=== PATIENT | female | born 1930 | race Caucasian/White ===

== ENCOUNTER 2017-04-14 10:42 | Emergency (ER) | payer MEDICARE, OTHER ==
[~2017-04-14] VITALS: Ht 170.2 cm; Wt 78.9 kg
[~2017-04-14 10:42] MED LIST: AMLODIPINE BESYL5 MG PO; ATENOLOL25 MG PO; ATENOLOL50 MG PO; GLUCOPHAGE XR500 MG PO; HYDROCHLOROTHIA25 MG PO; KLOR-CON M2020 MEQ PO; LISINOPRIL40 MG PO; LOVASTATIN10 MG PO; METFORMIN HCL500 MG PO; NORCO 5-325 TA1 EACH PO; SYNTHROID88 MCG PO; ULTRAM50 MG PO; VALTREX1000 MG PO; WARFARIN SODIU2.5 MG PO; ZOFRAN ODT4 MG SL
[2017-04-14] MEDS ORDERED: MAGNESIUM400 MG PO (11:01)
[2017-04-14] MEDS ORDERED: SOTALOL80 M1 PO (11:02)
[2017-04-14] MEDS ORDERED: CARDIZEM CD120 MG PO (12:23)
[2017-04-14] MEDS ORDERED: LISINOPRIL10 MG PO (12:23)
--- NOTE | 2017-04-14 14:54 | EKG ---
[facility] [address] [facility] [place] [address] Signed Atrial fibrillation with premature ventricular or aberrantly conducted complexes Minimal voltage criteria for LVH, may be normal variant ST \T\ T wave abnormality, consider lateral ischemia Prolonged QT Abnormal ECG When compared with ECG of 14-APR-2017 10:40, (Unconfirmed) Significant changes have occurred Confirmed by WALKER LOAIZA MD ([id number]) on 04/14/2017 2:54:44 PM Electronically Signed By: WALKER LOAIZA MD 04/14/17 1454 PATIENT NAME: JUANY OJEDA MEG Electrocardiogram DATE OF : 34 PHYSICIAN: WALKER LOAIZA MD REPORT #: [id number] REPORT IS CONFIDENTIAL AND NOT TO BE RELEASED WITHOUT AUTHORIZATION
--- NOTE | 2017-04-14 14:54 | EKG ---
[facility] [address] [facility] [place] [address] Signed Sinus tachycardia Marked ST abnormality, possible inferolateral subendocardial injury Abnormal ECG No previous ECGs available Confirmed by WALKER LOAIZA MD ([id number]) on 04/14/2017 2:54:14 PM Electronically Signed By: WALKER LOAIZA MD 04/14/17 1454 PATIENT NAME: JUANY OJEDA Electrocardiogram DATE OF : 34 PHYSICIAN: WALKER LOAIZA MD REPORT #: [id number] REPORT IS CONFIDENTIAL AND NOT TO BE RELEASED WITHOUT AUTHORIZATION
[2017-06-16] MEDS ORDERED: HYDROCHLOROTHIA25 MG PO (13:29)
[2017-08-13] MEDS ORDERED: LEVOTHYROXINE112 MCG (13:52)
[2017-08-13] MEDS ORDERED: CARDIZEM60 MG PO (15:53)
== END 2017-04-14 12:49 | disposition home or self-care (01) ==
LOC: ED 10:42
DX: I48.91 Unspecified atrial fibrillation (principal); I10 Essential (primary) hypertension; E03.9 Hypothyroidism, unspecified; Z90.710 Acquired absence of both cervix and uterus; Z90.49 Acquired absence of other specified parts of digestive tract; Z90.10 Acquired absence of unspecified breast and nipple; Z88.5 Allergy status to narcotic agent; Z79.899 Other long term (current) drug therapy; Z79.01 Long term (current) use of anticoagulants
CPT/HCPCS: 80053; 84484; 85025; 85610; 93005; 93010; 96374; 99284; J7030

== ENCOUNTER 2017-12-07 13:23 | Inpatient (IN) | payer MEDICARE, OTHER ==
[~2017-12-07] VITALS: Ht 170.2 cm; Wt 71.2 kg
[~2017-12-07 13:23] MED LIST changes: +CARDIZEM CD120 MG PO; +CARDIZEM60 MG PO; +LISINOPRIL10 MG PO; +MAGNESIUM400 MG PO; +SOTALOL80 M1 PO
--- NOTE | 2017-12-07 18:04 | NUR ---
PATIENT ARRIVED TO [facility] FROM ER. PATIENT IS ON 2L OF O2, HAS A VERY PRODUCTIVE SOUNDING COUGH, DENIES PAIN. PATIENT WAS ABLE TO MOVE SELF FROM GURNEY TO BED WITH MINIMAL ASSIST. MILD REDNESS NOTED TO COCCYX AREA, IS BLANCHABLE, NO BREAKDOWN NOTED.
[2017-12-07] MEDS ORDERED: ZESTRIL10 MG PO (18:25)
[2017-12-07] MEDS ORDERED: COUMADIN2.5 MG PO (18:28)
--- NOTE | 2017-12-07 18:40 | NUR ---
Medications reconciled with patient
--- NOTE | 2017-12-07 19:14 | NUR ---
RECEIVED REPORT, PT IS AWAKE AT THIS TIME WITH VISITOR IN THE ROOM.
--- NOTE | 2017-12-07 20:34 | NUR ---
ADMINISTERED MEDS AND TOOK VS, PT IS ON COMMODE AT THIS TIME.
--- NOTE | 2017-12-08 00:15 | NUR ---
HELPED PT TO COMMODE, URINE SAMPLE OBTAINED AND PT IS BACK IN BED WITH ALARM ON AND CALL LIGHT WITHIN REACH.
--- NOTE | 2017-12-08 03:00 | NUR ---
PT IS AWAKE IN BED, VS TAKEN, PT DENIES NEEDS AT THIS TIME. BED ALARM IS ON AND CALL LIGHT IS WITHIN REACH.
--- NOTE | 2017-12-08 04:12 | NUR ---
PT IS A 1PA WITH WALKER, SHE SITS UP AT THE EDGE OF THE BED AT TIMES AND IS UNSTEADY ON HER FEET. PT TRIED GETTING OUT OF BED WITHOUT HELP, USE BED ALARM. PT IS ON DROPLET PRECAUTION FOR PNA. SHE REQUIRES 2 LNC AND LUNGS SOUND DIMINISHED IN THE BASES, SHE ALSO HAS A PRODUCTIVE COUGH. VOIDING QS.
--- NOTE | 2017-12-08 06:43 | NUR ---
OBTAINED VS, PT DENIES FURTHER NEEDS AT THIS TIME.
--- NOTE | 2017-12-08 07:38 | NUR ---
THIS DUST COLLECTOR ATTENDANT GOT PATIENTS BREAKFAST ORDER. ASSISTED PATIENT WITH WASHING FACE AND HANDS. CALL LIGHT IN REACH. NO OTHER NEEDS AT THIS TIME.
--- NOTE | 2017-12-08 08:28 | NUR ---
PT EDUCATED REGARDING NUTRITION. ASSISTED PT IN ORDERING BREAKFAST. PT NOW ON 1L O2 VIA NC, SAT 93%. TITRATED DOWN BY RT JAME. PT UP TO BATHROOM WITH FWW WITH 1 PERSON SBA. PT VOIDED URINE IN TOILET, MISSED HAT. LARGE VOID. PT EDUCATED REGARDING FALL PRECAUTIONS. PT WILL SIT UP IN RECLINER WITH CHAIR ALARM ON FOR BREAKFAST.
--- NOTE | 2017-12-08 08:48 | NUR ---
PT SITTING UP IN RECLINER EATING BREAKFAST. HAS CHAIR ALARM ON.
--- NOTE | 2017-12-08 11:00 | NUR ---
PATIENT SITTING UP IN CHAIR. RN ORDERED PATIENT LUNCH. LINENS CHANGED. CALL BUTTON IN REACH. NO OTHER NEEDS AT THIS TIME.
--- NOTE | 2017-12-08 11:14 | NUR ---
PT SITTING UP AT EDGE OF BED. GAVE TYLENOL 500 MG PO PRN FOR C/O 04/30 HEADACHE. CHECKED BG, 203. BED ALARM ON.
--- NOTE | 2017-12-08 13:06 | NUR ---
PT C/O FEELING SHAKY, COOL AND CLAMY, AND STATED THAT SHE FEELS "A LITTLE BIT DIZZY". CHECKED B. PT DENIED NAUSEA. PT IS EATING LUNCH.
--- NOTE | 2017-12-08 13:21 | EKG ---
[facility] [address] [facility] [place] [address] Signed Normal sinus rhythm Possible Left atrial enlargement Septal infarct , age undetermined Abnormal ECG When compared with ECG of 13-AUG-2017 13:50, Septal infarct is now present Inverted T waves have replaced nonspecific T wave abnormality in Anterior leads Confirmed by WALKER LOAIZA MD ([id number]) on 12/08/2017 1:21:38 PM Electronically Signed By: WALKER LOAIZA MD 12/08/17 1321 PATIENT NAME: JUANY OJEDA Electrocardiogram DATE OF : 34 PHYSICIAN: WALKER LOAIZA MD REPORT #: [id number] REPORT IS CONFIDENTIAL AND NOT TO BE RELEASED WITHOUT AUTHORIZATION
--- NOTE | 2017-12-08 13:30 | NUR ---
PT REPORTED HEADACHE IS BETTER, 3/10.
--- NOTE | 2017-12-08 13:57 | NUR ---
DR. LOAIZA NOTIFIED OF PT'S INITIAL C/O FEELING DIZZY, CLAMY, ETC. ALSO NOTIFIED THAT BG WAS 188. ASKED FLIGHT RESERVATIONS MANAGER MARAL TO OBTAIN VS. MARAL NOTIFIED THIS RN THAT SHE HAD RELAYED VS TO DR LOAIZA, AND THAT THE MEDICAL STUDENT WAS OBTAINING ANOTHER BP READING, BP READING WAS LOW. THIS RN OBTAINED BP, IN 90s/50, NOTIFIED DR. LOAIZA. THIS RN NOTED THAT PT'S HEART RATE AND RHYTHM WERE IRREGULAR. PT HAS HX OF AFIB. NOTIFIED DR. LOAIZA THAT PT'S HR WAS MORE IRREGULAR THAN IT HAD BEEN THIS AM. DR. LOAIZA PLACED ORDERS FOR IVF AND BOLUS OF 1L LR. LR BOLUS NOW INFUSING. PT STATED THAT HER DIZZINESS HAS IMPROVED, STATED THAT SHE NO LONGER FEELS SHAKY, STATED THAT SHE DID NOT FEEL " MUCH" CLAMY SENSATION, BUT STATED THAT SHE FEELS WEAK.
--- NOTE | 2017-12-08 15:05 | NUR ---
PT UP TO BEDSIDE COMMODE, THEN TO BED AFTER SHE VOIDED AND CHANGED HER UNDERGARMENTS AND GOWN. PT DENIED DIZZINESS. STATED THAT SHE FEELS "FULL" FROM THE BOLUS OF LR. NOW HAS LR INFUSING AT 75 CC/HR. DENIES FEELING SHAKY OR CLAMY.
--- NOTE | 2017-12-08 16:54 | NUR ---
PT SITTING UP AT EDGE OF BED, BED ALARM ON. PROVIDED PT WITH EDUCATON REGARDING FALL RISK AND SAFETY PRECAUTIONS, INCLUDING THE NEED TO CALL FOR STAFF ASSISTANCE PRIOR TO ANY SELF TRANSFER ATTEMPTS. PT VERBALIZED UNDERSTANDING. ISAIAH, CELL STRIPPER FINAL IN TO SEE PT.
--- NOTE | 2017-12-08 17:33 | NUR ---
PT HAD A GOOD MORNING, BUT FELT POORLY AFTER LUNCH. BP HAD DROPPED WHEN ASSESSED. LR 1L BOLUS GIVEN, AND LR AT 75 CC/HR STARTED. BP SLIGHTLY INCREASED WITH THIS. DR. LOAIZA AWARE. PT UP WITH 1-2 PERSON ASSIST WITH FWW. BED ALARM AND CHAIR ALARM IN USE, PT IS IMPULSIVE AND ATTEMPTS TO GET UP WITHOUT CALLING FOR ASSISTANCE AT TIMES. PT PROVIDED WITH EDUATION AND ORIENTATION REPEATEDLY THIS SHIFT FOR FALL PREVENTION. TOLERATING ADA DIET. VOIDING QUANTITY SUFFICIENT URINE. HAD HEADACHE, WHICH PT REPORTED RESOLVED WITH PRN ACETAMINOPHEN.
--- NOTE | 2017-12-08 18:02 | NUR ---
THIS BITUMEN PLANT OPERATOR ASSISTED PATIENT FROM SITTING UP ON SIDE OF THE BED TO HER CHAIR. 1PERSON WITH FWW. RN GOT FRESH ICE WATER FOR PATIENT. PATIENT STATES SHE HAS NO PAIN, BUT FEELS NAUSEOUS. RN NOTIFIED. CALL LIGHT WITHIN REACH. NO OTHER NEEDS AT THIS TIME.
--- NOTE | 2017-12-08 18:41 | NUR ---
PT SITTING UP IN RECLINER. FAMILY AT SIDE. PERSONAL SUPPLIES AND CALL LIGHT IN REACH. PT HAD DECLINED DINNER, BUT AGREED TO A CHEESE AND CRACKER TRAY. PLACED ORDER FOR THIS WITH DIETARY.
--- NOTE | 2017-12-08 19:10 | NUR ---
IN ROOM FOR REPORT, PT IS AWAKE IN CHAIR WITH VISITORS IN THE ROOM. CALL LIGHT IS WITHIN REACH.
--- NOTE | 2017-12-08 19:18 | NUR ---
PATIENT SITTING UP IN CHAIR VISITING WITH FAMILY MEMBERS. THIS MANAGER RESEARCH BROUGHT PATIENT CHEESE, CRACKERS, AND FRUIT TRAY BY RN'S REQUEST. CALL LIGHT IN REACH. NO OTHER NEEDS AT THIS TIME.
--- NOTE | 2017-12-08 21:00 | NUR ---
PT IV ALARM SOUNDING. ASSISTED. PT REQUESTED TO USE THE BATHROOM. DIFFICULT TO GET OUT OF THE CHAIR, ONCE UPRIGHT, SHE SAID OH I AM ALREADY GOING. HAD NO INCONT PRODUCT ON, URINATED ALL THE WAY TO THE BATHROOM, SOAKED SOCKS, GOWN WET. WENT 100 IN THE TOILET MISSED HAT, HAD SMALL BM. CLEANNED UP, REDRESSED, BACK INTO BED, WITH 4 RAILS UP, CALL LIGHT WITHIN REACH.
--- NOTE | 2017-12-08 21:20 | NUR ---
PT HAD PHONE CALL, WENT TO ASSIST PT, FOUND HER TRYING TO GET OUT OF BED, SAYING SHE NEEDED TO USE THE BATHROOM AGAIN. GOT UP TO THE BATHROOM, WAS INCONT LARGE AMOUNT URINE, VOIDED SMALL AMOUNT IN TOILET. ASSISTED BACK TO BED, BED ALARM IN PLACE. CALLER CALLED PT AGAIN, PT TALKING ON PHONE WHEN RN LEFT ROOM. PT WANTED TO SIT ON THE EDGE OF THE BED BY HERSELF. SHE WAS ENCOURAGED NO, DUE TO SAFETY RISKS, AND HER INABILITY TO REMEMBER NOT TO GET UP ON HER OWN.
--- NOTE | 2017-12-08 22:21 | NUR ---
IN ROOM PT IS RESTING AWAKE IN BED WATCHING TV. GIVING EVENING MEDS AT THIS TIME.
--- NOTE | 2017-12-09 00:14 | NUR ---
PT IS AWAKE IN BED SITTING AT EDGE, SHE REMOVED HER O2 AND STATES "SHE CAN'T BREATHE ANYWAY" ADVISED HER WILL TRY TO GET NASAL SPRAY.
--- NOTE | 2017-12-09 06:00 | NUR ---
MEDITECH WAS DOWN FROM 0100 TO 0530, SEE PAPER CHART FOR RECORD.
--- NOTE | 2017-12-09 06:00 | NUR ---
THE THREAD GRINDER NOTIFIED THIS RN THAT THE PATIENT WAS ASKING WHERE HER SUIT CASE WAS AND HER 3500 DOLLARS IS MISSING. I WENT INTO ROOM AND REMINDED PT THAT SHE IS IN [facility] AND SHE DOES NOT HAVE A SUITCASE AND PROBABLY WOULDNT BRING $3500 TO THE HOSPITAL. GAVE PT HER BAG OF BELONGINGS SO SHE COULD LOOK THROUGHT THEM.
--- NOTE | 2017-12-09 07:51 | NUR ---
PATIENT REMAINS UP IN THE CHAIR WITH HER ALARM ON, PATIENT IS ORIENTED TO SELF AND PLACE AT THIS TIME. SHE REMAINS ON 2L OF OXYGEN WITH A SATURATION OF 98%. AM MEDICATION GIVEN AT THIS TIME AND GLUCOSE CHECK WAS 124 NO INSULIN NEEDED AT THIS TIME.
--- NOTE | 2017-12-09 08:00 | NUR ---
NEW BAG OF IV FLUIDS HUNG AT THIS TIME.
--- NOTE | 2017-12-09 08:30 | NUR ---
PATIENT SITTING UP IN CHAIR FOR BREAKFAST. CALL BUTTON IN REACH. OFFERED PATIENT A WARM BLANKET PAIENT REFUSED. NO OTHER NEEDS AT THIS TIME.
--- NOTE | 2017-12-09 10:00 | NUR ---
AMBULATED PATIENT TO THE END OF THE NURSES STATION AND BACK WITH AMBULATION O2 SAT DOWN TO 74% ON RA. AT REST ON RA PATIENT WAS 93%. PATIENT STATES THAT SHE FELT WEAK DURING AMBULATION BUT IS STEADY ON HER FEET. PATIENT BACK TO HER CHAIR AND IS PLACED BACK ON OXYGEN AT 2L PER NC.
--- NOTE | 2017-12-09 10:46 | NUR ---
PATIENT IN CHAIR WITH EYES CLOSED. NO NEEDS AT THIS TIME.
--- NOTE | 2017-12-09 11:02 | NUR ---
patient is very sleepy sitting up in the chair, patient glucose check at this time 158 no insulin needed at this time.
--- NOTE | 2017-12-09 11:09 | NUR ---
patient given 1 unit of insulin sq, she remains resting up in the chair.
--- NOTE | 2017-12-09 12:15 | NUR ---
PATIENT SITTING UP IN THE CHAIR FINISHING UP HER LUNCH, HER FRIEND IS VISITING WITH HER. HAD TO EXPLAIN TO THE PATIENT WHAT WAS ON HER TRAY SHE SEEMED CONFUSED THAT SHE HAD A GRILLED CHEESE SANDWICH SHE DIDN'T KNOW WHAT IT WAS.
--- NOTE | 2017-12-09 14:46 | NUR ---
PATIENT SITTING IN THE CHAIR ON 2L OF OXYGEN, SHE TOLERATED AMBULATING WITH PHYSICAL THERAPY MUCH BETTER WITH HER OXYGEN ON. PATIENT AMBULATED WITH HER FWW AND THE PHYSICAL THERAPIST. SHE REMAINS STEADY WITH HER FWW.
--- NOTE | 2017-12-09 15:49 | NUR ---
PATIENT HAS HER CHAIR ALARM ON AND IS REMINDED TO KEEP HER OXYGEN TUBING IN HER NOSE AT THIS TIME
--- NOTE | 2017-12-09 17:35 | NUR ---
PATIENT HAS BEEN DISORIENTED TO PLACE, TIME, AND DATE THROUGHOUT THE DAY TODAY. SHE WAS NOT ABLE TO ORDER LUNCH OR DINNER FOR HERSLEF THIS WAS A DIFFICULT TASK FOR HER TO PICK WHAT TO EAT. PATIENT AMBULATED IN THE HALLWAY ONCE WITH OXYGEN AND ONCE WITHOUT. SATURATIONS QUICKLY DROP WHEN THE PATIENT IS WALKING WITHOUT OXYGEN. AT THIS TIME SHE REMAINS ON 2L PER NC. SHE HAS AN ALARM ON WHEN SHE IS UP IN THE CHAIR AND USES A FWW WHEN AMBULATING. SHE NEEDS STANDBY ASSISTANCE.
--- NOTE | 2017-12-09 18:49 | NUR ---
THIS INNER DIAMETER GRINDER TOOL ASSISTED PATIENT FROM BED TO BATHROOM 1 PERSON WITH FWW. THEN ASSISTED FROM BATHROOM TO CHAIR 1 PERSON WITH FWW. PATIENT STATES SHE FEELS NAUSEOUS. RN NOTIFIED. FRESH ICE WATER. CALL LIGHT WITHIN REACH. NO OTHER NEEDS AT THIS TIME.
--- NOTE | 2017-12-09 20:48 | NUR ---
awake,O2 2L NC, exp and ins wheezing bilat present, moist, non productive frequent cough presetn. 2 sl patent. cont pulse ox in place 97%, continues on droplet isolation. no requests
--- NOTE | 2017-12-09 21:33 | NUR ---
ROUNDED CHARGE. PATIENTS VITALS TAKEN AND RECORDED. PATIENT ASSISTED TO THE RESTROOM A SBA W/FWW. PATIENT IS NOW IN BED RESTING. PATIENT GIVEN FRESH ICE WATER PER REQUEST AND A WARM BLANKET. CALL LIGHT IN REACH.
--- NOTE | 2017-12-09 21:59 | NUR ---
Up to bro w/o using call light, took oximetry and O2 off. voided, back to bed, easily rediredctable. Cont pulse ox sats on return 76 ra, up to 95% inmediately after placing O2 back on. Alert to name, cooperative. Pt instructed to get back to bed, declines, up in chair at this time. Fall risk precautions in place. WIll place bed alarm in chair and bed. Gets up w/o assist and one person assist.
--- NOTE | 2017-12-09 22:35 | NUR ---
pt walked out of room, holding purse and walked out of room. Not very receptive. O2 placed back on at 2L NC. and walked with pt. Weak legs. Pt moved to room 120 for closer observation, reasong explained to pt, not very receptive and unabe to assess understandig
--- NOTE | 2017-12-09 23:07 | NUR ---
PT SITTING EDGE OF BED, CALLED 911, ALERT TO SELF ONLY, REDIRECTABLE, O2 2L NC TAKES OFF, REPOSITIONED MULTIPLE TIMES,
--- NOTE | 2017-12-10 00:47 | NUR ---
Still awake, O2 takes off and on,, currenlty in place. Calm, sitting on edge of bed, on Droplet Isolation, continues to have moist, nonproductive cough still present
--- NOTE | 2017-12-10 02:21 | NUR ---
Pt up to brp, voided, back to bed, continues to be confused but easily redirected, put her clothes on and off, took O2 off and replaced back on. Incontinent of urine, attends changed. Currently in bed, calm
--- NOTE | 2017-12-10 03:11 | NUR ---
pt sitting edge of bed. Removed 2 iv sited, site intact, iv tip intact. Taking O2 off, sats 88% room air, wrapped O2 cord like a braid around bed rails. More upset "I want to go home", explained reasong why pt should stay in hosp, needing O2, lungs with exp wheezing, weak. Not very receptive. Continue to reinforce teaching and reorient pt, explain all procedures and how they benefit pt.
--- NOTE | 2017-12-10 05:08 | NUR ---
PT CONTINUES ON DROPLET ISOLATION. LUNGS WITH EXP WHEEZING, HAS MOIST, NON PRODUCTIVE COUGH. HAS TAKEN O2 OFF AND ON. REPLACED NUMEROUS TIMES. CURRENTLY DECLINES TO HAVE O2 BACK INTO NARES. WRAPPED TUBING INTO ABRAID AROUND RAILS SPOT CHECK PULSE OX 83-89%, USING IS AND ACAPELLA 2X THIS SHIFT. PT SEMIRECEPTIVE TO INSTRUCTIONS, AND GETTING MORE ANXIOUS AN ANGRY OVER WANTING TO GO HOME AND GETTING OUT OF HOSP. ALERT TO SELF ONLY. EASILY REDIRECTED AT TIMES, HAS NOT ALEPT THIS SHIFT. HAS BEEN UP TO BRP 3X, VOIDED, HAD SMALL BM. CURRENTLY SITTING ON EDGE OF BED, WATCHING TV. DECLINED O2 BACK ON. CALM, CHARGE NURSE, RT AND RETAIL PARTS PROFESSIONAL AWARE. WILL NOTIFY
--- NOTE | 2017-12-10 05:38 | NUR ---
Pt walked out of room, declines to use O2, or mask, walked the hallway to room 121. Coop when asked to sit in w/c. O2 2L n/c placed on, walked around nursign tation in w/c and with O2, took off and declined to placed back on. Getting more angry and not as esily redirectable. nurse with pt for most of this shift
--- NOTE | 2017-12-10 07:29 | NUR ---
Dr Carrillo notified of pts increased agitaion, confusion and wanting to go home, refusing to keep O2 on. n.o given for seroquel for agitatin and ABG's . Pt tessa in w/c with eyewear manufacturing supervisor by chair
--- NOTE | 2017-12-10 07:42 | NUR ---
BEDSIDE REPORT RECEIVED FROM CODIE. PATIENT SITTING ON THE WHEELE CHAIR. DENIES PAIN AT THIS TIME. PATIENT ORIENT TO SELF, BUT SEEMED TO BE SOMEWHAT CONFUSED. RAMAN SHIPLEY SITTING WITH PATIENT.
--- NOTE | 2017-12-10 08:10 | NUR ---
PATIENT SITTING IN CHAIR EATING BREAKFAST. DENIES PAIN AT THIS TIME. PATIENT IS ALERT AND ORIENTTO SELF, DISORIENTED TO PLACE. NO IV SITE. EXPIRATORY WEEZE AUSCULTATED ON THE UPPER LOBES AND DIMINISHED BREATH SOUND ON THE BASES. TRACE EDEMA NOTED IN THE LOWER EXTREMITIES. PATIENT IS SOMEWHAT CONFUSED,DOES NOT FOLLOW DIRECTION WELL. FRIEND AT BEDSIDE. WILL CONTINUE TO MONITOR. PATIENT.
--- NOTE | 2017-12-10 09:20 | NUR ---
PATIENT ATE 100% OF HER BREAKFAST. SHE WAS ASSISTED AT THIS TIME UP TO THE BATHROOM AND GARMENTS WERE REMOVED SO THAT SHE COULD VOID. PATIENT VOIDED CLEAR YELLOW URINE AND NEW ATTENDS WERE PLACED ON THE PATIENT AT THIS TIME. PATIENT REDRESSED AND ASSISTED TO BED. ALARM PLACED ON THE PATIENT AT THIS TIME.
--- NOTE | 2017-12-10 09:53 | NUR ---
CHARGE NURSE JAKE ASSISTED PATIENT TO BATHROOM AND THEN BACK TO BED. PATIENT IS RESTING IN BED AT THIS TIME. OXYGEN 2L ON VIA NC. FRIEND AT BEDSIDE. WILL CONTINUE TO MONITOR.
--- NOTE | 2017-12-10 11:40 | NUR ---
PATIENT WAS UP WALKING IN THE [address] WITH PHYSICAL THERAPIST, PATIENT STILL ON OXYGEN WHILE WALKING. TOLERATED WELL. RESTING IN THE CHAIR AT THIS TIME. FRIEND AT BEDSIDE. CHAIR ALARM ON. NO APPARENT DISTRESS NOTED. WILL CONTINUE TO MONITOR
--- NOTE | 2017-12-10 13:19 | NUR ---
PATIENT RESTING IN THE CHAIR APPEARS TO BE SLEEPING. RR EVEN/UNLABORED. O2 READJUSTED. FRIEND IN ROOM. NO APPARENT DISTRESS. WILL CONTINUE TO MONITOR.
--- NOTE | 2017-12-10 14:27 | NUR ---
PATIENT STILL SLEEPING ON THE CHAIR. NO APPARENT DISTRESS. RR EVEN/UNLABORED. FRIEND AT BEDSIDE.
--- NOTE | 2017-12-10 18:11 | NUR ---
DR WINTER WAS NOTIFIED BY MARAL ABOUT PATIENT REFUSED TO TAKE HER MEDICATIONS.
--- NOTE | 2017-12-10 18:43 | NUR ---
PATIENT HAD A FAIR DAY UNTIL THIS PM . PATIENT IS BECOMING MORE CONFUSED AND REFUSED TO TAKE HER PM MEDS. NEW IV SITE ESTABLISHED, IV FLUID LR @ 50ML/HR. DR WINTER AWARE. PATIENT ALSO REFUSED VITALS. SLEPT MOST OF THE SHIFT. DAUGHTER WAS UPDATED.
--- NOTE | 2017-12-10 19:09 | NUR ---
BEDSIDE REPORT RECEIVED FROM NAOMI SIMEON. PT AWAKE, SITTING UP AT SIDE OF THE BED, FRIEND ISAIAH AT BEDSIDE. IVF INFUSING WNL. WILL CONTINUE TO MONITOR CLOSELY. PT'S FRIEND GAVE PT WATER. NO ADDL REQUESTS.
--- NOTE | 2017-12-10 20:00 | NUR ---
RN IN ROOM FOR 1:1 CLOSE MONITORING FOR SAFETY. PT ASSISTED TO RESTROOM FOR VOID, BACK TO CHAIR AT THIS TIME. GIVEN WINSTON PABLO. PT COMPLIANT WITH MED ADMINISTRATION OF LISINOPRIL, SOTALOL, TAMIFLU AND COUMADIN. PT REFUSES SEROQUEL AND METFORMIN. FRIEND ISAIAH IN ROOM ASSISTING PT WITH COMPLIANCE. PT INSISTS ON OPENING MEDICATIONS BELIEVES THEY ARE CONTAMINATED. RN REMAINS IN ROOM. SPO2 83% ON ROOM AIR, PT REFUSES OXYGEN ADMINISTRATION, HR 97, MANUAL BP 120/70.
--- NOTE | 2017-12-10 20:09 | NUR ---
ROUNDED CHARGE. PATIENT IS SITTING ON THE EDGE OF THE BED WITH FRIEND IN THE ROOM. STEPHANY RN AT THE BEDSIDE. PATIENT IS ALLOWING VITALS TO BE TAKEN. PATIENT IS A ONE ON ONE.
--- NOTE | 2017-12-10 20:40 | NUR ---
PT SOB AFTER AMBULATING TO RESTROOM WITH SPO2 83%. PT NOW AGREES TO USE OXYGEN, 2L OXYGEN BY NC APPLIED. SPO2 NOW 99% ON 2L. PT UP IN CHAIR EATING ORANGE SHERBERT. PERSONAL SUPPLIES, WATER IN REACH. RN REMAINS IN ROOM FOR CLOSE MONITORING.
--- NOTE | 2017-12-10 21:00 | NUR ---
PT ASSESSMENT COMPLETE. PTS LUNGS COARSE THROUGHOUT, CRACKLES IN BASES. PT HAS LOOSE COUGH, ON 2L OXYGEN BY NC AT THIS TIME, PT CONSISTENTLY ATTEMPTING TO REMOVE NC, EDUCATION PROVIDED. PT ORIENTED TO PERSON, PLACE, NOT LOCATION, NOT DATE, ORIENTED TO YEAR. HR REGULAR RHYTHM, 82 AT THIS TIME. PT UP OUT OF CHAIR, ASSISTED PT TO WALK ACROSS ROOM, AND BACK TO FOLDABLE CHAIR. PT STATES SHE IS SEEING SPIDER WEBS AND SMALL BUGS, ORIENTED TO NICOLE. RN REMAINS IN ROOM FOR CLOSE MONITORING. IVF INFUSING WNL.
--- NOTE | 2017-12-10 22:10 | NUR ---
PT SITTING IN CHAIR, ASSISTED TO RESTROOM WITH FWW AND 2PA FOR PT TO STAND. PT ON 2L OXYGEN BY NC. BACK TO BED, SITTING AT SIDE OF BED. PHONE CALL FROM PT'S DAUGHTER, PT VISITING WITH HER AT THIS TIME. NAOMI REHMAN IN ROOM FOR CLOSE MONITORING.
--- NOTE | 2017-12-10 22:32 | NUR ---
PHONE CALL FROM PTS SON, UPDATED RE PT STATUS. NAOMI REHMAN IN PT ROOM FOR 1:1 MONITORING FOR PT SAFETY.
--- NOTE | 2017-12-10 23:00 | NUR ---
PT GIVEN TOASTED YAKUT MUFFIN WITH PEANUT BUTTER, ATE 75%. PT CONTINUES TO REFUSE SEROQUEL AND METFORMIN MEDICATIONS DESPITE CONTINUED EDUCATION. PT CONTINUES ON 2L OXYGEN BY NC TOLERABLE, TAKING ON AND OFF, EDUCATION PROVIDED. RN IN ROOM FOR CLOSE MONITORING. PT OFFERED WATER, WARM BLANKETS AT THIS TIME, PT REFUSES.
--- NOTE | 2017-12-11 00:36 | NUR ---
PT ASSISTED TO CHAIR FROM BED WITH FWW AND 1PA, COMPLIANT WITH WEARING OXYGEN 2L NC AT THIS TIME. PT NOW IN CHAIR, IVF INFUSING. DENIES TOILETING NEEDS. PERSONAL SUPPLIES IN REACH. PT GIVEN WARM BLANKET, APPEARS DROWSY, CLOSING AND OPENING EYES. RN REMAINS IN ROOM FOR CLOSE MONITORING.
--- NOTE | 2017-12-11 01:31 | NUR ---
PT AWAKE, SITTING UP IN CHAIR. RN IN ROOM, ATTEMPTED TO ASSIST PT TO REPOSITION/RECLINE CHAIR. PT REFUSES, CONTINUES TO COIL UP OXYGEN TUBING, REARRANGING TRAY TABLE. PT OFFERED TOILETING NEEDS, ASSISTANCE TO TRANSFER TO BED. PT REFUSES AT THIS TIME. CLOSE 1:1 MONITORING FOR SAFETY.
--- NOTE | 2017-12-11 02:23 | NUR ---
PT ASSISTED TO RESTROOM FOR VOID, ORAL CARE, TO WASH FACE. BACK TO BED AT THIS TIME, IVF INFUSING WNL. LIGHTS OFF IN ROOM. RN IN ROOM FOR CLOSE MONITORING FOR SAFETY. PT FOLLOWING INSTRUCTIONS APPROPRIATELY, CONTINUES TO PULL AT IV AND OXYGEN TUBING.
--- NOTE | 2017-12-11 03:47 | NUR ---
PT APPEARS TO BE SLEEPING AT THIS TIME, EYES CLOSED, RR 22. RN IN ROOM FOR CLOSE PT MONITORING FOR SAFETY. PT ON 2L OXYGEN BY NC, IVF INFUSING.
--- NOTE | 2017-12-11 05:47 | NUR ---
PT DROWSY, AWAKENS, STATES THAT SHE IS COLD. PT GIVEN WARM BLANKET. ASSESSMENT COMPLETE AT THIS TIME, LUNGS COARSE, DIMINISHED THROUGHOUT ALL LOBES, PT CONTINUES TO COUGH, NON-PRODUCTIVE. PT ON 2L OXYGEN AT THIS TIME. BACK TO SLEEP. EYES CLOSED, BREATHING NON-LABORED. RN IN ROOM FOR 1:1 MONITORING.
--- NOTE | 2017-12-11 05:57 | NUR ---
PT CONTINUES TO REQUIRE CLOSE MONITORING/REORIENTATION FOR SAFETY. PT ORIENTED TO PERSON, EVENT, AND MONTH/YEAR. PT UP TO RESTROOM FOR VOIDS WITH FWW, ABLE TO FOLLOW COMMANDS W SBA. LUNGS COARSE, PT CONTINUES TO HAVE COARSE, NON- PRODUCTIVE COUGH. PT SLEEPING IN BED IN NETWORK SECURITY CONSULTANT HOURS, AWAKE FOR MOST OF SHIFT. PT REFUSING SCHEDULED SEROQUEL AND METFORMIN NOT ADMINISTERED DURING DAY SHIFT.
--- NOTE | 2017-12-11 07:22 | NUR ---
RECIEVED REPORT FROM NAOMI JONAS. PT HAS BEEN 1:1, SLEEPING SINCE APROX 0300. PT STILL SLEEPING, O2 IN PLACE AT 2L. BREATHING EVEN AND UNLABORED. IV FLUIDS RUNNING AT 50ML/HR.
--- NOTE | 2017-12-11 10:50 | NUR ---
PT TOOK SHOWER WITH RN, TOLERATED WLL. SAT IN CHAIR FOR MOST OF MORNING. BACK IN BED AT THIS TIME. WAS ABLE TO CARRY CONVERSATION WITH RN. PT REFUSED PHYSICAL THERAPY, DID NOT WANT TO WALK OR DO BED EXERCISES. PT WAS VERY ADAMENT ABOUT NOT DOING THEARPY. IV FLUIDS DC PER ORDER. ENCOURAGED PT TO USE IS AND CPT WITH LITTLE SUCEESS.
--- NOTE | 2017-12-11 11:28 | NUR ---
PATIENT RESTING IN BED WATCHING TV. DR WINTER CAME IN AND TALKED WITH PATIENT.
--- NOTE | 2017-12-11 12:08 | NUR ---
PATIENT RESTING IN BED WITH EYES CLOSED. APPEARS TO BE SLEEPING.
--- NOTE | 2017-12-11 13:08 | NUR ---
PT RESTED FOR SEVERAL HOURS. UPON WAKING, ASSISTED PT IN ORDERING LUNCH. PT MORE DISAGREABLE SINCE WAKING. WOULD LIKE TO USE THE PHONE, BUT WILL NOT ALLOW DIRECTION OR ASSISTANCE. UNABLE TO OPERATE BY HERSELF. VITAL SIGNS TAKEN.
--- NOTE | 2017-12-11 14:53 | NUR ---
TOOK PATIENT TO THE BATHROOM. NOW IS SITTING UP IN BED EATING HER LUNCH AND VISITING FAMILY.
--- NOTE | 2017-12-11 18:35 | NUR ---
PT NO LONGER ON 1:1. PT ABLE TO CARRY ON A CONVERSATION. PT REPORTS WHEN SHE NEEDS TO VOID. NO BM THIS SHIFT. PT TOOK ALL MEDS WITH WATER WITH NO ISSUES. PT AWAKE MOST OF THE SHIFT. CONTINUES TO NEED 2L O2. IV FLUIDS DISCONTINUED. LUNGS COARSE AND JUNKY, CLEAR SLIGHTLY WITH COUGH. PT REPORTS NON-PRODUCTIVE COUGH.
--- NOTE | 2017-12-11 19:05 | NUR ---
RECEIVED REPORT FROM DAY SHIFT RN. PATIENT IS RESTING IN RECLINER. PATIENT IS RECEPTIVE TO BEDSIDE REPORT. PATIENT HAS X2 CHAIR ALARMS ON. NO NEEDS NOTED. CALL LIGHT IN REACH.
--- NOTE | 2017-12-11 20:08 | NUR ---
PATIENT ASSESMENT COMPLETED. PATIENT COMPLETED IS AND CORONET. PATIENT TOELRATED ACTIVITY WELL. PATIENT IS REQUESTING TO GO TO BED. PATIENT EDUCATED THAT SHE HAD MEDICATIONS THAT SHE WHERE ORDERED BY THE DOCTOR, AND I NEEDED TO DO HER VITALS. PATIENT AGREED TO THESE ACTIVITIES. PATIENTS VITALS TAKEN AND RECORDED. PATIENT ALSO TOOK HER MEDICATIONS, BUT ONLY IF SHE OPENED THEM. PATIENT WAS ABLE TO OPEN MEDICATIONS. PATIENT DID ALLOW STAFF TO ASSIST WITH CUTTING MEDICATION IN HALF. PATIENT ASSISTED TO THE BED A SBA W/FWW. PATIENT PROVIDED A WARM BLANKET. PATIENT IS RESTING IN BED NOW. BED ALRM IN PLACE FOR SAFETY. PATIENTS CALL ALARM IS WITHIN REACH. AND PATIENT EDUCATED ON USE OF CALL LIGHT. PATIENT VERBALIZED UNDERSTANDING.
--- NOTE | 2017-12-11 21:20 | NUR ---
PATIENT WAS RESTLESS IN BED. PATIENT STATED "I AM HUNGRY" MADE PATIENT TOLATO SOUP WITH CRACKERS PER PATIENT REQUEST. PATIENT IS SITTING BED EATING SOUP AND CRACKERS. BED ALRM REMAINS ON FOR SAFETY. CALL LIGHT IN REACH. NO FURTHER NEEDS NOTED.
--- NOTE | 2017-12-11 21:45 | NUR ---
PATIENT IS RESTING IN BED WITH EYES CLOSED. PATIENT REMAINS ON 2L VIA NC. PATIENTS BREATHING IS EVEN AND UNLABORED, RR 17. BED ALARM IS ON FOR SAFETY AND CALL LIGHT IS WITH IN REACH.
--- NOTE | 2017-12-11 23:05 | NUR ---
PATIENT CONTINUES TO REST IN BED WITH EYES CLOSED. RR 17. BED ALRM REMAINS ON FOR SAFETY. CALL LIGHT IN REACH.
--- NOTE | 2017-12-12 00:31 | NUR ---
PATIENT WAS RESTLESS IN BED. [place] [facility] [place] WAS A PIVOT TRANSFER. PATIENT WAS INCONTINENT. PATIENT WAS ALSO ABLE TO VOID. PATIENT IS NOW BACK IN BED RESTING. PATIENT COMPLAINS OF BEING COLD. PATIENT GIVEN WARM BLANKETS PER REQUEST. PATIENT DENIES ANY NEEDS. PATIENTS BED ALARM IS ON FOR SAFETY. CALL LIGHT IN REACH.
--- NOTE | 2017-12-12 01:01 | NUR ---
PATIENT AWOKEN AND REQUESTED A WARM BLANKET. PATIENT DENIES ANY FURTHER NEEDS. CALL LIGHT IN REACH. BED ALARM REMAINS ON FOR SAFETY
--- NOTE | 2017-12-12 03:19 | NUR ---
PATIENT CONTINUES TO REST IN BED WITH EYES CLOSED. PATIENTS BREATHING IS EVEN AND UNLABORED, RR 18. CALL LIGHT IN REACH. BED ALARM IS ON FOR SAFETY.
--- NOTE | 2017-12-12 03:51 | NUR ---
PATIENT WAVED AT STAFF. PATIENT REQUESTED A WARM BLANKET STATING "I AM SO COLD". PATIENT DENIES THE NEED TO GET UP AND USE RESTROOM. PATIENT DENIES FURTHER NEEDS. CALL LIGHT IN REACH. BED ALARM ON FOR SAFETY.
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
--- NOTE | 2017-12-12 05:41 | NUR ---
PATIENT RESTED FOR THE GREATER PART OF THE SHIFT. PATIENT IS ON AN ADA DIET AND TOLERATING WELL. PATIENT DID EAT TOMATOE SOUP AND CRACKERS. PATIENT REMAINS ON 2L VIA NC. PATIENT IS A SBA W/FWW. PATIENT SL AND IV FLUSHES WELL. PATIENT ENCOURAGED TO DO IS AND ACAPELLA. PATIENT IS FORGETFUL AND CONFUSED AT TIMES. PATIENT IS NOT ORIENTED TO SELF, DATE, TIME, SURROUNDINGS OR EVENT. PATIENT REQUIRES FREQUENT OREINTATION. PATIENT DOES FOLLOW DIRECTIONS. PATIENT DOES NOT USE CALL LIGHT. PATIENT DOES REQUIRE CHAIR OR BED ALARM FOR SAFETY.
--- NOTE | 2017-12-12 06:24 | NUR ---
LAB IN THE ROOM. PATIENT ALLOWED DESOLDERER TO DRAW BLOOD. STATING "NOT TO MUCH I HAVE TO GO HOME TODAY". PATIENTS VITALS TAKEN AND RECORDED. PATIENTS MORNING MEDICATIONS TAKEN PER ORDER. PATIENT OPENED HER THYROID MEDICATION HERSELF AND CHEWED PILL. WHEN ASKED WHY SHE CHEWED UP HER MEDICATION, PATIENT STATED "IT TASTES GOOD" PATIENT ALSO BRUSHED HER TEETH AND USED MOUTH WASH APPROPRIATELY. PATIENT HAS IV ABX INFUSING. PATIENT WAS NOT ABLE TO STATE DATE, TIME, OR SURROUNDINGS. PATIENT WAS ABLE TO STATE NAME AND FOR DESOLDERER. PATIENT ALSO TOLD DESOLDERER "I HAVE TO GET HOME MY SON IS HEAR WITH MY GRANDCHILDREN" PATIENT REORIENTED TO TIME COOKIE AND SURROUNDINGS. PATIENT REMAINS RESTING IN RECLINER. PATIENT HAS CHAIR ALARM ON FOR SAFETY. CALL LIGHT IN REACH.
--- NOTE | 2017-12-12 07:30 | NUR ---
report given from loy bowen. patient sitting up in chair. patient is currently on 2 l per nc. when asked patient what the date was. patient stated that it was november. patient was able to state that she was in [place], but unable to identify the building that she was in. when asked, patient stated, " you tell me what this building in since you keep changing the [place].". attempted to reorient patient. patient did not seem impressed with answers. chair alarm is in place.
--- NOTE | 2017-12-12 07:45 | NUR ---
patients iv was peeping. went into room to assess. patient has small pocket knife and was cutting iv tubing. knife was taken away. when asked patient what she was doing patient was unable to say. informed patient that she cannot cut her iv tubing or have a pocket knife in the hospital. patient just stated, " why not". call nursing sup to inform her of what happened in patients room
--- NOTE | 2017-12-12 08:07 | NUR ---
patient was sitting in chair. assessment compelte. breakfast brought into room. patient agreeable to assessment. continue to be on 2 l per nc. vitals taken.
--- NOTE | 2017-12-12 09:29 | NUR ---
UPDATED DR. WINTER ON PATIENT. PATIENT IS CURRENTLY SITTING UP IN CHAIR. FRIEND IN ROOM. CHAIR ALARMS REMAIN IN PLACE.
--- NOTE | 2017-12-12 10:46 | NUR ---
WORKED WITH PHYSICAL THERAPY. AGREED TO WALK 1/2 A LAP. CHECKED PATIENTS OXYGEN. PATIENT SATING 97 PERCENT ON 1 L PER NC AFTER THE ACTIVITY.
--- NOTE | 2017-12-12 10:52 | NUR ---
PT WALKED 1/2 LAP WITH PHYSICAL THERAPY, TO BACK RN STATION. PT THEN REFUSED TO CONTINUE WALKING. RN BROUGHT WHEELCHAIR TO PT AND WHEELED HER BACK TO ROOM WITH FAMILY AND PHYSICAL THERAPY. PHYSICAL THERAPY SETTLED PT BACK IN CHAIR WITH CALL LIGHT AND CHAIR ALARM. FAMILY AT BEDSIDE. PT MAINTAINED O2 AT 96% ON 1L O2 DURING WALK.
--- NOTE | 2017-12-12 11:45 | NUR ---
PT FAMILY LEFT. PT SITTING IN CHAIR WITH 2 CHAIR ALARMS ON. PT IS ALLOWING O2 AT THIS TIME.
--- NOTE | 2017-12-12 12:35 | NUR ---
PT O2 AT 82%. SHE HAD REMOVED O2. SHE DID ALLOW RN TO REPLACE O2, BUT REMOVED SHORTLY AFTER.
--- NOTE | 2017-12-12 14:34 | NUR ---
PT IS REFUSING TO HAVE VITALS TAKEN. PT STATES "I THINK YOU ARE TRYING TO TRICK ME. I DON'T NEED ANY OF THIS, THAT'S ENOUGH." PT IS ALSO REFUSING TO PUT O2 BACK ON. WILL INFORM RN AND MD. CALL LIGHT IS IN REACH.
--- NOTE | 2017-12-12 14:54 | NUR ---
PT REFUSED TO ALLOW ACCOUNT SUPPORT REP TO TAKE VITAL SIGNS. RN ATTEMPTED TO GET VS, PT ALSO REFUSED RN. PT DID ALLOW RN TO REPLACE O2, BUT PT REMOVED SHORTLY AFTER. RN WILL ATTEMT AGAIN IN 10 MINUTES.
--- NOTE | 2017-12-12 15:05 | NUR ---
PT DID ALLOW RN TO START IV ABX. DR WINTER CAME IN TO EXPLAIN TO PT HER LAB RESULTS AND WHY SHE IS HERE. PT WAS DISAGREEABLE TO DR WINTER, BUT DID ACCEPT PRINTOUT OF LABS.
--- NOTE | 2017-12-12 15:21 | NUR ---
PT ALLOWED RN TO ATTEMPT VITAL SIGNS. PT ALLOWED TEMP ONLY WITH HER PLACING THE PROBE. PT ALLOWED O2 AFTER PUTTING THE SENSOR ON RN. PT ALLOWED BP, BUT WAS RESTLESS AND MOVING DURING READING. RN WAS UNABLE TO RECHECK BP. VITALS RECORDED FOLLOWED: O2 91% (AFTER REPLACING O2 AT 3L), HR 85, RR 18, BP 146/105 MAP 115. MD AWARE OF VS AND PT REFUSAL/DIFFICULTLY GETTING VS.
--- NOTE | 2017-12-12 15:47 | NUR ---
RN RECHECKED O2. PT WAS DISAGREEABLE TO THE PORTABLE OXIMETER, BUT DID FINALLY LEAVE IT IN PLACE LONG ENOUGH TO GET A READING.
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
--- NOTE | 2017-12-12 17:03 | NUR ---
PT ALLOWED RN TO GIVE HER MEDS. SHE TOOK MEDS WITH WATER. CLEAR MOUTH POST MEDS. FAMILY ARRIVED.
--- NOTE | 2017-12-12 17:34 | NUR ---
PT REQUIRED 1:1 STAFFING AT TIMES DURING THE DAY. WAS MORE COOPERATIVE WITH FAMILY IN ROOM. PT REFUSED VITALS WITH DEBURRING TECHNICIAN, RN WAS ABLE TO GET SET. PT ALLOWED IV MEDICATIONS. PT TOOK PILLS WELL, NO RESIDUE SEEN IN MOUTH. PT VERY UNCOOPERATIVE WITH CARE. YELLING AT STAFF, REFUSING CARE. WILL VERBALIZE NEED TO GO TO BATHROOM.
--- NOTE | 2017-12-12 19:00 | NUR ---
FAMILY ALERTED STAFF THAT THE PATIENT SHOWED SIGNS OF CHOKING. PATIENT HAS A DRY COUGH. PATIENT DENIES CHOKING. PATIENT EVALUATED BY STAFF. PATIENT ALSO EVALAUTED BY RT. COMPLETED CHARGE ROUND AT THIS TIME. ANSWERED ALL OF FAMILIES QUESTIONS. NO FURTHER COMMENTS, QUESTIONS, OR CONCERNS. PATIENT SHOWS NO SIGNS OF CHOKING AND IS TALKING WITH FAMILY. NO FURTHER NEEDS NOTED. KANDI SALGADO IN THE ROOM. CALL LIGHT IN REACH.
--- NOTE | 2017-12-12 19:15 | NUR ---
SHIFT REPORT RECEIVED. PATIENT HAD AN EPISODE OF REPORTED CHOKING ON HER DINNER. BOTH DAY AND MAJOR GENERAL CHARGE NURSES IN ROOM. RT CONTACTED TO ASSESS. FAMILY AT BEDSIDE. PATIENT'S O2 SAT 98%, SHE IS ABLE TO TALK. FREQUENT COUGHING. SHE IS UPRIGHT IN THE RECLINER. APPEARS TO BE MOVING AIR, BUT STRUGGLING.
--- NOTE | 2017-12-12 19:30 | NUR ---
RT IN ROOM TO ASSESS. BELIEVES PATIENT HAS CLEARED HER AIRWAY. NO SUCTIONING REQUIRED. O2 SAT WNL. PATIENT SITTING UPRIGHT IN RECLINER. FAMILY IN ROOM.
--- NOTE | 2017-12-12 19:54 | NUR ---
PATIENT'S SON'S GIRLFRIEND HAD QUESTIONS ABOUT IF FAMILY SHOULD BE PRESENT THROUGHOUT THE NIGHT TO HELP THE PATIENT. EXPLAINED THAT THE STAFF CAN PROVIDE FOR PATIENT'S SAFETY AND HER NEEDS. IF FAMILY WOULD LIKE TO STAY THEY ARE ENCOURAGED TO COME AND GO THEY FEEL APPROPRIATE. ALL QUESTIONS ANSWERED. FAMILY AGREES THEY WANT TO BE PRESENT MORE OFTEN. THEY ARE IN THE ROOM AT THIS TIME. PATIENT BACK INTO BED. HOB ELEVATED.
--- NOTE | 2017-12-12 21:10 | NUR ---
PATIENTS EVENING MEDICATIONS GIVEN PER ORDER. PATIENT ALLOWED STAFF TO OPEN MEDICATIONS FOR HER. PATIENT DENIES ANY PAIN. PATIENT IS ABLE TO STATE HER , AND THE YEAR. PATIENT REMAINS UNAWARE OF HER SURROUNDINGS, AND NOT ABLE TO STATE WHEY SHE IS IN THE HOSPITAL. PATIENT IS ABLE TO STATE ALL OF HRE FAMILY MEMBERS NAMES IN THE ROOM. PATIENT DENIES ANY NEEDS CALL LIGHT IN REACH. AND BED ALARM IS ON FOR SAFETY. AT THE BEDSIDE.
--- NOTE | 2017-12-12 21:45 | NUR ---
PATIENT ASSESSMENT COMPLETED. PATIENT IS DROSWEY BUT ANSWERS QUESTIONS. SHE IS CONFUSED TO ALL EXCPET HERSELF AND . LUNGS ARE COARSE. PATIENT ON 3L NC. HOB ELEVATED. CONGESTED COUGH. PATIENT DENIES PAIN. IV SITE WNL. BED ALARM ON. CALL LIGHT IN REACH.
--- NOTE | 2017-12-12 23:07 | NUR ---
PATIENT DENIES TOILETING NEEDS. STATES SHE IS WARM ENOUGH AND COMFORTABLE. FAMILY HAS LEFT FOR THE NIGHT. BED ALARM ON.
--- NOTE | 2017-12-12 23:58 | NUR ---
PATIENT STARTED TO GET RESTLESS IN BED. PATIENT ASSISTED TO THE BSC. PATIENT WAS ABLE TO TO TRANSFER WITHOUT ASSISTANCE. PATIENT WAS ABLE TO VOID. PATIENT WAS NOT ABLE TO STATE THAT SHE WAS IN THE HOSPITAL. PATIENT WAS ABLE TO STATE SHE HAD PNA AFTER SHE WAS TOLD SHE WAS IN THE HOSPITAL. PATIENT WAS ABLE TO STATE YEAR. PATIENT IS NOW BACK IN BED RESTING. PATIENT RMEAINS ON 1L VIA NC. PATIENTS BED ALARM IS ON FOR SAFETY. CALL LIGHT IN REACH.
--- NOTE | 2017-12-13 01:50 | NUR ---
PATIENT IS SITTING UPRIGHT IN THE BED AND HAS REMOVED HER COVERS. SHE DENIES TOILETING NEEDS AND STATES SHE DOESN'T NEED ANYTHING. STAFF HAS BEEN KEEPING CLOSE EYE ON PATIENT AND HER BED ALARM IS ON.
--- NOTE | 2017-12-13 03:04 | NUR ---
PATIENT SLOWLY ATTEMPTING TO GET OUT OF BED. ATTEMPTED TO REDIRECT HER INTO HER BED, WHICH SHE REFUSED. OFFERED TO ASSIST HER TO THE RECLINER, SHE REFUSED. ASSESSED TOILETING NEEDS, SHE DECLINED. MENTAL HEALTH THERAPIST IN ROOM TO ASSIST. PATIENT SITTING AT EDGE OF BED.
--- NOTE | 2017-12-13 05:00 | NUR ---
PATIENT STOOL UP FROM THE BED WITHOUT ASSISTANCE, BED ALARM ALERTED STAFF. SBA WITH PATIENT TO THE RECLINER. WARM BLANKET AND APPLE CIDER PROVIDED. CHAIR ALARM ON. ENCOURAGED PATIENT TO PLACE NC BACK IN PLACE. PATIENT ASKED FOR PAPER AND A PEN WHICH WERE GIVEN TO HER.
--- NOTE | 2017-12-13 05:50 | NUR ---
PATIENT DID NOT SLEEP MUCH LAST NIGHT. MOST OF THE NIGHT SHE WAS SITTING UP IN THE BED AND WOULD OCCATIONALLY APPEAR TO BE SLEEPING. SHE HAS BEEN ORIENTED AT TIMES, BUT THEN WILL HAVE IRRATIONAL THINKING AT OTHERS. PATIENT WAS COMPLIANT WITH CHILD ADOLESCENT CARE. SHE HAS A PERSISTENT COUGH AND SOUNDS CONGESTED. LUNGS ARE COARSE THROUGHOUT. O2 SAT >90% ON 3L NC. BED/CHAIR ALARM.
--- NOTE | 2017-12-13 06:33 | NUR ---
IV ABX AND MORNING MEDS PROVIDED WITH ASSIST OF INDIVIDUAL PENSION CONSULTANT. PATIENT UP TO THE BATHROOM AND THEN INTO BED. SHE APPEARS TIRED AND IS COMPLIANT WITH CARE. O2 TITRATED TO 1L NC. CHRYSTAL IS AGREEABLE TO WEARING NC AT THIS TIME. LAB IN ROOM TO DRAW, PATIENT AGREES.
--- NOTE | 2017-12-13 07:49 | NUR ---
RECEIVED REPORT FROM PATIENT INSURANCE CLERK RN. PT IS IN BED TRYING TO GET UP. ELEVATED HOB, BED ALARM IN PLACE. PT APPEARS TO HAVE FALLEN BACK ASLEEP. SL IN LEFT FOREARM. PT IS CONFUSED. REORIENTED WELL THIS TIME. 1L O2 NC. PT IS VISIBLE FROM NURSING STATION.
--- NOTE | 2017-12-13 08:03 | NUR ---
BEDSIDE SHIFT REPORT RECEIVED FROM KANDI SALGADO. PATIENT ADJUSTED IN BED FOR COMFORT. PATIENT RESTING QUIETLY NOW. VISITOR ARRIVED AT 0800. CEFEPIME INFUSING CONCURRENTLY WITH LR INTO LEFT FOREARM IV. TELEVISION ON. NO NEEDS AT THIS TIME. 1L [address]. BED ALARM ON.
--- NOTE | 2017-12-13 08:34 | NUR ---
PT 80% ON ROOM AIR. 1L 02 NC PLACED. UNABLE TO SATURATE ABOVE 88%. 2L [address] NC [address] PLACE NOW. 93% AFTER 1 MINUTE.
--- NOTE | 2017-12-13 09:55 | NUR ---
pt working with physical therapy at this time.
--- NOTE | 2017-12-13 11:21 | NUR ---
PT ROOM TIDIED. PATIENT SITTING UP IN RECLINER SLEEPING. PATIENT RECLINED SLIGHTLY AND FEET RAISED. 1L [address]ACE. BELONGINGS WITHIN REACH. LINENS STRAIGHTENED. CALL LIGHT WITHIN REACH. TWO TAG CHAIR ALARMS IN PLACE.
--- NOTE | 2017-12-13 11:30 | NUR ---
SALINE LOCKED PATIENT AFTER ANTIBIOTIC FINISHED INFUSING. PATIENT STILL SLEEPING SITTING UP IN RECLINER WITH FEET ELEVATED.
--- NOTE | 2017-12-13 12:24 | NUR ---
0834 note documented under Yvette Romero RN in error. This RN performed O2 titration trial this morning.
--- NOTE | 2017-12-13 14:34 | NUR ---
PT BEHAVIORS APPROPRIATE TODAY. PLEASANT AND COOPERATIVE. VSS. A-FIB NOTED DURING VITAL SIGNS. PT RESTING WITH EYES CLOSED IN RECLINER. CHAIR ALARM ON. TWO FAMILY MEMBERS SITTING ON COUCH IN ROOM.
--- NOTE | 2017-12-13 14:39 | NUR ---
PT'S VS AND I&O'S TAKEN AND DOCUMENTED. PT IS SLEEPING IN THE CHAIR, FAMILY STATES NO NEEDS AT THIS TIME. FRESH ICE WATER GIVEN AND CALL LIGHT IS IN REACH.
--- NOTE | 2017-12-13 16:03 | NUR ---
PT SET OFF CHAIR ALARM. STOOD UP FROM RECLINER. STAFF IMMEDIATELY CAME TO ASSIST HER. SBA TO BATHROOM. HAD BOWEL MOVEMENT. PT BACK TO RECLINER NOW. LEAD SCIENTIST ORDERED DINNER FOR PATIENT.
--- NOTE | 2017-12-13 17:38 | NUR ---
Supratherapeutic INR probably due to poor oral intake. Have been giving reduced doses. Will hold tonight with INR = 3.2
--- NOTE | 2017-12-13 18:17 | NUR ---
PT EATTING DINNER. DOING WELL
--- NOTE | 2017-12-13 18:18 | NUR ---
PLEASANT DEMEANOR THROUGHOUT DAY. NO PARANOIA. DISORIENTED AT TIMES. LASIX AND MUCINEX GIVEN X1. URINATING WELL. DRIBBLES SOMETIMES. BOWEL MOVEMENT TODAY. HX A-FIB. 1L 02 NC. TITRATE IF ABLE. CEFEPIME IV. S/L.
--- NOTE | 2017-12-13 19:57 | NUR ---
ROUNDED CHARGE. PATIENT IS RESTING IN RECLINER. FAMILY IN ROOM NO NEEDS NOTED. NO NEEDS NOTED. CALL LIGHT IN REACH.
--- NOTE | 2017-12-13 21:00 | NUR ---
PATIENT IS RESTING IN RECLINER VISITING WITH OLGA. PATIENT APPEARS IN GOOD SPIRITS. PATIENT ABLE TO STATE MONTH, YEAR, PLACE, TOWN, AND WHY SHE IS HERE. PATIENT DENIES ANY NEEDS. CALL LIGHT IN [facility].
--- NOTE | 2017-12-13 22:30 | NUR ---
PATIENT ASSESMENT COMPLETED. PATIENTS EVENING MEDICATIONS GIVEN PER ORDER. PATIENT ALLOWED STAFF TO OPEN HER MEDICATIONS. PATIENT REMAINS OREINETED. PATIENT IS IN BED RESTING. PATIENTS FAMILY REMAINS AT THE BEDSIDE. CALL LIGHT IN REACH. NO FURTHER NEEDS NOTED.
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
--- NOTE | 2017-12-14 00:41 | NUR ---
PATIENT IS RESTING IN RECLINER. PATIENT NODS ON AND OFF. PATIENT CONTINUES TO DENY ANY NEEDS. PATIENT IS ON RA. PATIENT SPOT CHECKED ON OXYGEN. PATIENT IS 95% ON RA. PATIENT DENIES ANY NEEDS. CALL LIGHT IN REACH. CHAIR ALARM X2.
--- NOTE | 2017-12-14 01:32 | NUR ---
PATIENT ASSISTED TO THE RESTROOM A SBA. PATIENT TOLERATING ACTIVITY WELL. PATIENT WAS ABLE TP VOID. PATIENT IS AAOX3. PATEINT IS NOW IN BED RESTING. PATIENTS OXYGEN CHECKED, AND WNL. PATIENTS BED ALARM IS ON FOR SAFETY. CALL LIGHT IN REACH.
--- NOTE | 2017-12-14 03:42 | NUR ---
PATIENT USED CALL LIGHT TO ALERT STAFF THAT SHE NEEDED TO USE THE RESTROOM. PATIENT ASSISTED TO THE RESTROOM A SBA. PATIENT WAS ABLE TO VOID AND WAS SLIGHTLY INCONTINENT. PATIENT IS NOW BACK IN BED RESTING. WARM BLANKET GIVEN PER REQUEST. NO NEEDS NOTED. CALL LIGHT IN REACH. BED ALARM ON FOR SAFETY.
--- NOTE | 2017-12-14 04:35 | NUR ---
PATIENT CALLED AND REQUESTED SOMETHING TO EAT. PATIENT GIVEN A SNACK OF CRACKERS AND PUDDING. PATIENT DENIES ANY FURTHER NEEDS. CALL LIGHT IN REACH AND BED ALARM ON FOR SAFETY. PATIENT REMAINS AAOX3.
--- NOTE | 2017-12-14 05:02 | NUR ---
PATIENT RESTED ON AND OFF THROUGHOUT THE SHIFT. PATIENT WAS AGITATED AT BEGINNNING OF SHIFT WHEN FAMILY LEFT AND COULD NOT GO WITH THEM. PATIENT HAS BEEN AAOX3 AND ABLE TO ANSWER ALL QUESTIONS. PATIENT USED CALL LIGHT APPROPRIATELY FOR THE LATER PART OF THE SHIFT. PATIENT IS A SBA AND IS STEADY ON HER FEET. PATIENT IS SL AN IV FLUSHES WELL. PATIENT IS ON AN ADA DIET AND TOLERATING WELL, NO NAUSEA NOTED. PATIENT HAS BEEN ON RA. PATIENT HAS CHAIR OR BED ALARM ON FOR SAFETY. PATIENT HAS SINUS DRAINAGE. PATIENT ALSO HAS A PRODUCTIVE COUGH THAT IS PRODUCING A MINIMAL AMOUNT OF PHLEGM. PATIENT HAS BEE COMPLIANT WITH TAKING ALL OF HER MEDICATIONS.
--- NOTE | 2017-12-14 06:14 | NUR ---
PATIENTS MORNING MEDICAITONS GIVEN PER ORDER. PATIENT IS RESTING IN BED. PATIENT ALLOWED LAB TO DRAW BLOOD WITH NO ISSUES. PATIENT IS AAOX3. PATIENT DENIES ANY NEEDS. PATIENTS VITALS TAKEN AND RECORDED. BED ALARM REMAINS ON FOR SAFETY AND CALL LIGHT IN REACH.
--- NOTE | 2017-12-14 07:39 | NUR ---
PATIENT IN BED WITH RN IN ROOM.
--- NOTE | 2017-12-14 07:51 | NUR ---
BEDSIDE SHIFT REPORT RECEIVED FROM ORI SALGADO. PATIENT AWAKE SITTING UP IN BED. REPORTS NEED TO VOID. REPORTED NAUSEA WHEN SITTING AT EDGE OF BED. ZOFRAN GIVEN. PATIENT UP TO VOID AND IN RECLINER NOW. ABX INFUSING INTO LW IV. CALL LIGHT WITHIN REACH. COOPERATIVE WITH CARE.
--- NOTE | 2017-12-14 08:43 | NUR ---
PATIENT SITTING UP IN CHAIR. HANDS AND FACE WASHED. PATIENT WOULD LIKE TO BRUSH TEETH AND SHOWER AFTER BREAKFAST. BRUSH GIVEN TO BRUSH HER HAIR. FRESH ICE WATER GIVEN. CALL BUTTON IN REACH. NO OTHER NEEDS AT THIS TIME.
--- NOTE | 2017-12-14 09:00 | NUR ---
TALKED WITH THE PT ABOUT WHAT O2 COMPANY THAT SHE WOULD PREFER FOR ME TO ORDER HER O2 FROM AND SHE STATED THAT SHE DIDN'T KNOW, BUT HER FAMILY WALKED IN ABOUT THAT TIME AND THEY SAID TO GO WITH [facility].
--- NOTE | 2017-12-14 09:05 | NUR ---
PT SITTING UP IN RECLINER EATING BREAKFAST NOW. PLEASANT DEMEANOR. CONVERSATIONAL AND COOPERATIVE. FEET ELEVATED.
[2017-12-14] MEDS ORDERED: BACTRIM DS TAB1 EACH PO (09:42)
--- NOTE | 2017-12-14 10:40 | NUR ---
WALKED PATIENT IN [place] WITH JAME, RESP THERAPIST, TO QUALIFY FOR HOME O2. 88% ON 1L O2 VIA NC WHEN AMBULATING AT LOWEST SATURATION. FAMILY IN ROOM NOW. PATIENT SITTING UP IN RECLINER. EXPECT DISCHARGE HOME TODAY.
--- NOTE | 2017-12-14 10:52 | NUR ---
PATIENT SITTING UP IN RECLINER. FAMILY IN ROOM VISITING. PATIENT RESTING WITH EYES CLOSED. DIFFICULTY GETTING BLOOD PRESSURE, NOTIFIED AND GOT ASSISTANCE FROM RN. CHAIR ALARM ON. FRESH WATER AT BEDSIDE. CALL LIGHT IN REACH. NO OTHER NEEDS AT THIS TIME.
--- NOTE | 2017-12-14 12:57 | NUR ---
PT SITTING IN CHAIR, FAMILY WITH HER, WAITING DC ORDERS. PT SOMEWHAT ALOOF, A TAD SARCASTIC. FAMILY VERY PLEASANT, EXTENDED A BLESSING AND WILL BE AVAILABLE IF NEEDED
--- NOTE | 2017-12-14 13:28 | NUR ---
FAXED ORDER, RT [facility], ER NOTES, H AND P, PROG NOTES TO [facility]. CALLED AND SPOKE WITH ELIZABET AND SHE SAID SHE WOULD WORK ON IT AND GET IT DELIVERED TO THE PT WITHIN THE HOUR.
--- NOTE | 2018-02-19 10:54 | NUR ---
RECIEVED FAX FROM [facility] REGARDING MEDICARE CMN FORM FOR DR LOAIZA TO SIGN. DR LOAIZA SIGNED THEM AND THEY WERE FAXED BACK TO [facility] IN [place] AT [phone].
== END 2017-12-14 12:40 | disposition home or self-care (01) | DRG 177 ==
LOC: ED 13:23 → MS 17:08
PROVIDERS: ADMIT Internal Medicine
DX: J15.1 Pneumonia due to Pseudomonas (principal); J96.01 Acute respiratory failure with hypoxia; Z99.81 Dependence on supplemental oxygen; I48.0 Paroxysmal atrial fibrillation; I10 Essential (primary) hypertension; Z79.01 Long term (current) use of anticoagulants; E03.9 Hypothyroidism, unspecified; E11.9 Type 2 diabetes mellitus without complications; Z79.84 Long term (current) use of oral hypoglycemic drugs; Z90.710 Acquired absence of both cervix and uterus
CPT/HCPCS: 36415; 36600; 71045; 80048; 80053; 81001; 82803; 83605; 83735; 83880; 84484; 85025; 85610; 87040; 87070; 87077; 87186; 87205; 87502; 93005; 93010; 94640; 94668; 94761; 97110; 97116; 97162; J0456; J0692; J0696; J2405; J7120

== ENCOUNTER 2019-09-16 10:04 | Inpatient (IN) | payer MEDICARE, OTHER ==
[~2019-09-16] VITALS: Ht 170.2 cm; Wt 68.0 kg
--- OUTSIDE RECORDS SUMMARY | ~2019-09-16 | XMS | Encounter Summary ---
Demographics + + + | Address | [address] | | | [place] [address] | + + + | Home Phone | | + + + | Preferred Language | Unknown | + + + | Marital Status | | + + + | Sikhism Affiliation | 1027 | + + + | Race | Unknown | + + + | Ethnic Group | Unknown | + + + Author + + + | Author | [facility] | | | and [place] | + + + | Organization | [facility] | | | and [place] | + + + | Address | Unknown | + + + | Phone | Unavailable | + + + Support + + +---------+ + | Name | Relationship | Address | Phone | + + +---------+ + | Riya Del Rio | ECON | Unknown | | + + +---------+ + | Leah Ralph | ECON | Unknown | | + + +---------+ + Care Team Providers + +------+ + | Care Product Manufacturing Professional Name | Role | Phone | + +------+ + | Silva Castillo | PCP | | | PA | | | + +------+ + Reason for Visit + + + | Reason | Comments | + + + | Labs Only | Collected 05/18/2019 | + + + Encounter Details +--------+ + + + + | Date | Type | Department | Care Team | Description | +--------+ + + + + | 05/25/ | Documentati | [facility] | Rosenda Carpenter, | Labs Only (Collected | | 2019 | on | [facility] | [facility] | 05/18/2019) | | | | [address] | | | | | | [place], [place] | | | | | | [address] | | | | | | [phone] | | | +--------+ + + + + Social History + +-------+ +--------+------+ | Tobacco Use | Types | Packs/Day | Years | Date | | | | | Used | | + +-------+ +--------+------+ | Never Smoker | | | | | + +-------+ +--------+------+ + +---+---+---+ | Smokeless Tobacco: | | | | | Never Used | | | | + +---+---+---+ + + + | Sex Assigned at | Date Recorded | | | | + + + | Not on file | | + + + + + + + | Job Start Date | Occupation | Industry | + + + + | Not on file | Not on file | Not on file | + + + + + + + + | Travel History | Travel Start | Travel End | + + + + + + | No recent travel history available. | + + documented as of this encounter Plan of Treatment +--------+---------+ + + + | Date | Type | Specialty | Care Team | Description | +--------+---------+ + + + | 11/21/ | Office | Cardiology | Bette Helms ANP | | | 2019 | Visit | | [address] | | | | | | [place] | | | | | | [address] | | | | | | | | +--------+---------+ + + + documented as of this encounter Visit Diagnoses Not on filedocumented in this encounter"
--- OUTSIDE RECORDS SUMMARY | ~2019-09-16 | XMS | Clinical Summary ---
Demographics + + + | Address | [address] | | | [place] [address] | + + + | Home Phone | | + + + | Preferred Language | Unknown | + + + | Marital Status | | + + + | Yazdanism Affiliation | 1027 | + + + | Race | Unknown | + + + | Ethnic Group | Unknown | + + + Author + + + | Author | [facility] | | | and [place] | + + + | Organization | [facility] | | | and [...] Team Providers + +------+ + | Care Aviation Survival Technician Name | Role | Phone | + +------+ + | No, Physician | PCP | Unavailable | + +------+ + Allergies + + + + + + | Active Allergy | Reactions | Severity | Noted | Comments | | | | | Date | | + + + + + + | Codeine | Nausea Only | Low | 07/29/20 | Nausea | | | | | 16 | | + + + + + + | Indapamide | Other (See Comments) | Medium | 07/02/20 | Clarence poorly, no | | | | | 18 | energy | + + + + + + Medications + + + +---------+------+------+-------+ | Medication | Sig | Dispensed | Refills | Star | End | Statu | | | | | | t | Date | s | | | | | | Date | | | + + + +---------+------+------+-------+ | metFORMIN | Take 500 mg by mouth | | 0 | 12/0 | | Activ | | (GLUCOPHAGE) 500 mg | Before eavning | | | /20 | | e | | tablet | meal. | | | 13 | | | + + + +---------+------+------+-------+ | warfarin | Take 2.5 mg by mouth | | 0 | 11/0 | | Activ | | (COUMADIN) 2.5 mg | daily. 2.5mg daily | | | / | | e | | tablet | except Fridays; 5mg | | | 16 | | | + + + +---------+------+------+-------+ | magnesium oxide | TAKE ONE TABLET BY | 90 | 3 | 05/2 | | Activ | | (MAG-OX) 400 mg | MOUTH EVERY DAY | tablet | | 06/10 | | e | | tablet | | | | 19 | | | + + + +---------+------+------+-------+ | lisinopril | Take 1 tablet by | 90 | 1 | 08/0 | 08/0 | Activ | | (PRINIVIL, ZESTRIL) | mouth nightly. | tablet | | / | 420 | e | | 10 mg tablet | | | | 19 | 20 | | + + + +---------+------+------+-------+ | | Take 1 tablet by | 90 | 3 | 08/2 | | Activ | | hydroCHLOROthiazide | mouth Daily. | tablet | | 2/20 | | e | | (HYDRODIURIL) 12.5 | | | | 19 | | | | MG tablet | | | | | | | + + + +---------+------+------+-------+ | dilTIAZem | Take 1 tablet by | 60 | 1 | 08/2 | | Activ | | (CARDIZEM) 30 mg | mouth 2 times daily. | tablet | | 2/20 | | e | | tablet | X 2 weeks then go | | | 19 | | | | | back to prn | | | | | | + + + +---------+------+------+-------+ | potassium chloride | Take 1 tablet by | 180 | 0 | 10/3 | | Activ | | (KLOR-CON) 10 MEQ | mouth 2 times daily. | tablet | | 1/20 | | e | | ER tablet | | | | 19 | | | + + + +---------+------+------+-------+ | amiodarone | Take 1 tablet by | 90 | 3 | 12/0 | 12/0 | Activ | | (PACERONE) 200 mg | mouth Daily (with | tablet | | /20 | 320 | e | | tablet | dinner). For 3 | | | 19 | 20 | | | | months, then | | | | | | | | decrease to 200 mg | | | | | | | | daily | | | | | | + + + +---------+------+------+-------+ | levothyroxine | Take 1 tablet by | 90 | 2 | 12/0 | | Activ | | (SYNTHROID) 100 mcg | mouth every morning | tablet | | 20 | | e | | tabletIndications: | (before breakfast). | | | 19 | | | | Atrial fibrillation, | | | | | | | | unspecified type | | | | | | | | ([facility]) | | | | | | | + + + +---------+------+------+-------+ | levothyroxine | TAKE 1 TABLET BY | 90 | 3 | 05/2 | 12/0 | Disco | | (SYNTHROID) 88 mcg | MOUTH EVERY MORNING | tablet | | 06/10 | 4/20 | ntinu | | tablet | BEFORE BREAKFAST | | | 19 | 19 | ed | + + + +---------+------+------+-------+ | amiodarone | Take 1 tablet by | 30 | 11 | 08/ | 12/0 | Disco | | (PACERONE) 400 MG | mouth Daily. For 3 | tablet | | /20 | 01/08 | ntinu | | tablet | months, then | | | 19 | 19 | ed | | | decrease to 200 mg | | | | | | | | daily | | | | | | + + + +---------+------+------+-------+ Active Problems + + + | Problem | Noted Date | + + + | Encounter for monitoring amiodarone therapy | 05/12/2019 | + + + | Encounter for monitoring diuretic therapy | 05/12/2019 | + + + | Acquired hypothyroidism | 04/01/2018 | + + + | Risk factors for obstructive sleep apnea | 04/01/2018 | + + + | Orthostatic dizziness | 06/10/2017 | + + + + + | Overview: Recent symptoms seem consistent with orthostasis. | | Reduction of lisinopril to 10 mg once nightly and | | hydrochlorothiazide from 25 mg to 12.5 mg daily. She will keep a | | blood pressure log and will review this next week with Nilam Latif. | | Again would avoid vasodilators and this patient. Would tolerate | | a higher sitting blood pressure. 12/14/2018 Improvement in | | symptoms since Lisinopril and HCTZ were lowered. | + + + + + | Pulmonary hypertension | 03/19/2017 | + + + + + | Overview: With echo on 06/09/16. PA systolic pressures were | | in the mid 60s. I strongly encouraged her to get a sleep study | | since she may have sleep apnea that is causing this. 06/10/2017 | | Again, encouraged sleep study. 11/09/2017 Again, encouraged | | sleep study. | |11/09/2017 | | Again, encouraged sleep study. | + + + + + | Paroxysmal atrial fibrillation | 07/29/2016 | + + + + + | Overview: She's had 3 episodes of atrial fibrillation within | | the past 10 years that have resulted in a hospital admission. | | The last one was in May 2016. Usually converts within | | 30-60 minutes. Heart rates are usually in the 120 bpm range when | | in A. fib. Associated symptoms include shortness of breath, | | dizziness, weakness, and diaphoresis. She's been on atenolol 50 | | mg per day with, diminished energy since May 2016. Her | | blood pressure runs on the low side. Her chads 2 vasc score is | | 4. She is anticoagulated with warfarin. An echocardiogram from | | May 2016 revealed mild MR, mild LAE, mild to moderate TR | | with normal RA, mild PI, and significant pulmonary hypertension | | with an estimated RV systolic pressure of 62-67 mmHg. The LV | | systolic function was normal and there was grade 2 diastolic | | dysfunction. The wall thickness of the left ventricle was within | | normal limits. Coronary angiography was normal in 2003. I | | recommended stopping amlodipine and atenolol and starting sotalol | | 40 mg twice a day for 1 week followed by 80 mg in the morning | | and 40 mg in the evening if her heart rate is above 60 bpm. Try | | to get the dose up to 80 mg twice a day, if her sinus node | | permits that. If she doesn't tolerate sotalol, I'd recommend | | amiodarone. Have recommended a sleep study. I have not | | recommended an ablation because of her age ( risks increase above | | age 82), and the fact that she has significant pulmonary | | hypertension makes it less likely that sinus rhythm will be | | maintained long-term. _06/10/2017_ She did not tolerate sotalol 80 | | mg twice daily but is amenable to a trial of sotalol 40 mg twice | | daily. I have again encouraged her to undergo sleep study given | | the implications for sleep apnea and the impact on worsening | | atrial fibrillation. Continue potassium and magnesium | | supplementation. We will reassess electrolytes next week. Thyroid | | function in February was within normal limits. She is avoiding | | caffeine. If she has recurrent episode of atrial fibrillation on | | sotalol 40 mg twice daily, would recommend transitioning to | | amiodarone, instead. _11/09/2017_ Continue sotalol 40 mg twice | | daily. She is also taking diltiazem 30 mg as needed for | | breakthrough palpitations occurring less than once per month. She | | is very happy on this regimen. _07/22/2018_ Continue sotalol 40 | | mg twice daily. Her QTC is too prolonged to increase the dose any | | further. She is also taking diltiazem 30 mg as needed for | | breakthrough palpitations occurring less than once per week. She | | is currently happy on this regimen. Other option would be | | Amiodarone, which would also be reasonable given her age. We | | discussed the possibility of amiodarone therapy if her | | breakthrough palpitations continue to worsen. She was amenable to | | changing if they did, but preferred to stay on low-dose Sotalol | | for now. _12/14/2018_ Continue sotalol 40 mg twice daily. Her QTC | | is too prolonged to increase the dose any further. She is also | | taking diltiazem 30 mg as needed for breakthrough palpitations | | occurring less than once per week. She is currently happy on this | | regimen. At my last visit, we discussed the possibility of | | amiodarone therapy if her breakthrough palpitations continue to | | worsen but she does not wish to pursue this medication. 7 day | | event monitor. Check labwork. QTC today was 453 _03/16/2019_ | | Breakthrough AFIB on Sotalol. Changed to Amiodarone. Loading with | | 400mg daily until May 22, then lowering to 200mg daily. QTC | | today was 415. 07/20/2019Mahnaz has again had confusion regarding | | her medication regimen and has only been taking Amiodarone 200mg | | daily. I have asked her to increase to 400mg daily and return to | | see me in 1 month, at which time.08/24/2019Lower her dose of | | Amiodarone to 200mg daily. Reviewed labs from July, continue | | Amiodarone lab monitoring every 6 months. | + + + + + | Hypertension goal BP (blood pressure) < 140/80 | 07/29/2016 | + + + + + | Overview: Her blood pressure has actually been running low. | | I recommended stopping amlodipine since that may be contributing | | to her edema and orthostatic hypotension. Switch from atenolol | | to sotalol which may give more antiarrhythmic benefit. Start | | with 40 mg twice a day and increase that if she tolerates. Try | | and avoid vasodilators and diuretics if at all possible given her | | orthostatic lightheadedness 08/24/2019BP mildly elevated today | | but has been running 140s at home. | + + + + + | Type 2 diabetes mellitus without complication, without long-term | 07/29/2016 | | current use of insulin | | + + + Encounters +--------+ + + + + | Date | Type | Specialty | Care Team | Description | +--------+ + + + + | 08/24/ | Office | Cardiology | Bette Helms ANP | Atrial fibrillation, | | 2018 | Visit | | | unspecified type | | | | | | (HCC) (Primary Dx); | | | | | | Paroxysmal atrial | | | | | | fibrillation (HCC); | | | | | | Hypertension goal BP | | | | | | (blood pressure) < | | | | | | 140/80 | +--------+ + + + + | 08/23/ | Telephone | Cardiology | Bette Helms ANP | Other | | 2018 | | | | | +--------+ + + + + | 08/23/ | Telephone | Cardiology | Karson Bo, | Lab Results | | 2018 | | | RN | | +--------+ + + + + | 08/12/ | Documentati | Cardiology | Natalie Mancera, | | | 2018 | on | | Manager Cardiac Cath | | +--------+ + + + + | 07/21/ | Refill | Cardiology | Nilam Perkins | Medication Refill | | 2019 | | | QUINTON Latif | | +--------+ + + + + | 07/20/ | Office | Cardiology | Bette Helms ANP | Paroxysmal atrial | | 2018 | Visit | | | fibrillation (HCC) | | | | | | (Primary Dx); | | | | | | Hypertension goal BP | | | | | | (blood pressure) < | | | | | | 140/80 | +--------+ + + + + from Last 3 Months Family History + + +------+ + | Medical History | Relation | Name | Comments | + + +------+ + | Heart disease | Father | | | + + +------+ + | Heart disease | Maternal | | | | | Grandfath | | | | | er | | | + + +------+ + | Stroke | Maternal | | | | | Grandfath | | | | | er | | | + + +------+ + | Hypertension | Mother | | | + + +------+ + | Stroke | Mother | | | + + +------+ + | Stroke | Paternal | | | | | Grandfath | | | | | er | | | + + +------+ + + +------+ + + | Relation | Name | Status | Comments | + +------+ + + | Father | | | CAD, Dementia | | | | (Age | | | | | 62) | | + +------+ + + | Father | | | | + +------+ + + | Maternal Grandfather | | | MT,CVA | | | | (Age | | | | | 52) | | + +------+ + + | Maternal Grandfather | | | | + +------+ + + | Maternal Grandmother | | | gallbladder problems | | | | (Age | | | | | 83) | | + +------+ + + | Mother | | | HTN,CVA, bladder complications | | | | (Age | | | | | 86) | | + +------+ + + | Mother | | | | + +------+ + + | Paternal Grandfather | | | | + +------+ + + | Paternal Grandfather | | | | + +------+ + + | Paternal Grandmother | | | | + +------+ + + Social History + +-------+ +--------+------+ [...] recent travel history available. | + + Last Filed Vital Signs + + + + + | Vital Sign | Reading | Time Taken | Comments | + + + + + | Blood Pressure | 160/64 | 08/24/2019 12:46 PM | | | | | PST | | + + + + + | Pulse | 82 | 08/24/2019 12:46 PM | | | | | PST | | + + + + + | Temperature | - | - | | + + + + + | Respiratory Rate | 20 | 10/04/2018 1:07 PM | | | | | PST | | + + + + + | Oxygen Saturation | 94% | 08/24/2019 12:46 PM | | | | | PST | | + + + + + | Inhaled Oxygen | - | - | | | Concentration | | | | + + + + + | Weight | 65.1 kg (143 lb 9.6 | 08/24/2019 12:46 PM | | | | oz) | PST | | + + + + + | Height | 170.2 cm (5' 7") | 08/24/2019 12:46 PM | | | | | PST | | + + + + + | Body Mass Index | 22.49 | 08/24/2019 12:46 PM | | | | | PST | | + + + + + Plan of Treatment +--------+---------+ + + + | Date | Type | Specialty | Care Team | Description | +--------+---------+ + + + | 11/21/ | Office | Cardiology | Bette Helms ANP | | | 2019 | Visit | | [address] | | | | | | [place] | | | | | | [address] | | | | | | | | +--------+---------+ + + + + + + + + | Health Maintenance | Due Date | Last Done | Comments | + + + + + | Vaccine: | | | | | Dtap/Tdap/Td (1 - | 4 | | | | Tdap) | | | | + + + + + | Diabetic Eye Exam | | | | | | 1 | | | + + + + + | Diabetic Foot Exam | | | | | | 1 | | | + + + + + | Hemoglobin A1c | | | | | Screening | 1 | | | + + + + + | Vaccine: Zoster (1 | | | | | of 2) | 3 | | | + + + + + | Vaccine: | | | | | Pneumococcal 65+ (1 | 8 | | | | of 2 - PCV13) | | | | + + + + + | Adult Annual | | | | | Wellness Visit | 9 | | | + + + + + | Vaccine: Influenza | | | | | (#1) | 9 | | | + + + + + Procedures + +--------+ + + + | Procedure Name | Priori | Date/Time | Associated Diagnosis | Comments | | | ty | | | | + +--------+ + + + | LABS - EXTERNAL SCAN | | 08/30/2019 | | Results for this | | | | 12:00 AM | | procedure are in the | | | | PST | | results section. | + +--------+ + + + | ECG 12 LEAD | Routin | 08/24/2019 | Atrial | Results for this | | | e | 12:54 PM | fibrillation, | procedure are in the | | | | PST | unspecified type | results section. | | | | | (HCC) | | + +--------+ + + + | EXTERNAL LAB: CBC | Routin | 07/26/2019 | | Results for this | | | e | 9:46 AM | | procedure are in the | | | | PST | | results section. | + +--------+ + + + | T4, FREE | Routin | 07/26/2019 | | Results for this | | | e | 9:46 AM | | procedure are in the | | | | PST | | results section. | + +--------+ + + + | TSH | Routin | 07/26/2019 | | Results for this | | | e | 9:46 AM | | procedure are in the | | | | PST | | results section. | + +--------+ + + + | COMPREHENSIVE | Routin | 07/26/2019 | | Results for this | | METABOLIC PANEL | e | 9:46 AM | | procedure are in the | | | | PST | | results section. | + +--------+ + + + | ECG 12 LEAD | Routin | 07/20/2019 | Paroxysmal atrial | Results for this | | | e | 2:00 PM | fibrillation (HCC) | procedure are in the | | | | PDT | | results section. | + +--------+ + + + from Last 3 Months Results LABS - EXTERNAL SCAN (08/30/2019 12:00 AM PST) + + + | Narrative | Performed At | + + + | Ordered by an | | | unspecified provider. | | + + + ECG 12 lead (08/24/2019 12:54 PM PST)Only the most recent of 2 results within the time long od is included. + + + + + + | Component | Value | Ref Range | Performed | Pathologist | | | | | At | Signature | + + + + + + | VENTRICULAR | 72 | BPM | [facility] | | | RATE EKG | | | | | + + + + + + | ATRIAL RATE | 72 | BPM | [facility] | | + + + + + + | P-R | 164 | ms | [facility] | | | INTERVAL | | | | | + + + + + + | QRS | 84 | ms | [facility] | | | DURATION | | | | | + + + + + + | Q-T | 420 | ms | [facility] | | | INTERVAL | | | | | + + + + + + | Q-T | 459 | ms | [facility] | | | INTERVAL | | | | | | (CORRECTED) | | | | | + + + + + + | P WAVE AXIS | 71 | degrees | [facility] | | + + + + + + | QRS AXIS | 54 | degrees | [facility] | | + + + + + + | T AXIS | 92 | degrees | [facility] | | + + + + + + | INTERPRETAT | Please refer to | | [facility] | | | ION TEXT | Providers office visit | | | | | | note for Providers | | | | | | Interpretation.Confirmed | | | | | | by [facility] Read Only, | | | | | | [facility] Stephanie ([id number]), | | | | | | image editor Yousif Carrillo | | | | | | ([id number]) on 08/24/2019 | | | | | | 2:34:05 PM | | | | + + + + + + + + | Specimen | + + | | + + + + + | Narrative | Performed At | + + + | | | + + + + +---------+ + + | Performing | Address | City/State/Zipcode | Phone Number | | Organization | | | | + +---------+ + + | [facility] | | | | + +---------+ + + External Lab: MICHELLE (07/26/2019 9:46 AM PST) + + + + + + | Component | Value | Ref Range | Performed | Pathologist | | | | | At | Signature | + + + + + + | WBC | 4.4 (A) | 4.5 - 11.0 K/ul | REFERENCE | | | | | | LAB | | | | | | [facility] | | + + + + + + | RBC COUNT. | 4.22 | 3.8 - 5.1 M/ul | REFERENCE | | | | | | LAB | | | | | | [facility] | | + + + + + + | Hemoglobin | 13.3 | 12.0 - 16.0 | REFERENCE | | | | | g/dl | LAB | | | | | | [facility] | | + + + + + + | Hematocrit, | 40.2 | 35 - 45 % | REFERENCE | | | BF | | | LAB | | | | | | [facility] | | + + + + + + | MCV | 95.1 | 81 - 99 fl | REFERENCE | | | | | | LAB | | | | | | [facility] | | + + + + + + | RDW | 13.8 | 12.0 - 16.0 % | REFERENCE | | | | | | LAB | | | | | | [facility] | | + + + + + + | MCH | 32 | 27 - 33 pg | REFERENCE | | | | | | LAB | | | | | | [facility] | | + + + + + + | MCHC | 33 | 30 - 36 g/dl | REFERENCE | | | | | | LAB | | | | | | [facility] | | + + + + + + | Platelet | 231 | 140 - 440 K/ul | REFERENCE | | | Count | | | LAB | | | Plasma | | | [facility] | | + + + + + + | NEUTROPHILS | 61.1 | 39 - 80 % | REFERENCE | | | BL | | | LAB | | | | | | [facility] | | + + + + + + | % | 23.2 (A) | 24 - 44 % | REFERENCE | | | Lymphocytes | | | LAB | | | | | | [facility] | | + + + + + + | Monocyte % | 14.1 (A) | 0 - 12 % | REFERENCE | | | | | | LAB | | | | | | [facility] | | + + + + + + | Eosinophils | 1.0 | 0 - 6 % | REFERENCE | | | % | | | LAB | | | | | | [facility] | | + + + + + + | Basophils % | 0.6 | 0 - 2 % | REFERENCE | | | | | | LAB | | | | | | [facility] | | + + + + + + + + | Specimen | + + | Blood | + + + + + + + | Performing | Address | City/State/Zipcode | Phone Number | | Organization | | | | + + + + + | REFERENCE LAB | [facility] [facility] | [place] [address] | [phone] | | [facility] | | | | + + + + + TSH (07/26/2019 9:46 AM PST) + + + + + + | Component | Value | Ref Range | Performed | Pathologist | | | | | At | Signature | + + + + + + | TSH, | 5.03 (A) | 0.270 - 4.20 | REFERENCE | | | External | | uIU/ml | LAB | | | | | | [facility] | | | | | | [facility] | | + + + + + + + + | Specimen | + + | Blood | + + + + + + + | Performing | Address | City/State/Zipcode | Phone Number | | Organization | | | | + + + + + | REFERENCE LAB | [address] | [place] [address] | [phone] | | [facility] | | | | + + + + + T4, Free (07/26/2019 9:46 AM PST) + + + + + + | Component | Value | Ref Range | Performed | Pathologist | | | | | At | Signature | + + + + + + | FREE T4 | 1.94 (A) | 0.71 - 1.7 | REFERENCE | | | (REF) | | | LAB | | | | | | [facility] | | + + + + + + + + | Specimen | + + | Blood | + + + + + + + | Performing | Address | City/State/Zipcode | Phone Number | | Organization | | | | + + + + + | REFERENCE LAB | [address] [facility] | [place] [address] | [phone] | | [facility] | | | | + + + + + Comprehensive Metabolic Panel (07/26/2019 9:46 AM PST) + + + + + + | Component | Value | Ref Range | Performed | Pathologist | | | | | At | Signature | + + + + + + | Sodium | 142 | 132 - 143 meq/L | REFERENCE | | | | | | LAB | | | | | | [facility] | | | | | | [facility] | | + + + + + + | K | 3.8 | 3.6 - 5.1 meq/L | REFERENCE | | | | | | LAB | | | | | | [facility] | | | | | | [facility] | | + + + + + + | Chloride | 101 | 95 - 112 meq/L | REFERENCE | | | | | | LAB | | | | | | [facility] | | | | | | [facility] | | + + + + + + | Carbon | 33 (A) | 19 - 31 meq/L | REFERENCE | | | dioxide | | | LAB | | | | | | [facility] | | | | | | [facility] | | + + + + + + | Anion Gap | 11.8 | 7 - 21 | REFERENCE | | | | | | LAB | | | | | | [facility] | | | | | | [facility] | | + + + + + + | Glucose | 85 | 70 - 100 mg/dL | REFERENCE | | | | | | LAB | | | | | | [facility] | | | | | | [facility] | | + + + + + + | BUN | 24 (A) | 6 - 23 mg/dL | REFERENCE | | | | | | LAB | | | | | | [facility] | | | | | | [facility] | | + + + + + + | Creatine, | 0.71 | 0.70 - 1.11 | REFERENCE | | | Serum | | mg/dL | LAB | | | | | | [facility] | | | | | | [facility] | | + + + + + + | GFR | 78 | ml/min | REFERENCE | | | ESTIMATE | | | LAB | | | (REF) | | | [facility] | | | | | | [facility] | | + + + + + + | BUN/Creatin | 33.8 (A) | 6.0 - 28.6 | REFERENCE | | | ine Ratio | | | LAB | | | | | | [facility] | | | | | | [facility] | | + + + + + + | Calcium | 9.6 | 8.5 - 10.3 | REFERENCE | | | | | mg/dL | LAB | | | | | | [facility] | | | | | | [facility] | | + + + + + + | AST | 14 | 13 - 39 U/L | REFERENCE | | | | | | LAB | | | | | | [facility] | | | | | | [facility] | | + + + + + + | ALT | 13 | 7 - 52 U/L | REFERENCE | | | | | | LAB | | | | | | [facility] | | | | | | [facility] | | + + + + + + | Alkaline | 55 | 31 - 130 U/L | REFERENCE | | | Phosphatase | | | LAB | | | | | | [facility] | | | | | | [facility] | | + + + + + + | Bilirubin | 0.7 | 0.0 - 1.2 mg/dL | REFERENCE | | | Total | | | LAB | | | | | | [facility] | | | | | | [facility] | | + + + + + + | Protein, | 6.3 | 6.0 - 8.3 g/dL | REFERENCE | | | Total | | | LAB | | | | | | [facility] | | | | | | [facility] | | + + + + + + | Albumin | 3.7 | 3.5 - 5.0 g/dL | REFERENCE | | | | | | LAB | | | | | | [facility] | | | | | | [facility] | | + + + + + + | Globulin | 2.6 | 1.8 - 3.5 g/dL | REFERENCE | | | | | | LAB | | | | | | [facility] | | | | | | [facility] | | + + + + + + | A/G Ratio | 1.4 | 1.1 - 2.4 | REFERENCE | | | | | | LAB | | | | | | [facility] | | | | | | [facility] | | + + + + + + + + | Specimen | + + | Blood | + + + + + + + | Performing | Address | City/State/Zipcode | Phone Number | | Organization | | | | + + + + + | REFERENCE LAB | [address] [place] [address] | [place] [address] | [phone] | | [facility] | | | | + + + + + from Last 3 Months Insurance + +--------+ +--------+ + +--------+ | Payer | Benefi | Subscriber | Effect | Phone | Address | Type | | | t Plan | ID | pat | | | | | | / | | Dates | | | | | | Group | | | | | | + +--------+ +--------+ + +--------+ | MEDICARE | MEDICA | [id number] | 03/21/19 | [phone] | | Medica | | | RE | | 98-Pre | 5 | | re | | | PART A | | sent | | | | | | AND B | | | | | | + +--------+ +--------+ + +--------+ | MODA | MODA | [id number] | 09/21/19 | [phone] | [address] | Indemn | | | HEALTH | | 19-Pre | [phone] | [phone] | ity | | | MDCR | | sent | | [place], | | | | [place] | | | | [place] [address] | | + +--------+ +--------+ + +--------+ + +--------+ +--------+ + + | Guarantor Name | Accoun | Relation to | Date | Phone | Billing Address | | | t Type | Patient | of | | | | | | | | | | + +--------+ +--------+ + + | Gaby Del Rio | Person | Self [birth year] | [address] | | | al/Fam | | 1931 | [phone] | [place] | | | [place] | | | [address] (Home) | [address] | + +--------+ +--------+ + + Advance Directives + + + + + | Type | Date Recorded | Patient | Explanation | | | | Hvac Lead | | + + + + + | Power of | | | | | Stencil Inspector | | | | + + + + + | Advance | | | | | Directive | | | | + + + + +
--- OUTSIDE RECORDS SUMMARY | ~2019-09-16 | XMS | Encounter Summary ---
Demographics + + + | Address | [address] | | | [place] [address] | + + + | Home Phone | | + + + | Preferred Language | Unknown | + + + | Marital Status | | + + + | Anglican Affiliation | 1027 | + + + | Race | Unknown | + + + | Ethnic Group | Unknown | + + + Author + + + | Author | [facility] | | | and [place] | + + + | Organization | [facility] | | | and [...] Team Providers + +------+ + | Care Alternative Education Teacher Name | Role | Phone | + +------+ + | Silva Castillo | PCP | | | PA | | | + +------+ + Encounter Details +--------+ + + + + | Date | Type | Department | Care Team | Description | +--------+ + + + + | 04/09/ | Orders Only | [facility] | Bette Helms ANP | | | 2016 | | CARDIOLOGY [place] | [address] | | | | | [address] | [place], [place] | | | | | [place], [place] | [address] | | | | | [address] | | | | | | [phone] | | | +--------+ + + + + Social History + +-------+ +--------+------+ | Tobacco Use | Types | Packs/Day | Years | Date | | | | | Used | | + +-------+ +--------+------+ | Never Assessed | | | | | + +-------+ +--------+------+ + + + | Sex Assigned at [...] 11/21/ | Office | Cardiology | Bette Helms, ANP | | | 2019 | Visit | | [address] | | | | | | [place], [place] | | | | | | [address] | | | | | | | | +--------+---------+ + + + documented as of this encounter Procedures + +--------+ + + + | Procedure Name | Priori | Date/Time | Associated Diagnosis | Comments | | | ty | | | | + +--------+ + + + | BASIC METABOLIC | Routin | 04/09/2017 | | Results for this | | PANEL | e | 1:13 PM | | procedure are in the | | | | PDT | | results section. | + +--------+ + + + documented in this encounter Results Basic Metabolic Panel (04/09/2017 1:13 PM PDT) + + + + + + | Component | Value | Ref Range | Performed | Pathologist | | | | | At | Signature | + + + + + + | Glucose, | 78 | 70 - 100 mg/dL | EXTERNAL | | | Fasting | | | LAB | | + + + + + + | BUN | 29 (A) | 6 - 23 mg/dL | EXTERNAL | | | | | | LAB | | + + + + + + | Creatinine | 0.58 (A) | 0.70 - 1.11 | EXTERNAL | | | | | mg/dL | LAB | | + + + + + + | BUN/Creatin | 50.0 (A) | 6.0 - 28.6 | EXTERNAL | | | ine Ratio | | | LAB | | + + + + + + | Calcium | 9.7 | 8.4 - 10.2 | EXTERNAL | | | | | mg/dL | LAB | | + + + + + + | Na | 141 | 132 - 143 | EXTERNAL | | | | | mmol/L | LAB | | + + + + + + | K | 4.3 | 3.6 - 5.1 | EXTERNAL | | | | | mmol/L | LAB | | + + + + + + | Cl | 104 | 95 - 112 mmol/L | EXTERNAL | | | | | | LAB | | + + + + + + | CO2 | 29 | 19 - 31 mmol/L | EXTERNAL | | | | | | LAB | | + + + + + + | Anion Gap | 12.3 | 7 - 21 mmol/L | EXTERNAL | | | | | | LAB | | + + + + + + | Estimated | 99 | 60 mg/dL | EXTERNAL | | | GFR | | | LAB | | + + + + + + + + | Specimen | + + | Blood specimen | | (specimen) | + + + +---------+ + + | Performing | Address | City/State/Zipcode | Phone Number | | Organization | | | | + +---------+ + + | EXTERNAL LAB | | | | + +---------+ + + documented in this encounter Visit Diagnoses Not on filedocumented in this encounter"
--- OUTSIDE RECORDS SUMMARY | ~2019-09-16 | XMS | Encounter Summary ---
Demographics + + + | Address | [address] | | | [place] [address] | + + + | Home Phone | | + + + | Preferred Language | Unknown | + + + | Marital Status | | + + + | Confucianist Affiliation | 1027 | + + + | Race | Unknown | + + + | Ethnic Group | Unknown | + + + Author + + + | Author | [facility] | | | and [place] | + + + | Organization | [facility] | | | and [...] Team Providers + +------+ + | Care Nut Roaster Name | Role | Phone | + +------+ + | Silva Castillo | PCP | | | PA | | | + +------+ + Encounter Details +--------+ + + + + | Date | Type | Department | Care Team | Description | +--------+ + + + + | 02/23/ | Orders Only | [facility] | Nilam Perkins | | | 2018 | | [address] | [address] | | | | | [address] | [place] | | | | | [place], [place] | [place] [address] | | | | | [address] | [phone] | | | | | [phone] | | | +--------+ + + + [...] | Office | Cardiology | Bette Helms, TIA | | | 2019 | Visit | | [address] | | | | | | [place] | | | | | | [address] | | | | | | | | +--------+---------+ + + + documented as of this encounter Procedures + +--------+ + + + | Procedure Name | Priori | Date/Time | Associated Diagnosis | Comments | | | ty | | | | + +--------+ + + + | ECHO INTERPRETATION | Routin | 02/23/2018 | | Results for this | | OF OUTSIDE FILMS | e | 3:26 PM | | procedure are in the | | | | PDT | | results section. | + +--------+ + + + documented in this encounter Results ECHO Interpretation of Outside Films (02/23/2018 3:26 PM PDT) + + | Specimen | + + | | + + + + + | Impressions | Performed At | + + + | 1. Overall left ventricular systolic function is normal with, an EF | | | between 65 - 70 %. 2. The right ventricle is normal in size and | | | function. 3. There is mild aortic regurgitation. 4. There are several | | | changes noted in comparison to the previous echocardiographic study, | | | done 06/09/16, as noted below. The severe pulmonary hypertension | | | noted at that time has resolved. | | + + + + + + | Narrative | Performed At | + + + | Patient Name: Gaby Del Rio Date of : 1930 | | | Performing Physician: SAM SWEENEY MD | | | | | | INDICATIONS HTN, Afib CONCLUSIONS 1. | | | Overall left ventricular systolic function is normal with, an EF | | | between 65 - 70 %. 2. The right ventricle is normal in size and | | | function. 3. There is mild aortic regurgitation. 4. There are several | | | changes noted in comparison to the previous echocardiographic study, | | | done 06/09/16, as noted below. The severe pulmonary hypertension | | | noted at that time has resolved. FINDINGS -------- ECG rhythm: | | | Sinus rhythm. Study: A 2-dimensional transthoracic echocardiogram | | | with m-mode, spectral and color flow Doppler was perfomed. Study: | | | This was a technically adequate study. Left Ventricle: Overall left | | | ventricular systolic function is normal with, an EF between 65 - 70 %. | | | Left Ventricle: The left ventricle cavity size is normal. Left | | | Ventricle: Left ventricular wall thickness is normal. Left Ventricle: | | | No regional wall motion abnormalities. Left Ventricle: Assessment of | | | diastolic function was indeterminate. Right Ventricle: The right | | | ventricle is normal in size and function. Left Atrium: The left | | | atrium is normal in size. It was reported to be mildly enlarged on | | | the previous study. Right Atrium: The right atrium is normal in size. | | | Aortic Valve: The aortic valve is trileaflet and appears | | | structurally normal. Aortic Valve: There is mild aortic regurgitation | | | which was not present on the previous study. Aortic Valve: There is | | | no evidence of aortic stenosis. Mitral Valve: Mild mitral | | | regurgitation is present, unchanged from the prior study. Mitral | | | Valve: No evidence of MVP. Mitral Valve: Mild mitral annular | | | calcification present. Tricuspid Valve: The tricuspid valve appears | | | structurally normal. Tricuspid Valve: Trace tricuspid regurgitation | | | is present, decreased from mild-moderate TR on the prior study. | | | Tricuspid Valve: There is no evidence of pulmonary hypertension. | | | Tricuspid Valve: The right ventricular systolic pressure (pulmonary | | | artery systolic pressure), as measured by Doppler, is 18.04mmHg, | | | greatly decreased from the RVSP of 62 - 67 mm Hg measured on the prior | | | exam. Pulmonic Valve: The pulmonic valve is normal. Pulmonic Valve: | | | Mild pulmonic regurgitation. Pericardium: There is no pericardial | | | effusion. IVC/Hepatic Veins: The IVC is normal size (1.5-2.5cm) and | | | collapses >50% with sniff, consistent with central venous pressures of | | | 5-10mmHg. Mass: Incidental finding of hypoechoic circular area noted | | | in liver measuring 4.4cmx5.8cm, consistent with the large hepatic | | | cyst noted on the prior exam. Thrombus: No clot visualized Septum: | | | No ASD observed. Septum: No VSD observed. MEASUREMENTS | | | Ao asc: 3.09 cm Ao sinus: 3.34 cm IVC: 1.23 | | | cm EDV(Teich): 84.34 ml IVSd: 1.14 cm LVIDd: 4.32 cm | | | LVPWd: 1.04 cm LVOT Area: 4.23 cm2 LVOT Diam: 2.32 cm %FS: | | | 33.19 % EF(Teich): 62.09 % ESV(Teich): 31.97 ml LVIDs: | | | 2.89 cm SV(Teich): 52.37 ml RVIDd: 3.01 cm LVEF MOD A2C: | | | 63.57 % SV MOD A2C: 37.95 ml LVEF MOD A4C: 76.54 % SV MOD | | | A4C: 26.70 ml EF Biplane: 68.19 % LVEDV MOD BP: 50.05 ml | | | LVESV MOD BP: 15.92 ml LVEDV MOD A2C: 59.70 ml LVLd A2C: | | | 6.37 cm LVEDV MOD A4C: 34.89 ml LVLd A4C: 5.27 cm LVESV MOD | | | A2C: 21.74 ml LVLs A2C: 5.37 cm LVESV MOD A4C: 8.18 ml | | | LVLs A4C: 3.70 cm LAESV(A-L): 42.20 ml LAESV Index (A-L): | | | 23.31 ml/m2 LAAs A2C: 16.28 cm2 LAESV A-L A2C: 39.29 ml LALs | | | A2C: 5.72 cm LAAs A4C: 15.54 cm2 LAESV A-L A4C: 40.28 ml | | | LALs A4C: 5.09 cm RAAs: 16.74 cm2 RAESV A-L: 50.04 ml | | | RAESV MOD: 47.77 ml RALs: 4.75 cm Ao Diam: 2.66 cm LA | | | Diam: 4.18 cm LA/Ao: 1.56 TAPSE: 1.70 cm AV maxP.14 | | | mmHg AV meanP.80 mmHg AV Vmax: 1.01 m/s AV Vmean: | | | 0.80 m/s AV VTI: 24.28 cm SHANNON Vmax: 2.71 cm2 SHANNON (VTI): | | | 2.33 cm2 AVAI Vmax: 0.00 cm2/m2 AVAI (VTI): 0.00 cm2/m2 LVOT | | | maxP.70 mmHg LVOT meanP.99 mmHg LVSI Dopp: 31.32 | | | ml/m2 LVSV Dopp: 56.70 ml LVOT Vmax: 0.65 m/s LVOT Vmean: | | | 0.48 m/s LVOT VTI: 13.39 cm MV A Ariel: 0.45 m/s MV DecT: | | | 208.40 ms MV E Ariel: 0.89 m/s MV E/A Ratio: 1.97 MV PHT: | | | 60.43 ms MVA By PHT: 3.64 cm2 Septal e': 0.04 m/s Septal | | | E/e': 20.81 Lateral e': 0.08 m/s Lateral E/e': 10.28 PV | | | maxP.44 mmHg PV Vmax: 0.78 m/s RAP: 5 mmHg RVSP: | | | 18.03 mmHg TR maxP.03 mmHg TR Vmax: 1.80 m/s | | | Floriculture Professor: Authenticated by: SAM SWEENEY MD Report Date/Time: | | | 02-24-2018 8:15:35 | | + + + + + | Procedure Note | + + | Adal Greenberg Conversion - 05/12/2019 3:57 PM PDT Patient Name: Bruna Del Rio | | of : 1930 Performing Physician: SAM SWEENEY, | | MD INDICATIONS H | | [place], Afib CONCLUSIONS 1. Overall left ventricular systolic function is normal | | with, an EF between 65 - 70 %.2. The right ventricle is normal in size and function.3. | | There is mild aortic regurgitation. 4. There are several changes noted in comparison to | | the previous echocardiographic study, done 06/09/16, as noted below. The severe | | pulmonary hypertension noted at that time has resolved. FINDINGS--------ECG rhythm: | | Sinus rhythm.Study: A 2-dimensional transthoracic echocardiogram with m-mode, spectral | | and color flow Doppler was perfomed.Study: This was a technically adequate study.Left | | Ventricle: Overall left ventricular systolic function is normal with, an EF between 65 - | | 70 %.Left Ventricle: The left ventricle cavity size is normal.Left Ventricle: Left | | ventricular wall thickness is normal.Left Ventricle: No regional wall motion | | abnormalities.Left Ventricle: Assessment of diastolic function was indeterminate.Right | | Ventricle: The right ventricle is normal in size and function.Left Atrium: The left | | atrium is normal in size. It was reported to be mildly enlarged on the previous | | study.Right Atrium: The right atrium is normal in size.Aortic Valve: The aortic valve is | | trileaflet and appears structurally normal.Aortic Valve: There is mild aortic | | regurgitation which was not present on the previous study.Aortic Valve: There is no | | evidence of aortic stenosis.Mitral Valve: Mild mitral regurgitation is present, | | unchanged from the prior study.Mitral Valve: No evidence of MVP.Mitral Valve: Mild | | mitral annular calcification present.Tricuspid Valve: The tricuspid valve appears | | structurally normal.Tricuspid Valve: Trace tricuspid regurgitation is present, decreased | | from mild-moderate TR on the prior study.Tricuspid Valve: There is no evidence of | | pulmonary hypertension.Tricuspid Valve: The right ventricular systolic pressure | | (pulmonary artery systolic pressure), as measured by Doppler, is 18.04mmHg, greatly | | decreased from the RVSP of 62 - 67 mm Hg measured on the prior exam.Pulmonic Valve: The | | pulmonic valve is normal.Pulmonic Valve: Mild pulmonic regurgitation.Pericardium: There | | is no pericardial effusion.IVC/Hepatic Veins: The IVC is normal size (1.5-2.5cm) and | | collapses >50% with sniff, consistent with central venous pressures of 5-10mmHg.Mass: | | Incidental finding of hypoechoic circular area noted in liver measuring 4.4cmx5.8cm, | | consistent with the large hepatic cyst noted on the prior exam.Thrombus: No clot | | visualizedSeptum: No ASD observed.Septum: No VSD observed. MEASUREMENTS Ao | | asc: 3.09 cmAo sinus: 3.34 cmIVC: 1.23 cmEDV(Teich): 84.34 mlIVSd: 1.14 | | cmLVIDd: 4.32 cmLVPWd: 1.04 cmLVOT Area: 4.23 nx6LDIS Diam: 2.32 cm%FS: 33.19 | | %EF(Teich): 62.09 %ESV(Teich): 31.97 mlLVIDs: 2.89 cmSV(Teich): 52.37 mlRVIDd: | | 3.01 cmLVEF MOD A2C: 63.57 %SV MOD A2C: 37.95 mlLVEF MOD A4C: 76.54 %SV MOD A4C: | | 26.70 mlEF Biplane: 68.19 %LVEDV MOD BP: 50.05 mlLVESV MOD BP: 15.92 mlLVEDV MOD | | A2C: 59.70 mlLVLd A2C: 6.37 cmLVEDV MOD A4C: 34.89 mlLVLd A4C: 5.27 cmLVESV MOD | | A2C: 21.74 mlLVLs A2C: 5.37 cmLVESV MOD A4C: 8.18 mlLVLs A4C: 3.70 | | cmLAESV(A-L): 42.20 mlLAESV Index (A-L): 23.31 ml/m2LAAs A2C: 16.28 [id number] A-L | | A2C: 39.29 mlLALs A2C: 5.72 cmLAAs A4C: 15.54 [id number] A-L A4C: 40.28 mlLALs | | A4C: 5.09 cmRAAs: 16.74 [id number] A-L: 50.04 mlRAESV MOD: 47.77 mlRALs: 4.75 | | cmAo Diam: 2.66 cmLA Diam: 4.18 cmLA/Ao: 1.56TAPSE: 1.70 cmAV maxP.14 | | mmHgAV meanP.80 mmHgAV Vmax: 1.01 m/Lala Vmean: 0.80 m/Lala VTI: 24.28 cmAVA | | Vmax: 2.71 cm2AVA (VTI): 2.33 [id number] Vmax: 0.00 cm2/m2AVAI (VTI): 0.00 | | cm2/m2LVOT maxP.70 mmHgLVOT meanP.99 mmHgLVSI Dopp: 31.32 ml/m2LVSV Dopp: | | 56.70 mlLVOT Vmax: 0.65 m/sLVOT Vmean: 0.48 m/sLVOT VTI: 13.39 cmMV A Ariel: | | 0.45 m/sMV DecT: 208.40 msMV E Ariel: 0.89 m/sMV E/A Ratio: 1.97MV PHT: 60.43 | | msMVA By PHT: 3.64 qb0Ommdak e': 0.04 m/sSeptal E/e': 20.81Lateral e': 0.08 | | m/sLateral E/e': 10.28PV maxP.44 mmHgPV Vmax: 0.78 m/sRAP: 5 mmHgRVSP: | | 18.03 mmHgTR maxP.03 mmHgTR Vmax: 1.80 m/s Floriculture Professor:Authenticated by: | | Marizol PARMAR Date/Time: 02-24-2018 8:15:35 IMPRESSION: 1. Overall left | | ventricular systolic function is normal with, an EF between 65 - 70 %.2. The right | | ventricle is normal in size and function.3. There is mild aortic regurgitation. 4. There | | are several changes noted in comparison to the previous echocardiographic study, done | | 06/09/16, as noted below. The severe pulmonary hypertension noted at that time has | | resolved. | |LVPWd: 1.04 cm | |LVOT Area: 4.23 cm2 | |LVOT Diam: 2.32 cm | |%FS: 33.19 % | |EF(Teich): 62.09 % | |ESV(Teich): 31.97 ml | |LVIDs: 2.89 cm | |SV(Teich): 52.37 ml | |RVIDd: 3.01 cm | |LVEF MOD A2C: 63.57 % | |SV MOD A2C: 37.95 ml | |LVEF MOD A4C: 76.54 % | |SV MOD A4C: 26.70 ml | |EF Biplane: 68.19 % | |LVEDV MOD BP: 50.05 ml | |LVESV MOD BP: 15.92 ml | |LVEDV MOD A2C: 59.70 ml | |LVLd A2C: 6.37 cm | |LVEDV MOD A4C: 34.89 ml | |LVLd A4C: 5.27 cm | |LVESV MOD A2C: 21.74 ml | |LVLs A2C: 5.37 cm | |LVESV MOD A4C: 8.18 ml | |LVLs A4C: 3.70 cm | |LAESV(A-L): 42.20 ml | |LAESV Index (A-L): 23.31 ml/m2 | |LAAs A2C: 16.28 cm2 | |LAESV A-L A2C: 39.29 ml | |LALs A2C: 5.72 cm | |LAAs A4C: 15.54 cm2 | |LAESV A-L A4C: 40.28 ml | |LALs A4C: 5.09 cm | |RAAs: 16.74 cm2 | |RAESV A-L: 50.04 ml | |RAESV MOD: 47.77 ml | |RALs: 4.75 cm | |Ao Diam: 2.66 cm | |LA Diam: 4.18 cm | |LA/Ao: 1.56 | |TAPSE: 1.70 cm | |AV maxP.14 mmHg | |AV meanP.80 mmHg | |AV Vmax: 1.01 m/s | |AV Vmean: 0.80 m/s | |AV VTI: 24.28 cm | |SHANNON Vmax: 2.71 cm2 | |SHANNON (VTI): 2.33 cm2 | |AVAI Vmax: 0.00 cm2/m2 | |AVAI (VTI): 0.00 cm2/m2 | |LVOT maxP.70 mmHg | |LVOT meanP.99 mmHg | |LVSI Dopp: 31.32 ml/m2 | |LVSV Dopp: 56.70 ml | |LVOT Vmax: 0.65 m/s | |LVOT Vmean: 0.48 m/s | |LVOT VTI: 13.39 cm | |MV A Ariel: 0.45 m/s | |MV DecT: 208.40 ms | |MV E Ariel: 0.89 m/s | |MV E/A Ratio: 1.97 | |MV PHT: 60.43 ms | |MVA By PHT: 3.64 cm2 | |Septal e': 0.04 m/s | |Septal E/e': 20.81 | |Lateral e': 0.08 m/s | |Lateral E/e': 10.28 | |PV maxP.44 mmHg | |PV Vmax: 0.78 m/s | |RAP: 5 mmHg | |RVSP: 18.03 mmHg | |TR maxP.03 mmHg | |TR Vmax: 1.80 m/s | | | |Floriculture Professor: | |Authenticated by: SAM SWEENEY MD | |Report Date/Time: 02-24-2018 8:15:35 | | | |IMPRESSION: | |1. Overall left ventricular systolic function is normal with, an EF between 65 - 70 %. | |2. The right ventricle is normal in size and function. | |3. There is mild aortic regurgitation. 4. There are several changes noted in comparison to the previous echocardiographic study, done 06/09/16, as noted below. The severe pulmonary hy pertension noted at that time has resolved. | + + documented in this encounter Visit Diagnoses Not on filedocumented in this encounter"
--- OUTSIDE RECORDS SUMMARY | ~2019-09-16 | XMS | Encounter Summary ---
Demographics + + + | Address | [address] | | | [place] [address] | + + + | Home Phone | | + + + | Preferred Language | Unknown | + + + | Marital Status | | + + + | Temple Affiliation | 1027 | + + + | Race | Unknown | + + + | Ethnic Group | Unknown | + + + Author + + + | Author | [facility] | | | and [place] | + + + | Organization | [facility] | | | [...] Team Providers + +------+ + | Care Substance Abuse Rn Name | Role | Phone | + +------+ + | No, Physician | PCP | Unavailable | + +------+ + Encounter Details +--------+ + + + + | Date | Type | Department | Care Team | Description | +--------+ + + + + | 08/22/ | Orders Only | [facility] | Conversion | | | 2013 | | CONVERSION [address] | Transaction, | | | | [address] | Provider Unknown | | | | | [place], [place] | [phone] | | | | | [address] | | | | | | [phone] | | | +--------+ + + + [...] [place] | | | | | | [address] | | | | | | | | +--------+---------+ + + + documented as of this encounter Visit Diagnoses Not on filedocumented in this encounter"
--- OUTSIDE RECORDS SUMMARY | ~2019-09-16 | XMS | Encounter Summary ---
Demographics + + + | Address | [address] | | | [place] [address] | + + + | Home Phone | | + + + | Preferred Language | Unknown | + + + | Marital Status | | + + + | Roman Catholic Affiliation | 1027 | + + + | Race | Unknown | + + + | Ethnic Group | Unknown | + + + Author + + + | Author | [facility] | | | and [place] | + + + | Organization | [facility] | | | and [...] Team Providers + +------+ + | Care Hospice/Home Health Aide Name | Role | Phone | + +------+ + PCP | Unavailable | + +------+ + Encounter Details +--------+ + + + + | Date | Type | Department | Care Team | Description | +--------+ + + + + | 01/27/ | Hospital | [facility] | | | | 2001 | Encounter | MED CTR XRAY [address] | | | | | [address] | | | | | | [place] [address] | | | | | | [phone] | | | +--------+ + + + [...] | Bette Helms ANP | | | 2020 | Visit | | [address] | | | | | | [place] | | | | | | [address] | | | | | | | | +--------+---------+ + + + documented as of this encounter Visit Diagnoses Not on filedocumented in this encounter"
--- OUTSIDE RECORDS SUMMARY | ~2019-09-16 | XMS | Encounter Summary ---
Demographics + + + | Address | [address] | | | [place] [address] | + + + | Home Phone | | + + + | Preferred Language | Unknown | + + + | Marital Status | | + + + | Adventism Affiliation | 1027 | + + + | Race | Unknown | + + + | Ethnic Group | Unknown | + + + Author + + + | Author | [facility] | | | and [place] | + + + | Organization | [facility] | | | and [place] | + [...] Team Providers + +------+ + | Care Painter Airbrush Name | Role | Phone | + +------+ + | No, Physician | PCP | Unavailable | + +------+ + Reason for Visit + + + | Reason | Comments | + + + | Follow-up | | + + + Encounter Details +--------+---------+ + + + | Date | Type | Department | Care Team | Description | +--------+---------+ + + + | 08/24/ | Office | [facility] | Bette Helms ANP | Atrial fibrillation, | | 2019 | Visit | [facility] [place] | [address] | unspecified type | | | | [address] | [place], [place] | (HCC) (Primary Dx); | | | | [place], [place] | [address] | Paroxysmal atrial | | | | [address] | | fibrillation (HCC); | | | | [phone] | | Hypertension goal BP | | | | | | (blood pressure) < | | | | | | 140/80 | +--------+---------+ + + + Social History + +-------+ [...] + + documented as of this encounter Last Filed Vital Signs + + + [...] + + + | Respiratory Rate | - | - | | + [...] | | + + + + + documented in this encounter Progress Notes Bette Helms ANP - 08/24/2019 1:00 PM PST ELECTROPHYSIOLOGY OUTPATIENT FOLLOW UP PATIENT NAME: Gaby Del Rio : 1930: AGE: 88 y.o. (home) : PRIMARY CARE: No Physician on file Requesting Physician: No referring provider defined for this encounter. Plan SUMMARY OF EP RECOMMENDATIONS Continue Amiodarone, lowering to 200mg daily Due for labs in 6 months Return to EP in 3 months or sooner PRN EK08/24/2019 personally reviewed and interpreted reveals NSR with NSST changes HR 72, KY 164, QRSD 84, QTC 459 EP PROBLEMS ADDRESSED AT TODAY'S VISIT Problem List Hypertension goal BP (blood pressure) < 140/80 Overview Her blood pressure has actually been running low. I recommended stopping amlodipine sinc e that may be contributing to her edema and orthostatic hypotension. Switch from atenolol t o sotalol which may give more antiarrhythmic benefit. Start with 40 mg twice a day and increase that if she tolerates. Try and avoid vasodilators and diuretics if at all possible given her or thostatic lightheadedness 08/24/2019 BP mildly elevated today but has been running 140s at home. Paroxysmal atrial fibrillation Overview She's had 3 episodes of atrial fibrillation within the past 10 years that have resulted i n a hospital admission. The last one was in May 2016. Usually converts within 30-60 minutes. Heart rates are usually in the 120 bpm range when in A. fib. Associated symptoms include s hortness of breath, dizziness, weakness, and diaphoresis. She's been on atenolol 50 mg per day with, diminished energy since May 2016. Her blood pressure runs on the low side. Her cecilia s 2 vasc score is 4. She is anticoagulated with warfarin. An echocardiogram from May 2016 revealed mild MR, mild LAE, mild to moderate TR with normal RA, mild PI, and significant pu lmonary hypertension with an estimated RV systolic pressure of 62-67 mmHg. The LV systolic function was normal and there was grade 2 diastolic dysfunction. The wall thickness of the left ventri parag was within normal limits. Coronary angiography was normal in 2003. I recommended stopp ing amlodipine and atenolol and starting sotalol 40 mg twice a day for 1 week followed by 80 mg in the morning and 40 mg in the evening if her heart rate is above 60 bpm. Try to get the dose up to 80 mg twice a day, if her sinus node permits that. If she doesn't tolerate sotalol, I'd re commend amiodarone. Have recommended a sleep study. I have not recommended an ablation bec ause of her age ( risks increase above age 80), and the fact that she has significant pulmonary hyperte nsion makes it less likely that sinus rhythm will be maintained long-term. _06/10/2017_ She did not tolerate sotalol 80 mg twice daily but is amenable to a trial of sotalol 40 mg twice daily. I have again encouraged her to undergo sleep study given the implications for s leep apnea and the impact on worsening atrial fibrillation. Continue potassium and magnesium supplemen tation. We will reassess electrolytes next week. Thyroid function in February was within normal limits. She is avoiding caffeine. If she has recurrent episode of atrial fibrillation on sotalol 40 mg twice daily, would recommend transitioning to amiodarone, instead. _11/09/2017_ Continue sotalol 40 mg twice daily. She is also taking diltiazem 30 mg as needed for breakt hrough palpitations occurring less than once per month. She is very happy on this regimen. _07/22/2018_ Continue sotalol 40 mg twice daily. Her QTC is too prolonged to increase the dose any furth er. She is also taking diltiazem 30 mg as needed for breakthrough palpitations occurring les s than once per week. She is currently happy on this regimen. Other option would be Amiodarone, which w ould also be reasonable given her age. We discussed the possibility of amiodarone therapy if her breakthrough palpitations continue to worsen. She was amenable to changing if they did, but preferred to stay on low-dose Sotalol for now. _12/14/2018_ Continue sotalol 40 mg twice daily. Her QTC is too prolonged to increase the dose any furth er. She is also taking diltiazem 30 mg as needed for breakthrough palpitations occurring les s than once per week. She is currently happy on this regimen. At my last visit, we discussed the possib ility of amiodarone therapy if her breakthrough palpitations continue to worsen but she does not wish to pursue this medication. 7 day event monitor. Check labwork. QTC today was 453 _03/16/2019_ Breakthrough AFIB on Sotalol. Changed to Amiodarone. Loading with 400mg daily until er 1, then lowering to 200mg daily. QTC today was 415. 07/20/2019 She has again had confusion regarding her medication regimen and has only been taking Amiod arone 200mg daily. I have asked her to increase to 400mg daily and return to see me in Thu, at which time. 08/24/2019 Lower her dose of Amiodarone to 200mg daily. Reviewed labs from July, continue Amiodaro ne lab monitoring every 6 months. COMPREHENSIVE PROBLEM LIST Patient Active Problem List Diagnosis Date Noted Encounter for monitoring amiodarone therapy 05/12/2019 Encounter for monitoring diuretic therapy 05/12/2019 Acquired hypothyroidism 04/01/2018 Risk factors for obstructive sleep apnea 04/01/2018 Orthostatic dizziness 06/10/2017 Note Last Updated: 05/05/2019 Recent symptoms seem consistent with orthostasis. Reduction of lisinopril to 10 mg once n ightly and hydrochlorothiazide from 25 mg to 12.5 mg daily. She will keep a blood pressure l og and will review this next week with Nilam Latif. Again would avoid vasodilators and this patient. Woul d tolerate a higher sitting blood pressure. 12/14/2018 Improvement in symptoms since Lisinopril and HCTZ were lowered. Pulmonary hypertension (HCC) 03/19/2017 Note Last Updated: 05/05/2019 With echo on 06/09/16. PA systolic pressures were in the mid 60s. I strongly encouraged her to get a sleep study since she may have sleep apnea that is causing this. 06/10/2017 Again, encouraged sleep study. 11/09/2017 Again, encouraged sleep study. Paroxysmal atrial fibrillation (HCC) 07/29/2016 Note Last Updated: 08/24/2019 She's had 3 episodes of atrial fibrillation within the past 10 years that have resulted i n a hospital admission. The last one was in May 2016. Usually converts within 30-60 minutes. Heart rates are usually in the 120 bpm range when in A. fib. Associated symptoms include s hortness of breath, dizziness, weakness, and diaphoresis. She's been on atenolol 50 mg per day with, diminished energy since May 2016. Her blood pressure runs on the low side. Her cecilia s 2 vasc score is 4. She is anticoagulated with warfarin. An echocardiogram from May 2016 revealed mild MR, mild LAE, mild to moderate TR with normal RA, mild PI, and significant pu lmonary hypertension with an estimated RV systolic pressure of 62-67 mmHg. The LV systolic function was normal and there was grade 2 diastolic dysfunction. The wall thickness of the left ventri parag was within normal limits. Coronary angiography was normal in 2003. I recommended stopp ing amlodipine and atenolol and starting sotalol 40 mg twice a day for 1 week followed by 80 mg in the morning and 40 mg in the evening if her heart rate is above 60 bpm. Try to get the dose up to 80 mg twice a day, if her sinus node permits that. If she doesn't tolerate sotalol, I'd re commend amiodarone. Have recommended a sleep study. I have not recommended an ablation bec ause of her age ( risks increase above age 80), and the fact that she has significant pulmonary hyperte nsion makes it less likely that sinus rhythm will be maintained long-term. _06/10/2017_ She did not tolerate sotalol 80 mg twice daily but is amenable to a trial of sotalol 40 mg twice daily. I have again encouraged her to undergo sleep study given the implications for s leep apnea and the impact on worsening atrial fibrillation. Continue potassium and magnesium supplemen tation. We will reassess electrolytes next week. Thyroid function in February was within normal limits. She is avoiding caffeine. If she has recurrent episode of atrial fibrillation on sotalol 40 mg twice daily, would recommend transitioning to amiodarone, instead. _11/09/2017_ Continue sotalol 40 mg twice daily. She is also taking diltiazem 30 mg as needed for breakt hrough palpitations occurring less than once per month. She is very happy on this regimen. _07/22/2018_ Continue sotalol 40 mg twice daily. Her QTC is too prolonged to increase the dose any furth er. She is also taking diltiazem 30 mg as needed for breakthrough palpitations occurring les s than once per week. She is currently happy on this regimen. Other option would be Amiodarone, which w ould also be reasonable given her age. We discussed the possibility of amiodarone therapy if her breakthrough palpitations continue to worsen. She was amenable to changing if they did, but preferred to stay on low-dose Sotalol for now. _12/14/2018_ Continue sotalol 40 mg twice daily. Her QTC is too prolonged to increase the dose any furth er. She is also taking diltiazem 30 mg as needed for breakthrough palpitations occurring les s than once per week. She is currently happy on this regimen. At my last visit, we discussed the possib ility of amiodarone therapy if her breakthrough palpitations continue to worsen but she does not wish to pursue this medication. 7 day event monitor. Check labwork. QTC today was 453 _03/16/2019_ Breakthrough AFIB on Sotalol. Changed to Amiodarone. Loading with 400mg daily until er 1, then lowering to 200mg daily. QTC today was 415. 07/20/2019 She has again had confusion regarding her medication regimen and has only been taking Amiod arone 200mg daily. I have asked her to increase to 400mg daily and return to see me in Thu, at which time. 08/24/2019 Lower her dose of Amiodarone to 200mg daily. Reviewed labs from July, continue Amiodaro ne lab monitoring every 6 months. Hypertension goal BP (blood pressure) < 140/80 07/29/2016 Note Last Updated: 08/24/2019 Her blood pressure has actually been running low. I recommended stopping amlodipine sinc e that may be contributing to her edema and orthostatic hypotension. Switch from atenolol t o sotalol which may give more antiarrhythmic benefit. Start with 40 mg twice a day and increase that if she tolerates. Try and avoid vasodilators and diuretics if at all possible given her or thostatic lightheadedness 08/24/2019 BP mildly elevated today but has been running 140s at home. Type 2 diabetes mellitus without complication, without long-term current use of insulin ([facility]) 07/29/2016 HISTORY OF PRESENT ILLNESS This patient presents 08/24/2019 Reporting doing well. No chest pain or palpitations. No sh ortness of breath, PND or orthopnea. No signs or symptoms of bleeding. Compliant with medica tions. She has been having some cold intolerance and worsening fatigue since she started on Amiodarone, some mild hair loss as well. TSH was recently 5.2. We discussed increasing her s ynthroid today and she was amenable to this plan. She has chronic BLE edema, right is much w orse than left. Palpitations have significantly improved on amiodarone, but she is not curre ntly happy with amiodarone given her fatigue. She is willing to trial lowering the dose to 2 00mg daily and seeing if increasing synthroid helps her symptoms. Allergies Allergen Reactions Indapamide Other (See Comments) Peoa poorly, no energy Codeine Nausea Only Nausea Current Medications Current Outpatient Medications: amiodarone (PACERONE) 200 mg tablet, Take 1 tablet by mouth Daily (with dinner). For 3 months, then decrease to 200 mg daily, Disp: 90 tablet, Rfl: 3 dilTIAZem (CARDIZEM) 30 mg tablet, Take 1 tablet by mouth 2 times daily. X 2 weeks the n go back to prn, Disp: 60 tablet, Rfl: 1 hydroCHLOROthiazide (HYDRODIURIL) 12.5 MG tablet, Take 1 tablet by mouth Daily., Disp: 90 tablet, Rfl: 3 levothyroxine (SYNTHROID) 100 mcg tablet, Take 1 tablet by mouth every morning (before breakfast)., Disp: 90 tablet, Rfl: 2 lisinopril (PRINIVIL, ZESTRIL) 10 mg tablet, Take 1 tablet by mouth nightly., Disp: 90 tablet, Rfl: 1 magnesium oxide (MAG-OX) 400 mg tablet, TAKE ONE TABLET BY MOUTH EVERY DAY, Disp: 90 t ablet, Rfl: 3 metFORMIN (GLUCOPHAGE) 500 mg tablet, Take 500 mg by mouth Before eavning meal., Disp: , Rfl: potassium chloride (KLOR-CON) 10 MEQ ER tablet, Take 1 tablet by mouth 2 times daily., Disp: 180 tablet, Rfl: 0 warfarin (COUMADIN) 2.5 mg tablet, Take 2.5 mg by mouth daily. 2.5mg daily except Frid ays; 5mg (Patient taking differently: Take 2.5 mg by mouth. 2.5mg daily), Disp: , Rfl: The past history, social history, family history and problem list were reviewed and update d with changes of any significance. DATA Laboratory values which I reviewed 08/24/2019 are as follows: Lab Results Component Value Date RBC 4.22 07/26/2019 Lab Results Component Value Date NA 142 07/26/2019 NA 141 06/15/2017 K 3.8 07/26/2019 CL 101 07/26/2019 CL 102 06/15/2017 CO2 33 (A) 07/26/2019 ANIONGAP 11.8 07/26/2019 GLUF 96 06/15/2017 BUN 24 (A) 07/26/2019 BCR 33.8 (A) 07/26/2019 EGFR 105 06/15/2017 Lab Results Component Value Date GLUF 96 06/15/2017 No results found for: BNP, TSH, CRP ROS I have personally reviewed and agree with ROS listed by MA gary. All other systems are reviewed and negative. PHYSICAL EXAM BP 160/64 | Pulse 82 | Ht 1.702 m (5' 7") | Wt 65.1 kg (143 lb 9.6 oz) | SpO2 94% | BM I 22.49 kg/m Physical Exam Constitutional: She is oriented to person, place, and time. She appears well-developed and well-nourished. HENT: Head: Normocephalic and atraumatic. Eyes: Pupils are equal, round, and reactive to light. Neck: No JVD present. No thyromegaly present. Cardiovascular: Normal rate and regular rhythm. No murmur heard. Pulmonary/Chest: Effort normal and breath sounds normal. She has no rales. Abdominal: Soft. Bowel sounds are normal. There is no tenderness. Musculoskeletal: General: Edema (BLE, right 2+, lef 1+ to midshin) present. Neurological: She is alert and oriented to person, place, and time. Skin: Skin is warm and dry. Psychiatric: She has a normal mood and affect. Vitals reviewed. TIA Watkins 08/24/2019 2:27 PM *This report has been prepared using a voice recognition system. The report was reviewed f or accuracy, however, sound-alike word errors, addition and/or deletions may occur. If there is any question about this report please contact me. Patient Instructions No notes on file Stephanie Reyes CMA - 08/24/2019 1:00 PM PSTLin JACOBO Note- Electrophysiology Patient ID: Gaby Del Rio is a 88 y.o. female. Review of Systems Constitutional: Positive for malaise/fatigue. Have you ever had a sleep study? (NO) Do you use oxygen? (NO) Do you use CPAP? (NO) Do you snore? (NO) Do you fall asleep for no reason during the day? (YES) Do you stop breathing at night? (NO) Do you feel excessively tired during the day? (NO) documented in this encounter Plan of Treatment +--------+---------+ + + + | Date | Type | Specialty | Care Team | Description | +--------+---------+ + + + | 11/21/ | Office | Cardiology | Bette Helms, ANP | | | 2019 | Visit | | [address] | | | | | | [place] | | | | | | [address] | | | | | | | | +--------+---------+ + + + +------+------+--------+ + + | Name | Type | Priori | Associated Diagnoses | Order Schedule | | | | ty | | | +------+------+--------+ + + | TSH | Lab | Routin | Atrial | Expected: | | | | e | fibrillation, | 09/28/2019, Expires: | | | | | unspecified type | 08/24/2020 | | | | | (HCC) | | +------+------+--------+ + + documented as of this encounter [...] | | + +--------+ + + + documented in this encounter Results LABS - EXTERNAL SCAN (08/30/2019 12:00 AM PST) + + + | Narrative | Performed At | + + + | Ordered by an | | | unspecified provider. | | + + + ECG 12 lead (08/24/2019 12:54 PM PST) + + + + + + [...] | | | | | by [facility] Read Only, | | | | | | [facility] ([id number]), | | | | | | assignment desk editor Yousif Carrillo | | | | | | [id number]) on 08/24/2019 | | | | | [...] + documented in this encounter Visit Diagnoses + + | Diagnosis | + + | Atrial fibrillation, unspecified type (HCC) - Primary | + + | Paroxysmal atrial fibrillation (HCC) Atrial fibrillation | + + | Hypertension goal BP (blood pressure) < 140/80 Unspecified essential hypertension | + + documented in this encounter
--- OUTSIDE RECORDS SUMMARY | ~2019-09-16 | XMS | Encounter Summary ---
Demographics + + + | Address | [address] | | | [place] [address] | + + + | Home Phone | | + + + | Preferred Language | Unknown | + + + | Marital Status | | + + + | Holiness Affiliation | 1027 | + + + | Race | Unknown | + + + | Ethnic Group | Unknown | + + + Author + + + | Author | [facility] | | | and [place] | + + + | Organization | [facility] | | | and [...] Team Providers + +------+ + | Care Tag Maker Name | Role | Phone | + +------+ + | No, Physician | PCP | Unavailable | + +------+ + Encounter Details +--------+ + + + + | Date | Type | Department | Care Team | Description | +--------+ + + + + | 07/01/ | Orders Only | [facility] | Nilam Perkins | | | 2017 | | [facility] [place] | [address] | | | | | [address] | [address] | | | | | [address] | [place] [address] | | | | | [place] | [phone] | | | | | [address] | | | | | | [phone] | | | +--------+ + + + [...] [place] | | | | | | [id number] | | | | | | | | +--------+---------+ + + + documented as of this encounter Visit Diagnoses Not on filedocumented in this encounter"
--- OUTSIDE RECORDS SUMMARY | ~2019-09-16 | XMS | Encounter Summary ---
Demographics + + + | Address | [address] | | | [place] [address] | + + + | Home Phone | | + + + | Preferred Language | Unknown | + + + | Marital Status | | + + + | Zoroastrian Affiliation | 1027 | + + + | Race | Unknown | + + + | Ethnic Group | Unknown | + + + Author + + + | Author | [facility] | | | and [place] | + + + | Organization | [facility] | | | [...] Team Providers + +------+ + | Care Plate Glass Polisher Name | Role | Phone | + +------+ + | No, Physician | PCP | Unavailable | + +------+ + Reason for Visit + + + | Reason | Comments | + + + | Medication Refill | | + + + Encounter Details +--------+--------+ + + + | Date | Type | Department | Care Team | Description | +--------+--------+ + + + | 07/21/ | Refill | [facility] | Nilam Perkins | Medication Refill | | 2019 | | [facility] [place] | [address] | | | | | [address] | [address] | | | | | [address] | [place] [address] | | | | | [place] | [phone] | | | | | [address] | | | | | | [phone] | | | +--------+--------+ + + + Social History + +-------+ [...] [place] | | | | | | [address] | | | | | | | | +--------+---------+ + + + documented as of this encounter Visit Diagnoses Not on filedocumented in this encounter"
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
--- OUTSIDE RECORDS SUMMARY | ~2019-09-16 | XMS | Encounter Summary ---
Demographics + + + | Address | [address] | | | [place] [address] | + + + | Home Phone | | + + + | Preferred Language | Unknown | + + + | Marital Status | | + + + | Druze Affiliation | 1027 | + + + | Race | Unknown | + + + | Ethnic Group | Unknown | + + + Author + + + | Author | [facility] | | | and [place] | + + + | Organization | [facility] | | | [...] Team Providers + +------+ + | Care Manual Lathe Operator Name | Role | Phone | + +------+ + | No, Physician | PCP | Unavailable | + +------+ + Encounter Details +--------+ + + + + | Date | Type | Department | Care Team | Description | +--------+ + + + + | 08// | Orders Only | [facility] | Nilam Perkins | | | 2019 | | CARDIOLOGY [facility]TE | [address] | | | | | [address] | [address] | | | | | [address] | [place] [address] | | | | | [place] | [phone] | | | | | [address] | | | | | | [phone] | | | +--------+ + + + [...] [place] | | | | | | [phone] | | | | | | | | +--------+---------+ + + + documented as of this encounter Visit Diagnoses Not on filedocumented in this encounter"
--- OUTSIDE RECORDS SUMMARY | ~2019-09-16 | XMS | Encounter Summary ---
Demographics + + + | Address | [address] | | | [place] [address] | + + + | Home Phone | | + + + | Preferred Language | Unknown | + + + | Marital Status | | + + + | Jehovah'S Witness Affiliation | 1027 | + + + | Race | Unknown | + + + | Ethnic Group | Unknown | + + + Author + + + | Author | [facility] | | | and [place] | + + + | Organization | [facility] | | | [...] Team Providers + +------+ + | Care Manager Combination Name | Role | Phone | + +------+ + | No, Physician | PCP | Unavailable | + +------+ + Encounter Details +--------+ + + + + | Date | Type | Department | Care Team | Description | +--------+ + + + + | 02/18/ | Orders Only | [facility] | DozierDarrell olmos Richard, | | | 2018 | | CARDIOLOGY RIK Weber MD [address] | | | | | [address] | [place], [place] | | | | | [place], [place] | [address] | | | | | [address] | | | | | | [phone] | | | +--------+ + + + [...] 2019 | Visit | | [address] | | | | | | [place] | | | | | | [id number] | | | | | | | | +--------+---------+ + + + documented as of this encounter Visit Diagnoses Not on filedocumented in this encounter"
--- OUTSIDE RECORDS SUMMARY | ~2019-09-16 | XMS | Encounter Summary ---
Demographics + + + | Address | [address] | | | [place] [address] | + + + | Home Phone | | + + + | Preferred Language | Unknown | + + + | Marital Status | | + + + | Sikh Affiliation | 1027 | + + + | Race | Unknown | + + + | Ethnic Group | Unknown | + + + Author + + + | Author | [facility] | | | and [place] | + + + | Organization | [facility] | | | and [...] Team Providers + +------+ + | Care Chief Relay Tester Name | Role | Phone | + +------+ + | Silva Castillo | PCP | | | PA | | | + +------+ + Encounter Details +--------+ + + + + | Date | Type | Department | Care Team | Description | +--------+ + + + + | 04/09/ | Orders Only | [facility] | Bette Helms ANP | | | 2016 | | CARDIOLOGY [place] | [address] | | | | | [address] | [place], [place] | | | | | [place], [place] | [address] | | | | | [address] | | | | | | [phone] | | | +--------+ + + + [...] | | | | | [place], [place] | | | | | | [address] | | | | | | | [...]
--- OUTSIDE RECORDS SUMMARY | ~2019-09-16 | XMS | Encounter Summary ---
Demographics + + + | Address | [address] | | | [place] [address] | + + + | Home Phone | | + + + | Preferred Language | Unknown | + + + | Marital Status | | + + + | Voodoo Affiliation | 1027 | + + + [...] Team Providers + +------+ + | Care Histology Tech Name | Role | Phone | + +------+ + | No, Physician | PCP | Unavailable | + +------+ + Reason for Visit + + + | Reason | Comments | + + + | Lab Results | | + + + Encounter Details +--------+ + + + + | Date | Type | Department | Care Team | Description | +--------+ + + + + | 08/23/ | Telephone | [facility] | Karson Bo, | Lab Results | | 2019 | | CARDIOLOGY [place] | RN | | | | | [address] | | | | | | [place], [place] | | | | | | [address] | | | | | | [phone] | | | +--------+ + + + [...] [place] | | | | | | [address] | | | | | | | | +--------+---------+ + + + documented as of this encounter Visit Diagnoses Not on filedocumented in this encounter"
--- OUTSIDE RECORDS SUMMARY | ~2019-09-16 | XMS | Encounter Summary ---
Demographics + + + | Address | [address] | | | [place] [address] | + + + | Home Phone | | + + + | Preferred Language | Unknown | + + + | Marital Status | | + + + | Zoroastrianism Affiliation | 1027 | + + + | Race | Unknown | + + + | Ethnic Group | Unknown | + + + Author + + + | Author | [facility] | | | and [place] | + + + | Organization | [facility] | | [...] Team Providers + +------+ + | Care Liquefaction And Regasification Helper Name | Role | Phone | + +------+ + | No, Physician | PCP | Unavailable | + +------+ + Encounter Details +--------+ + + + + | Date | Type | Department | Care Team | Description | +--------+ + + + + | 02/16/ | Orders Only | [facility] | Bette Helms, TIA | | | 2018 | | CARDIOLOGY [place] | [address] | | | | | [address] | [place], [place] | | | | | [place], [place] | [address] | | | | | [address] | | | | | | [phone] | | | +--------+ + + + [...] [place] | | | | | | [address] | | | | | | | | +--------+---------+ + + + documented as of this encounter Visit Diagnoses Not on filedocumented in this encounter"
--- OUTSIDE RECORDS SUMMARY | ~2019-09-16 | XMS | Clinical Summary ---
Demographics + + + | Address | [address] | | | [place] [address] | + + + | Home Phone | | + + + | Preferred Language | Unknown | + + + | Marital Status | | + + + | Tenriism Affiliation | 1027 | + + + | Race | Unknown | + + + | Ethnic Group | Unknown | + + + Author + + + | Author | [facility] | | | and [place] | + + + | Organization | [facility] | | [...] Team Providers + +------+ + | Care Branch Logistics Supervisor Name | Role | Phone | + [...] (See Comments) | Medium | 07/02/20 | Mendon poorly, no | | | | | [...] | | | | | | | ([facility]) | | | | | | | [...] | | 2018 | on | | Keyboard Specialist | | +--------+ + + + + [...] + | Maternal Grandfather | | | [place] | | | | (Age | | [...] [place] | | | | | | [address] | | | | | | | [...] | | | | | by [employer] [place] Read Only, | | | | | | [employer] Stephanie (001), | | | | | | scientific publications editor Yousif Carrillo | | | | [...] + + + | REFERENCE LAB | [facility] | [place] [address] | [phone] | | [facility] | | | | [...] | [address] | [place] [address] | [phone] | | [facility] | | [...] + + | REFERENCE LAB | [address] [facility] | [place] [address] | [phone] | | [facility] | | | | [...] + + + | REFERENCE LAB | [address] [place] [address] | [place] [address] | [phone] | | [facility] | | [...] + +--------+ | MEDICARE | MEDICA | [id number] | 03/21/19 | [phone] | | Medica | | | RE | | 98-Pre | 5 | | re | | | PART A | | sent | | | | | | AND B | | | | | | + +--------+ +--------+ + +--------+ | MODA | MODA | [id number] | 09/21/19 | [phone] | [address] | Indemn | | | HEALTH | | 19-Pre | 9 | [address] | ity | | | MDCR | | sent | | [place], | | | | [place] | | | | [place] [address] | | + +--------+ +--------+ + +--------+ [...] | | al/Fam | | 1931 | [phone] | [place] | | | kana | | | 3 (Home) | [address] | + +--------+ +--------+ + + Advance Directives + + + + + | Type | Date Recorded | Patient | Explanation | | | | Inventory Transcriber | | + + + + + | Power of | | | | | Pipe Fitter Marine | | | | + + + + + | Advance | | | | | Directive | | | | + + + + +
--- OUTSIDE RECORDS SUMMARY | ~2019-09-16 | XMS | Encounter Summary ---
Demographics + + + | Address | [address] | | | [place] [address] | + + + | Home Phone | | + + + | Preferred Language | Unknown | + + + | Marital Status | | + + + | Pentecostalism Affiliation | 1027 | + + + | Race | Unknown | + + + | Ethnic Group | Unknown | + + + Author + + + | Author | [facility] | | | and [place] | + + + | Organization | [facility] | | [...] Team Providers + +------+ + | Care Sequins Spooler Name | Role | Phone | + +------+ + PCP | Unavailable | + +------+ + Encounter Details +--------+ + + + + | Date | Type | Department | Care Team | Description | +--------+ + + + + | 01/27/ | Hospital | [facility] | | | | 2001 | Encounter | MED CTR XRAY [address] | | | | | | [address] | | | | | | [place] [address] | | | | | | [phone] | | | +--------+ + + + [...] [place] | | | | | | [address] | | | | | | | | +--------+---------+ + + + documented as of this encounter Visit Diagnoses Not on filedocumented in this encounter"
--- OUTSIDE RECORDS SUMMARY | ~2019-09-16 | XMS | Encounter Summary ---
Demographics + + + | Address | [address] | | | [place] [address] | + + + | Home Phone | | + + + | Preferred Language | Unknown | + + + | Marital Status | | + + + | Confucianism Affiliation | 1027 | + + + | Race | Unknown | + + + | Ethnic Group | Unknown | + + + Author + + + | Author | [facility] | | | and [place] | + + + | Organization | [facility] | | | [...] Team Providers + +------+ + | Care Language Asst Name | Role | Phone | + +------+ + | No, Physician | PCP | Unavailable | + +------+ + Encounter Details +--------+ + + + + | Date | Type | Department | Care Team | Description | +--------+ + + + + | 07/29/ | Orders Only | [facility] | Conversion | | | 2016 | | CONVERSION [address] | Transaction, | | | | [address] | Provider Unknown | | | | | [place], [place] | [phone] | | | | | [address] | | | | | | [phone] | | | +--------+ + + + [...] [place] | | | | | | [address] | | | | | | | | +--------+---------+ + + + documented as of this encounter Visit Diagnoses Not on filedocumented in this encounter"
--- OUTSIDE RECORDS SUMMARY | ~2019-09-16 | XMS | Encounter Summary ---
Demographics + + + | Address | [address] | | | [place] [address] | + + + | Home Phone | | + + + | Preferred Language | Unknown | + + + | Marital Status | | + + + | Restorationism Affiliation | 1027 | + + + [...] Team Providers + +------+ + | Care House Decorator Name | Role | Phone | + +------+ + | Silva Castillo | PCP | | | [place] | | | + +------+ + Encounter Details +--------+ + + + + | Date | Type | Department | Care Team | Description | +--------+ + + + + | 06/15/ | Orders Only | [facility] | Bette Helms ANP | | | 2016 | | CARDIOLOGY [place] | [address] | | | | | [address] | [place], [place] | | | | | [place], [place] | [address] | | | | | [address] | | | | | | [phone] | | | +--------+ + + + [...] | | | | | [place], [place] | | | | | | [address] | | | | | | | | +--------+---------+ + + + documented as of this encounter Procedures + +--------+ + + + | Procedure Name | Priori | Date/Time | Associated Diagnosis | Comments | | | ty | | | | + +--------+ + + + | MAGNESIUM | Routin | 06/15/2017 | | Results for this | | | e | 11:30 AM | | procedure are in the | | | | PDT | | results section. | + +--------+ + + + | BASIC METABOLIC | Routin | 06/15/2017 | | Results for this | | PANEL | e | 11:30 AM | | procedure are in the | | | | PDT | | results section. | + +--------+ + + + documented in this encounter Results Magnesium (06/15/2017 11:30 AM PDT) + +-------+ + + + | Component | Value | Ref Range | Performed | Pathologist | | | | | At | Signature | + +-------+ + + + | Magnesium | 1.8 | 1.7 - 2.5 mg/dL | EXTERNAL | | | | | | LAB | | + +-------+ + + + + + | Specimen | + + | Blood specimen | | (specimen) | + + + +---------+ + + | Performing | Address | City/State/Zipcode | Phone Number | | Organization | | | | + +---------+ + + | EXTERNAL LAB | | | | + +---------+ + + Basic Metabolic Panel (06/15/2017 11:30 AM PDT) + + + + + + | Component | Value | Ref Range | Performed | Pathologist | | | | | At | Signature | + + + + + + | Glucose, | 96 | 70 - 100 mg/dL | EXTERNAL | | | Fasting | | | LAB | | + + + + + + | BUN | 23 | 6 - 23 mg/dL | EXTERNAL | | | | | | LAB | | + + + + + + | Creatinine | 0.55 (A) | 0.70 - 1.11 | EXTERNAL | | | | | mg/dL | LAB | | + + + + + + | BUN/Creatin | 41.8 (A) | 6.0 - 28.6 | EXTERNAL [...] + + + + | K | 4.2 | 3.6 - 5.1 | EXTERNAL | | | | | mmol/L | LAB | | + + + + + + | Cl | 102 | 95 - 112 mmol/L | EXTERNAL | | | | | | LAB | | + + + + + + | CO2 | 29 | 19 - 31 mmol/L | EXTERNAL | | | | | | LAB | | + + + + + + | Anion Gap | 14.2 | 7 - 21 mmol/L | EXTERNAL | | | | | | LAB | | + + + + + + | Estimated | 105 | 60 mg/dL | EXTERNAL | | [...]
--- OUTSIDE RECORDS SUMMARY | ~2019-09-16 | XMS | Encounter Summary ---
Demographics + + + | Address | [address] | | | [place] [address] | + + + | Home Phone | | + + + | Preferred Language | Unknown | + + + | Marital Status | | + + + | Latter Day Affiliation | 1027 | + + + [...] Team Providers + +------+ + | Care Auto Painter Name | Role | Phone | + +------+ + | No, Physician | PCP | Unavailable | + +------+ + Encounter Details +--------+ + + + + | Date | Type | Department | Care Team | Description | +--------+ + + + + | 02/18/ | Orders Only | [facility] | DozierDarrell olmos Richard, | | | 2018 | | CARDIOLOGY RIK Weber MD [address] | | | | | [address] | [place], [place] | | | | | [place], [place] | [address] | | | | | [address] | | | | | | [phone] | | | +--------+ + + + [...] [place] | | | | | | [address] | | | | | | | | +--------+---------+ + + + documented as of this encounter Visit Diagnoses Not on filedocumented in this encounter"
--- OUTSIDE RECORDS SUMMARY | ~2019-09-16 | XMS | Encounter Summary ---
Demographics + + + | Address | [address] | | | [place] [address] | + + + | Home Phone | | + + + | Preferred Language | Unknown | + + + | Marital Status | | + + + | Advent Affiliation | 1027 | + + + [...] Team Providers + +------+ + | Care Radiosonde Operator Name | Role | Phone | [...] + + | 07/21/ | Refill | [facility] | Nilam Perkins | Medication Refill | | 2019 | | CARDIOLOGY [place] | [address] | | | | | [address] | [address] | | | | | [address] | [place] [address] | | | | | [place] | [phone] | | | | | [address] | | | | | | [phone] | | | +--------+--------+ + + + [...] [place] | | | | | | [address] | | | | | | | | +--------+---------+ + + + documented as of this encounter Visit Diagnoses Not on filedocumented in this encounter"
--- OUTSIDE RECORDS SUMMARY | ~2019-09-16 | XMS | Encounter Summary ---
Demographics + + + | Address | [address] | | | [place] [address] | + + + | Home Phone | | + + + | Preferred Language | Unknown | + + + | Marital Status | | + + + | Alevism Affiliation | 1027 | + + + | Race | Unknown | + + + | Ethnic Group | Unknown | + + + Author + + + | Author | [facility] | | | and [place] | + + + | Organization | [facility] | | | [...] Team Providers + +------+ + | Care Record Tabulating Clerk Name | Role | Phone | + [...] + + | 07/21/ | Refill | [facility] | Nilam Perkins | Medication Refill | | 2019 | | CARDIOLOGY [place] | [address] | | | | | [address] | [address] | | | | | [address] | [place] [address] | | | | | [place] | [phone] | | | | | [address] | | | | | | [phone] | | | +--------+--------+ + + + [...] [place] | | | | | | [address] | | | | | | | | +--------+---------+ + + + documented as of this encounter Visit Diagnoses Not on filedocumented in this encounter"
--- OUTSIDE RECORDS SUMMARY | ~2019-09-16 | XMS | Encounter Summary ---
Demographics + + + | Address | [address] | | | [place] [address] | + + + | Home Phone | | + + + | Preferred Language | Unknown | + + + | Marital Status | | + + + | Mandaen Affiliation | 1027 | + + + | Race | Unknown | + + + | Ethnic Group | Unknown | + + + Author + + + | Author | [facility] | | | and [place] | + + + | Organization | [facility] | | | [...] Team Providers + +------+ + | Care Heat And Frost Insulator Helper Name | Role | Phone | [...] Description | +--------+---------+ + + + | 07/20/ | Office | [facility] | Bette Helms ANP | Paroxysmal atrial | | 2019 | Visit | [facility] [place] | [address] | fibrillation (HCC) | | | | [address] | [place], [place] | (Primary Dx); | | | | [place], [place] | [address] | Hypertension goal BP | | | | [phone] | | (blood pressure) < | | | | [phone] | | 140/80 | +--------+---------+ + + [...] + + + | Blood Pressure | 138/78 | 07/20/2019 1:53 PM | | | | | PDT | | + + + + + | Pulse | 82 | 07/20/2019 1:53 PM | | | | | PDT | | + + + + + | Temperature | - | - | | + + + + + | Respiratory Rate | - | - | | + + + + + | Oxygen Saturation | 96% | 07/20/2019 1:53 PM | | | | | PDT | | + + + + + | Inhaled Oxygen | - | - | | | Concentration | | | | + + + + + | Weight | 65.4 kg (144 lb 3.2 | 07/20/2019 1:53 PM | | | | oz) | PDT | | + + + + + | Height | 170.2 cm (5' 7") | 07/20/2019 1:53 PM | | | | | PDT | | + + + + + | Body Mass Index | 22.58 | 07/20/2019 1:53 PM | | | | | PDT | | + + + + + documented in this encounter Patient Instructions Patient Instructions Bette Helms ANP - 07/20/2019 1:45 PM PDTCONTINUE AMIODARONE 400MG D AILY UNTIL AUG 13, THEN LOWER TO 200MG DAILY. YOU WILL NEED WEEKLY INR CHECKS WITH THE COUMADIN CLINIC FOR ONE MONTH AFTER LOWERING YOUR DOSE OF AMIODARONE. documented in this encounter Progress Notes Bette Helms ANP - 07/20/2019 1:45 PM PDT ELECTROPHYSIOLOGY OUTPATIENT FOLLOW UP PATIENT NAME: Gaby Del Rio : 1930: AGE: 88 y.o. (home) : PRIMARY CARE: No Physician on file Requesting Physician: No referring provider defined for this encounter. Plan SUMMARY OF EP RECOMMENDATIONS We again re-discussed her amiodarone dosing, which she has only been taking 200mg daily sin ce 06/04. Due for labs and ordered today. Weekly INR checks for the next [address] [facility] given Amiodarone adjustment. Return to EP in 1 month or sooner PRN EK07/20/2019 personally reviewed and interpreted reveals AFlutter HR 81, NC , QRSD 82, Q TC 332 Greater than 45 minutes spent with patient and/or family. Greater than 25 minutes spent in counseling and education on AFIB and amiodarone. EP PROBLEMS ADDRESSED AT TODAY'S VISIT Problem [...] all possible given her or thostatic lightheadedness 07/20/2019 BP at target today. Keep BP and HR log BID until she returns in one month. Paroxysmal atrial fibrillation Overview She's had 3 [...] to Amiodarone. Loading with 400mg daily until Sept er 1, then lowering to 200mg daily. QTC today was 415. 07/20/2019 She has again had confusion regarding her medication regimen and has only been taking Amiod arone 200mg daily. I have asked her to increase to 400mg daily and return to see me in Thu, at which time, I will lower her dose to 200mg daily. Check labs, Amiodarone monitoring e very 6 months. COMPREHENSIVE PROBLEM LIST Patient Active [...] atrial fibrillation (HCC) 07/29/2016 Note Last Updated: 07/20/2019 She's had 3 episodes of atrial fibrillation [...] to Amiodarone. Loading with 400mg daily until Septemb er 1, then lowering to 200mg daily. QTC today was 415. 07/20/2019 She has again had confusion regarding her medication regimen and has only been taking Amiod arone 200mg daily. I have asked her to increase to 400mg daily and return to see me in Thu, at which time, I will lower her dose to 200mg daily. Check labs, Amiodarone monitoring e very 6 months. Hypertension goal BP (blood pressure) < 140/80 07/29/2016 Note Last Updated: 07/20/2019 Her blood pressure has actually been running [...] all possible given her or thostatic lightheadedness 07/20/2019 BP at target today. Keep BP and HR log BID until she returns in one month. Type 2 diabetes mellitus without complication, without long-term current use of insulin ([facility]) 07/29/2016 HISTORY OF PRESENT ILLNESS This patient presents 07/20/2019 Reporting doing poorly with worsening fatigue in the last month. No chest pain or palpitations. No shortness of breath, PND or orthopnea. No signs or symptoms of bleeding. Compliant with medications. INR followed by [facility] at [facility], INR was 2.0 yesterday. is ailing with dialysis and dementia, lots of life str essors. Very fatigued on current regimen and reporting some hair loss. Allergies Allergen Reactions Indapamide Other (See Comments) Marion poorly, no energy Codeine Nausea Only Nausea Current Medications Current Outpatient Medications: amiodarone (PACERONE) 400 MG tablet, Take 1 tablet by mouth Daily. For 3 months, then decrease to 200 mg daily, Disp: 30 tablet, Rfl: 11 dilTIAZem (CARDIZEM) 30 mg tablet, Take 1 tablet by mouth 2 times daily. X 2 weeks the n go back to prn, Disp: 60 tablet, Rfl: 1 hydroCHLOROthiazide (HYDRODIURIL) 12.5 MG tablet, Take 1 tablet by mouth Daily., Disp: 90 tablet, Rfl: 3 levothyroxine (SYNTHROID) 88 mcg tablet, TAKE 1 TABLET BY MOUTH EVERY MORNING BEFORE B REAKFAST, Disp: 90 tablet, Rfl: 3 lisinopril (PRINIVIL, ZESTRIL) 10 mg tablet, Take 1 tablet by mouth nightly., Disp: 90 tablet, Rfl: 1 magnesium oxide (MAG-OX) 400 mg tablet, TAKE ONE TABLET BY MOUTH EVERY DAY, Disp: 90 t ablet, Rfl: 3 metFORMIN (GLUCOPHAGE) 500 mg tablet, Take 500 mg by mouth Before eavning meal., Disp: , Rfl: potassium chloride (KLOR-CON) 10 MEQ ER tablet, Take 10 mEq by mouth 2 times daily., D isp: , Rfl: warfarin (COUMADIN) 2.5 mg tablet, Take 2.5 mg by mouth daily. 2.5mg daily except Frid ays; 5mg (Patient taking differently: Take 2.5 mg by mouth. 2.5mg daily), Disp: , Rfl: The past history, social history, family history and problem list were reviewed and update d with changes of any significance. DATA Laboratory values which I reviewed 07/20/2019 are as follows: No results found for: WBC, RBC, HGB, [...] reviewed and agree with ROS listed by ODALIS vega. All other systems are reviewed and negative. PHYSICAL EXAM BP 138/78 | Pulse 82 | Ht 1.702 m (5' 7") | Wt 65.4 kg (144 lb 3.2 oz) | SpO2 96% | BM I 22.58 kg/m Physical Exam Constitutional: She is oriented to person, place, and time. She appears well-developed and well-nourished. HENT: Head: Normocephalic and atraumatic. Eyes: Pupils are equal, round, and reactive to light. Neck: No JVD present. No thyromegaly present. Cardiovascular: Normal rate. A regularly irregular rhythm present. No murmur heard. Pulmonary/Chest: Effort normal and breath sounds normal. She has no rales. Abdominal: Soft. Bowel sounds are normal. There is no tenderness. Musculoskeletal: She exhibits no edema. Neurological: She is alert and oriented to person, place, and time. Skin: Skin is warm and dry. Psychiatric: She has a normal mood and affect. Vitals reviewed. TIA Watkins 07/20/2019 14:30 *This report has been prepared using a voice recognition system. The report was reviewed f or accuracy, however, sound-alike word errors, addition and/or deletions may occur. If there is any question about this report please contact me. Patient Instructions CONTINUE AMIODARONE 400MG DAILY UNTIL AUG 13, THEN LOWER TO 200MG DAILY. YOU WILL NEED WEEKLY INR CHECKS WITH THE COUMADIN CLINIC FOR ONE MONTH AFTER LOWERING YOUR DOSE OF AMIODARONE. Natalie White Medic al Product Consultant - 07/20/2019 1:45 PM Maris JACOBO Note- Electrophysiology Patient ID: Gaby Del Rio is a 88 y.o. female. Review of Systems Constitutional: Positive for malaise/fatigue. Negative for chills, fever and weight loss. HENT: Negative for congestion and sore throat. Respiratory: Negative for cough and shortness of breath. Cardiovascular: Positive for leg swelling. Negative for chest pain and palpitations. Gastrointestinal: Negative for abdominal pain and blood in stool. Genitourinary: Negative for hematuria. Musculoskeletal: Negative for myalgias. Neurological: Positive for dizziness and sensory change. Negative for loss of consciousness . Have you ever had a sleep study? (NO) Do you use oxygen? (NO) Do you use CPAP? (NO) Do you snore? (NO) Do you fall asleep for no reason during the day? (YES) Do you stop breathing at night? (NO) Do you feel excessively tired during the day? (YES) documina mellissaed in this encounter Plan of Treatment +--------+---------+ + + + | Date | Type | Specialty | Care Team | Description | +--------+---------+ + + + | 11/21/ | Office | Cardiology | Bette Helms, ANP | | | 2019 | Visit | | [address] | | | | | | [place] | | | | | | [id number] | | | | | | | [...] + + documented in this encounter Results ECG 12 lead (07/20/2019 2:00 PM PDT) + + + + + + | Component | Value | Ref Range | Performed | Pathologist | | | | | At | Signature | + + + + + + | VENTRICULAR | 81 | BPM | [facility] | | | RATE EKG | | | | | + + + + + + | ATRIAL RATE | 208 | BPM | [facility] | | + + + + + + | QRS | 82 | ms | [facility] | | | DURATION | | | | | + + + + + + | Q-T | 286 | ms | [facility] | | | INTERVAL | | | | | + + + + + + | Q-T | 332 | ms | [facility] | | | INTERVAL | | | | | | (CORRECTED) | | | | | + + + + + + | P WAVE AXIS | 79 | degrees | [facility] | | + + + + + + | QRS AXIS | 60 | degrees | [facility] | | + + + + + + | T AXIS | 111 | degrees | [facility] | | + + + + + + | INTERPRETAT | Please refer to | | [facility] | | | ION TEXT | Providers office visit | | | | | | note for Providers | | | | | | Interpretation.Confirmed | | | | | | by [facility] [place] Read Only, | | | | | | [facility] Stephanie ([id number]), | | | | | | material expeditor Yousif Carrillo | | | | | | ([id number]) on 07/20/2019 | | | | | | 3:43:57 PM | | | | + + [...]
--- OUTSIDE RECORDS SUMMARY | ~2019-09-16 | XMS | Encounter Summary ---
Demographics + + + | Address | [address] | | | [place] [address] | + + + | Home Phone | | + + + | Preferred Language | Unknown | + + + | Marital Status | | + + + | Jainism Affiliation | 1027 | + + + | Race | Unknown | + + + | Ethnic Group | Unknown | + + + Author + + + | Author | [facility] | | | and [place] | + + + | Organization | [facility] | | | and [...] Team Providers + +------+ + | Care Bumper And Painter Name | Role | Phone | + +------+ + | Silva Castillo | PCP | | | PA | | | + +------+ + Encounter Details +--------+ + + + + | Date | Type | Department | Care Team | Description | +--------+ + + + + | 06/09/ | Orders Only | [facility] | [place] | | | 2015 | | CONVERSION [address] | MD [address] | | [address] | [address] | | | | | [place] | [place] [address] | | | | | [address] | [phone] | | | | | [phone] | | | +--------+ + + + [...] [place] | | | | | | [address] | | | | | | | | +--------+---------+ + + + documented as of this encounter Procedures + +--------+ + + + | Procedure Name | Priori | Date/Time | Associated Diagnosis | Comments | | | ty | | | | + +--------+ + + + | ECHO INTERPRETATION | Routin | 06/09/2016 | | Results for this | | OF OUTSIDE FILMS | e | 11:39 AM | | procedure are in the | | | | PDT | | results section. | + +--------+ + + + documented in this encounter Results ECHO Interpretation of Outside Films (06/09/2016 11:39 AM PDT) + + | Specimen | + + | | + + + + + | Impressions | Performed At | + + + | 1. See Dictation. TDS. Sinus. 2. LV dimensions and systolic | | | function NML, Grade 2 diastolic abnormality, [place] visually estimates | | | LVEF 65-70%. Mild LAE (by volume, PSLAx 36mm). RA/RV NML. 3. | | | Aortic valve mildly sclerotic, no /AI. Mitral valve grossly NML, | | | mild MAC, mild MR. Tricuspid valve grossly NML, mild-moderate TR. | | | Pulmonic valve grossly NML, mild PI. 4. No Pericardial effusion. 5. | | | IVC NML, est systolic PAP 62-67mmHg, moderate Pulmonary HTN. 6. | | | Incidental finding of a large hepatic cyst. | | + + + + + + | Narrative | Performed At | + + + | Patient Name: Gaby Del Rio Date of : 1930 | | | Performing Physician: Klaus Jon DO | | | | | | INDICATIONS A-fib CONCLUSIONS 1. See | | | Dictation. TDS. Sinus. 2. LV dimensions and systolic function NML, | | | Grade 2 diastolic abnormality, [place] visually estimates LVEF 65-70%. | | | Mild LAE (by volume, PSLAx 36mm). RA/RV NML. 3. Aortic valve | | | mildly sclerotic, no /AI. Mitral valve grossly NML, mild MAC, | | | mild MR. Tricuspid valve grossly NML, mild-moderate TR. Pulmonic | | | valve grossly NML, mild PI. 4. No Pericardial effusion. 5. IVC NML, | | | est systolic PAP 62-67mmHg, moderate Pulmonary HTN. 6. Incidental | | | finding of a large hepatic cyst. FINDINGS -------- ECG rhythm: | | | Sinus rhythm. Study: This was a technically difficult study with | | | suboptimal views. Left Ventricle: Overall left ventricular systolic | | | function is normal with, an EF between 65 - 70 %. Left Ventricle: The | | | left ventricle cavity size is normal. Left Ventricle: Left | | | ventricular wall thickness is normal. Left Ventricle: Pseudonormal LV | | | diastolic filling pattern, consistent with elevated LA pressure and | | | moderate dysfunction (Grade II). Right Ventricle: The right ventricle | | | is normal in size. Right Ventricle: The right ventricular systolic | | | function is normal. Left Atrium: The left atrium is mildly enlarged. | | | Right Atrium: The right atrium is normal in size. Aortic Valve: | | | There is mild aortic valve sclerosis without stenosis. Aortic Valve: | | | There is no evidence of aortic regurgitation. Mitral Valve: The | | | mitral valve is normal. Mitral Valve: Mild mitral regurgitation is | | | present. Mitral Valve: Mild mitral annular calcification present. | | | Tricuspid Valve: The tricuspid valve appears structurally normal. | | | Tricuspid Valve: Xays-cy-xvqpesua tricuspid regurgitation present. | | | Pulmonic Valve: Pulmonic valve appears structurally normal. Pulmonic | | | Valve: Mild pulmonic regurgitation. Pericardium: There is no | | | pericardial effusion. IVC/Hepatic Veins: The IVC is normal size | | | (1.5-2.5cm) and collapses >50% with sniff, consistent with central | | | venous pressures of 5-10mmHg. Mass: Large hepatic cyst. | | | MEASUREMENTS Home Care Giver: KAE Authenticated by: | | | Klaus Jon DO Report Date/Time: -- [id number] | | + + + + + | Procedure Note | + + | Adal Greenberg Conversion - 05/13/2019 10:47 AM PDT Patient Name: Bruna Del Rio | | of : 1930 Performing Physician: Klaus Jon | | DO INDICATIONS A | | -fib CONCLUSIONS 1. See Dictation. TDS. Sinus. 2. LV dimensions and systolic | | function NML, Grade 2 diastolic abnormality, [place] visually estimates LVEF 65-70%. | | Mild LAE (by volume, PSLAx 36mm). RA/RV NML. 3. Aortic valve mildly sclerotic, no | | /AI. Mitral valve grossly NML, mild MAC, mild MR. Tricuspid valve grossly NML, | | mild-moderate TR. Pulmonic valve grossly NML, mild PI. 4. No Pericardial effusion. 5. | | IVC NML, est systolic PAP 62-67mmHg, moderate Pulmonary HTN. 6. Incidental finding of a | | large hepatic cyst. FINDINGS--------ECG rhythm: Sinus rhythm.Study: This was a | | technically difficult study with suboptimal views.Left Ventricle: Overall left | | ventricular systolic function is normal with, an EF between 65 - 70 %.Left Ventricle: | | The left ventricle cavity size is normal.Left Ventricle: Left ventricular wall thickness | | is normal.Left Ventricle: Pseudonormal LV diastolic filling pattern, consistent with | | elevated LA pressure and moderate dysfunction (Grade II).Right Ventricle: The right | | ventricle is normal in size.Right Ventricle: The right ventricular systolic function is | | normal.Left Atrium: The left atrium is mildly enlarged.Right Atrium: The right atrium is | | normal in size.Aortic Valve: There is mild aortic valve sclerosis without | | stenosis.Aortic Valve: There is no evidence of aortic regurgitation.Mitral Valve: The | | mitral valve is normal.Mitral Valve: Mild mitral regurgitation is present.Mitral Valve: | | Mild mitral annular calcification present.Tricuspid Valve: The tricuspid valve appears | | structurally normal.Tricuspid Valve: Rcen-fq-vayhmtjt tricuspid regurgitation | | present.Pulmonic Valve: Pulmonic valve appears structurally normal.Pulmonic Valve: Mild | | pulmonic regurgitation.Pericardium: There is no pericardial effusion.IVC/Hepatic Veins: | | The IVC is normal size (1.5-2.5cm) and collapses >50% with sniff, consistent with | | central venous pressures of 5-10mmHg.Mass: Large hepatic cyst. MEASUREMENTS | | Home Care Giver: Daneticated by: Klaus Gayle Date/Time: -- | | [id number] IMPRESSION: 1. See Dictation. TDS. Sinus. 2. LV dimensions and | | systolic function NML, Grade 2 diastolic abnormality, [place] visually estimates LVEF | | 65-70%. Mild LAE (by volume, PSLAx 36mm). RA/RV NML. 3. Aortic valve mildly sclerotic, | | no /AI. Mitral valve grossly NML, mild MAC, mild MR. Tricuspid valve grossly NML, | | mild-moderate TR. Pulmonic valve grossly NML, mild PI. 4. No Pericardial effusion. 5. | | IVC NML, est systolic PAP 62-67mmHg, moderate Pulmonary HTN. 6. Incidental finding of a | | large hepatic cyst. | |Mitral Valve: Mild mitral annular calcification present. | |Tricuspid Valve: The tricuspid valve appears structurally normal. | |Tricuspid Valve: Tctr-gn-dxfokxkb tricuspid regurgitation present. | |Pulmonic Valve: Pulmonic valve appears structurally normal. | |Pulmonic Valve: Mild pulmonic regurgitation. | |Pericardium: There is no pericardial effusion. | |IVC/Hepatic Veins: The IVC is normal size (1.5-2.5cm) and collapses >50% with sniff, consis tent with central venous pressures of 5-10mmHg. | |Mass: Large hepatic cyst. | | | |MEASUREMENTS | | | | | |Home Care Giver: DBS | |Authenticated by: Klaus Jon DO | |Report Date/Time: -- [id number] | | | |IMPRESSION: | |1. See Dictation. TDS. Sinus. 2. LV dimensions and systolic function NML, Grade 2 diastol ic abnormality, [place] visually estimates LVEF 65-70%. Mild LAE (by volume, PSLAx 36mm). R A/RV NML. 3. Aortic valve mildly sclerotic, no /AI. Mitral valve | |grossly NML, mild MAC, mild MR. Tricuspid valve grossly NML, mild-moderate TR. Pulmonic v alve grossly NML, mild PI. 4. No Pericardial effusion. 5. IVC NML, est systolic PAP 62-67mmH g, moderate Pulmonary HTN. 6. Incidental finding of a large hepatic | |cyst. | + + documented in this encounter Visit Diagnoses Not on filedocumented in this encounter"
--- OUTSIDE RECORDS SUMMARY | ~2019-09-16 | XMS | Encounter Summary ---
Demographics + + + | Address | [address] | | | [place] [address] | + + + | Home Phone | | + + + | Preferred Language | Unknown | + + + | Marital Status | | + + + | Taoism Affiliation | 1027 | + + + | Race | Unknown | + + + | Ethnic Group | Unknown | + + + Author + + + | Author | [facility] | | | and [place] | + + + | Organization | [facility] | | [...] Team Providers + +------+ + | Care Bus Aide Name | Role | Phone | + +------+ + | No, Physician | PCP | Unavailable | + +------+ + Reason for Visit +--------+ + | Reason | Comments | +--------+ + | Other | | +--------+ + Encounter Details +--------+ + + + + | Date | Type | Department | Care Team | Description | +--------+ + + + + | 08/23/ | Telephone | [facility] | Bette Helms ANP | Other | | 2019 | | CARDIOLOGY [place] | [address] | | | | | [address] | [place], [place] | | | | | [place], [place] | [address] | | | | | [address] | | | | | | [phone] | | | +--------+ + + + [...]
--- OUTSIDE RECORDS SUMMARY | ~2019-09-16 | XMS | Encounter Summary ---
Demographics + + + | Address | [address] | | | [place] [address] | + + + | Home Phone | | + + + | Preferred Language | Unknown | + + + | Marital Status | | + + + | Amish Affiliation | 1027 | + + + | Race | Unknown | + + + | Ethnic Group | Unknown | + + + Author + + + | Author | [facility] | | | and [place] | + + + | Organization | [facility] | | | [...] Team Providers + +------+ + | Care Sample Examiner Name | Role | Phone | + +------+ + | Silva Castillo | PCP | | | PA | | | + +------+ + Encounter Details +--------+ + + + + | Date | Type | Department | Care Team | Description | +--------+ + + + + | 06/15/ | Orders Only | [facility] | Bette Helms ANP | | | 2016 | | CARDIOLOGY [place] | [address] | | | | | [address] | [place], [place] | | | | | [place], [place] | [address] | | | | | [address] | | | | | | [phone] | | | +--------+ + + + [...] | | | | | [place], [place] | | | | | | [address] | | | | | | | [...]
--- OUTSIDE RECORDS SUMMARY | ~2019-09-16 | XMS | Encounter Summary ---
Demographics + + + | Address | [address] | | | [place] [address] | + + + | Home Phone | | + + + | Preferred Language | Unknown | + + + | Marital Status | | + + + | Shinto Affiliation | 1027 | + + + | Race | Unknown | + + + | Ethnic Group | Unknown | + + + Author + + + | Author | [facility] | | | and [place] | + + + | Organization | [facility] | | | [...] Team Providers + +------+ + | Care Gameplay Programmer Name | Role | Phone | + [...] Provider Unknown | | | | | [place], [place] | [phone] | | | | | [address] | | | | | | [phone] | | | +--------+ + + + [...] [place] | | | | | | [address] | | | | | | | | +--------+---------+ + + + documented as of this encounter Visit Diagnoses Not on filedocumented in this encounter"
--- OUTSIDE RECORDS SUMMARY | ~2019-09-16 | XMS | Encounter Summary ---
Demographics + + + | Address | [address] | | | [place] [address] | + + + | Home Phone | | + + + | Preferred Language | Unknown | + + + | Marital Status | | + + + | Church Affiliation | 1027 | + + + | Race | Unknown | + + + | Ethnic Group | Unknown | + + + Author + + + | Author | [facility] | | | and [place] | + + + | Organization | [facility] | | | and [...] Team Providers + +------+ + | Care Copier Field Service Technician Name | Role | Phone | [...] + + | 05/12/ | Office | [facility] | Nilam Perkins | Paroxysmal atrial | | 2019 | Visit | CARDIOLOGY [place] | [address] | fibrillation (HCC) | | | | [address] | [address] | (Primary Dx); | | | | [address] | [place] [address] | Hypertension goal BP | | | | [place] | [phone] | (blood pressure) < | | | | [address] | | 140/80; Pulmonary | | | | [phone] | | hypertension (HCC); | | | [...] history of paroxysmal atrial fib since 2009 ,[id number] VASC score of 5, essential h ypertension, [...] from 62-67 previously. Pulmonic valve normal, mild SD. No pericardial e ffusion. IVC WNL, CVP [...] GFR 112 INR: 09/28/2017: 2.0 Labs: 05/10/2019: [facility]: CBC: WBC 6.5, RBC 3.88, hemoglobin 12, hematocrit 36.8, platelets 227. INR 1.5. CMP: Glucose 172, BUN 22, creatinine 0.85, GFR 63, sodium 143, pot assium 3.8, chloride 108, albumin 3.2, total bili 0.6, AST 10, ALT 9, alk phos 64, troponin T <0.010 EKG: EKG 2016: Normal sinus rhythm with sinus arrhythmia, rate 67 bpm, SD 144 ms, QRS 82 m s, QTC 439 mm, were compared to EKG in May 2016,T wave inversion has now resolved EK: Sinus rhythm. Rate 73 bpm, SD 150 ms, QRS 68 ms, QTC 449 ms EK06/18: Normal sinus rhythm and nonspecific ST T wave abnormality, rate 87 bpm, SD 146 ms, QRS 80 ms, QTC 445 ms (personally reviewed by me in the office today) EK01/28/2018: Normal sinus rhythm, possible left atrial enlargement, left ventricular hyp ertrophy, nonspecific ST abnormality. Rate 77 bpm, SD 144 ms, QRS 76 ms, QTC 434 ms, lisette ochoa personally reviewed by me EK03/16/2019: Sinus rhythm with occasional PVC. Rate 82 bpm, SD 150 ms, QRS 80 ms, QTC 4 50 ms, tracing personally reviewed by me EK05/10/2019: ([facility]). 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 Rate 115 bpm, QRS 86 ms, QTC 520 ms, tracing personally reviewed by me EK05/12/2019: Sinus rhythm with frequent and consecutive PVCs, LVH with repolarization ab normality, old septal infarct. Rate 82 bpm, SD 146 ms, QRS 82 ms, QTC 462 [...] I have instructed her to see the [facility] weekly to monitor her INR when [...] 2-3 to be monit ored by the [facility] Coumad[facility]. I will see her back [...] past surgical history. Problem list. Juliette QUIROZ [facility] Cardiology 05/12/2019 Cristin garcia in this [...] [place] | | | | | | [address] | | | | | | | [...] | | | | | by [facility] [place] Read Only, | | | | | | [facility] Stephanie ([id number]), | | | | | | editorial director Yousif Carrillo | | | | | | [phone]) on 05/12/2019 | | | | | [...]
--- OUTSIDE RECORDS SUMMARY | ~2019-09-16 | XMS | Encounter Summary ---
Demographics + + + | Address | [address] | | | [place] [address] | + + + | Home Phone | | + + + | Preferred Language | Unknown | + + + | Marital Status | | + + + | Restoration Affiliation | 1027 | + + + | Race | Unknown | + + + | Ethnic Group | Unknown | + + + Author + + + | Author | [facility] | | | and [place] | + + + | Organization | [facility] | | | [...] Team Providers + +------+ + | Care Client Technical Support Associate Name | Role | Phone | + +------+ + | Silva Castillo | PCP | | | PA | | | + +------+ + Encounter Details +--------+ + + + + | Date | Type | Department | Care Team | Description | +--------+ + + + + | 06/09/ | Orders Only | [facility] | [place] | | | 2015 | | CONVERSION [address] | MD [address] | | | | | [address] | [address] | | | | | [address] | [place] [address] | | | | | [address] | [phone] | | | | | [phone] | | | +--------+ + + + [...] [address] | | | | | | [place] | | | | | | [address] | | | | | | | [...] | function NML, Grade 2 diastolic abnormality, [place] visually estimates | | | LVEF 65-70%. [...] | | | Grade 2 diastolic abnormality, [place] visually estimates LVEF 65-70%. | | | [...] structurally normal. | | | Tricuspid Valve: Objg-ds-uumnxamd tricuspid regurgitation present. | | | Pulmonic [...] Large hepatic cyst. | | | MEASUREMENTS Search Manager: KAE Authenticated by: | | | Klaus Jon DO Report Date/Time: -- [id number]:16:40 | | + + + + + | Procedure Note | + + | Adal Greenberg Conversion - 05/13/2019 10:47 AM PDT Patient Name: Bruna Del Rio | | of : 1930 Performing Physician: Klaus Jon | | DO INDICATIONS A | | -fib CONCLUSIONS 1. See Dictation. TDS. Sinus. 2. LV dimensions and systolic | | function NML, Grade 2 diastolic abnormality, [place] visually estimates LVEF 65-70%. | | Mild [...] valve appears | | structurally normal.Tricuspid Valve: Imth-sp-fziypahu tricuspid regurgitation | | present.Pulmonic Valve: Pulmonic valve appears structurally normal.Pulmonic Valve: Mild | | pulmonic regurgitation.Pericardium: There is no pericardial effusion.IVC/Hepatic Veins: | | The IVC is normal size (1.5-2.5cm) and collapses >50% with sniff, consistent with | | central venous pressures of 5-10mmHg.Mass: Large hepatic cyst. MEASUREMENTS | | Search Manager: Daneticated by: Klaus Gayle Date/Time: -- | | [id number]:40 IMPRESSION: 1. See Dictation. TDS. Sinus. 2. LV dimensions and | | systolic function NML, Grade 2 diastolic abnormality, [place] visually estimates LVEF | | 65-70%. Mild [...] valve appears structurally normal. | |Tricuspid Valve: Ypie-yz-scqpddct tricuspid regurgitation present. | |Pulmonic Valve: Pulmonic valve appears structurally normal. | |Pulmonic Valve: Mild pulmonic regurgitation. | |Pericardium: There is no pericardial effusion. | |IVC/Hepatic Veins: The IVC is normal size (1.5-2.5cm) and collapses >50% with sniff, consis tent with central venous pressures of 5-10mmHg. | |Mass: Large hepatic cyst. | | | |MEASUREMENTS | | | | | |Search Manager: DBS | |Authenticated by: Klaus Jon DO | |Report Date/Time: -- [id number]:16:40 | | | |IMPRESSION: | |1. See Dictation. TDS. Sinus. 2. LV dimensions and systolic function NML, Grade 2 diastol ic abnormality, [place] visually estimates LVEF 65-70%. Mild LAE (by [...]
--- OUTSIDE RECORDS SUMMARY | ~2019-09-16 | XMS | Encounter Summary ---
Demographics + + + | Address | [address] | | | [place] [address] | + + + | Home Phone | | + + + | Preferred Language | Unknown | + + + | Marital Status | | + + + | Shinto Affiliation | 1027 | + + + | Race | Unknown | + + + | Ethnic Group | Unknown | + + + Author + + + | Author | [facility] | | | and [place] | + + + | Organization | [facility] | | [...] Team Providers + +------+ + | Care Commercial Lines Sales Executive Name | Role | Phone | + [...] + + | 05/25/ | Documentati | [facility] | Rosenda Carpenter, | Labs Only (Collected | | 2019 | on | [facility] [place] | [facility] | 05/18/2019) | | | | [address] | | | | | | [place], [place] | | | | | | [address] | | | | | | [phone] | | | +--------+ + + + [...] [place] | | | | | | [address] | | | | | | | | +--------+---------+ + + + documented as of this encounter Visit Diagnoses Not on filedocumented in this encounter"
--- OUTSIDE RECORDS SUMMARY | ~2019-09-16 | XMS | Encounter Summary ---
Demographics + + + | Address | [address] | | | [place] [address] | + + + | Home Phone | | + + + | Preferred Language | Unknown | + + + | Marital Status | | + + + | Muslim Affiliation | 1027 | + + + | Race | Unknown | + + + | Ethnic Group | Unknown | + + + Author + + + | Author | [facility] | | | and [place] | + + + | Organization | [facility] | | | [...] Team Providers + +------+ + | Care Brass Polisher Name | Role | Phone | + +------+ + | Silva Castillo | PCP | | | PA | | | + +------+ + Encounter Details +--------+ + + + + | Date | Type | Department | Care Team | Description | +--------+ + + + + | 06/15/ | Orders Only | [facility] | Bette Helms ANP | | | 2016 | | CARDIOLOGY [place] | [address] | | | | | [address] | [place], [place] | | | | | [place], [place] | [address] | | | | | [address] | | | | | | [phone] | | | +--------+ + + + [...] | | | | | [place], [place] | | | | | | [address] | | | | | | | [...]
--- OUTSIDE RECORDS SUMMARY | ~2019-09-16 | XMS | Encounter Summary ---
Demographics + + + | Address | [address] | | | [place] [address] | + + + | Home Phone | | + + + | Preferred Language | Unknown | + + + | Marital Status | | + + + | Hinduism Affiliation | 1027 | + + + | Race | Unknown | + + + | Ethnic Group | Unknown | + + + Author + + + | Author | [facility] | | | and [place] | + + + | Organization | [facility] | | | [...] Team Providers + +------+ + | Care Stabber Name | Role | Phone | + +------+ + | Silva Castillo | PCP | | | PA | | | + +------+ + Encounter Details +--------+ + + + + | Date | Type | Department | Care Team | Description | +--------+ + + + + | 04/09/ | Orders Only | [facility] | Bette Helms ANP | | | 2016 | | CARDIOLOGY [place] | [address] | | | | | [address] | [place], [place] | | | | | [place], [place] | [address] | | | | | [address] | | | | | | [phone] | | | +--------+ + + + [...] | | | | | [place], [place] | | | | | | [address] | | | | | | | [...]
--- OUTSIDE RECORDS SUMMARY | ~2019-09-16 | XMS | Encounter Summary ---
Demographics + + + | Address | [address] | | | [place] [address] | + + + | Home Phone | | + + + | Preferred Language | Unknown | + + + | Marital Status | | + + + | Yazidism Affiliation | 1027 | + + + | Race | Unknown | + + + | Ethnic Group | Unknown | + + + Author + + + | Author | [facility] | | | and [place] | + + + | Organization | [facility] | | [...] Team Providers + +------+ + | Care Superintendent Operations Division Name | Role | Phone | + [...] + + | 08/24/ | Office | [facility] | Bette Helms ANP | Atrial fibrillation, | | 2019 | Visit | [place]ARDIOLOGY [place] | [address] | unspecified type | | | | [address] | [place], [place] | (HCC) (Primary Dx); | | | | [place], [place] | [address] | Paroxysmal atrial | | | | [address] | | fibrillation (HCC); | | | | [phone] | | Hypertension goal BP | | [...] reveals NSR with NSST changes HR 72, MA 164, QRSD 84, QTC 459 EP PROBLEMS [...] complication, without long-term current use of insulin ([facility]) 07/29/2016 HISTORY OF PRESENT ILLNESS This patient [...] Allergies Allergen Reactions Indapamide Other (See Comments) [place] poorly, no energy Codeine Nausea Only Nausea [...] | | | | | [place] | | | | | | [address] | | | | | | | [...] | | | | | by [facility] [place] Read Only, | | | | | | [facility] Hayley ([id number]), | | | | | | assistant production editor Yousif Carrillo | | | | | | [phone]) on 08/24/2019 | | | | | [...]
--- OUTSIDE RECORDS SUMMARY | ~2019-09-16 | XMS | Encounter Summary ---
Demographics + + + | Address | [address] | | | [place] [address] | + + + | Home Phone | | + + + | Preferred Language | Unknown | + + + | Marital Status | | + + + | Religion Affiliation | 1027 | + + + | Race | Unknown | + + + | Ethnic Group | Unknown | + + + Author + + + | Author | [facility] | | | and [place] | + + + | Organization | [facility] | | | [...] Team Providers + +------+ + | Care Vice Principal Name | Role | Phone | + +------+ + | No, Physician | PCP | Unavailable | + +------+ + Encounter Details +--------+ + + + + | Date | Type | Department | Care Team | Description | +--------+ + + + + | 02/16/ | Orders Only | [facility] | Bette Helms, TIA | | | 2018 | | CARDIOLOGY [place] | [address] | | | | | [address] | [place], [place] | | | | | [place], [place] | [address] | | | | | [address] | | | | | | [phone] | | | +--------+ + + + [...] [place] | | | | | | [id number] | | | | | | | | +--------+---------+ + + + documented as of this encounter Visit Diagnoses Not on filedocumented in this encounter"
--- OUTSIDE RECORDS SUMMARY | ~2019-09-16 | XMS | Encounter Summary ---
Demographics + + + | Address | [address] | | | [place] [address] | + + + | Home Phone [...] Team Providers + +------+ + | Care Munitions Handler Supervisor Name | Role | Phone | [...] Provider Unknown | | | | | [place], [place] | [phone] | | | | | [address] | | | | | | [phone] | | | +--------+ + + + [...] [place] | | | | | | [address] | | | | | | | | +--------+---------+ + + + documented as of this encounter Visit Diagnoses Not on filedocumented in this encounter"
--- OUTSIDE RECORDS SUMMARY | ~2019-09-16 | XMS | Encounter Summary ---
Demographics + + + | Address | [address] | | | [place] [address] | + + + | Home Phone | | + + + | Preferred Language | Unknown | + + + | Marital Status | | + + + | Presybeterian Affiliation | 1027 | + + + | Race | Unknown | + + + | Ethnic Group | Unknown | + + + Author + + + | Author | [facility] | | | and [place] | + + + | Organization | [facility] | | | and [...] Team Providers + +------+ + | Care Teacher Learning Disabled Name | Role | Phone | + [...] + + | 07/20/ | Office | [facility] | Bette Helms ANP | Paroxysmal atrial | | 2019 | Visit | CARDIOLOGY [place] | [address] | fibrillation (HCC) | | | | [address] | [place], [place] | (Primary Dx); | | | | [place], [place] | [address] | Hypertension goal BP | | | | [address] | | (blood pressure) < | | | | [phone] | | 140/80 | +--------+---------+ + + [...] reviewed and interpreted reveals AFlutter HR 81, RI , QRSD 82, Q TC 332 Greater [...] long-term current use of insulin ([facility]) 07/29/2016 HISTORY OF PRESENT ILLNESS This patient presents 07/20/2019 Reporting doing poorly with worsening fatigue in the last month. No chest pain or palpitations. No shortness of breath, PND or orthopnea. No signs or symptoms of bleeding. Compliant with medications. INR followed by Coumadin Clinic at [facility], INR was 2.0 yesterday. is ailing with dialysis and dementia, lots of life str essors. Very fatigued on current regimen and reporting some hair loss. Allergies Allergen Reactions Indapamide Other (See Comments) [place] poorly, no energy Codeine Nausea Only Nausea [...] DOSE OF AMIODARONE. Natalie White Medic al Clerk Entry Level - 07/20/2019 1:45 PM Maris JACOBO Note- [...] [place] | | | | | | [address] | | | | | | | [...] | | | | | by [facility] [place] Read Only, | | | | | | [facility] Stephanie ([id number]), | | | | | | photograph editor Yousif Carrillo | | | | [...]
--- OUTSIDE RECORDS SUMMARY | ~2019-09-16 | XMS | Encounter Summary ---
Demographics + + + | Address | [address] | | | [place] [address] | + + + | Home Phone | | + + + | Preferred Language | Unknown | + + + | Marital Status | | + + + | Adventist Affiliation | 1027 | + + + | Race | Unknown | + + + | Ethnic Group | Unknown | + + + Author + + + | Author | [facility] | | | and [place] | + + + | Organization | [facility] | | | [...] Team Providers + +------+ + | Care Installation Coordinator Name | Role | Phone | + [...] + + | 08/23/ | Telephone | [facility] | Bette Helms ANP | Other | | 2019 | | [facility]ARDIOLOGY [place] | [address] | | | | | [address] | [place], [place] | | | | | [place], [place] | [address] | | | | | [address] | | | | | | [phone] | | | +--------+ + + + [...]
--- OUTSIDE RECORDS SUMMARY | ~2019-09-16 | XMS | Encounter Summary ---
Demographics + + + | Address | [address] | | | [place] [address] | + + + | Home Phone | | + + + | Preferred Language | Unknown | + + + | Marital Status | | + + + | Jewish Affiliation | 1027 | + + + | Race | Unknown | + + + | Ethnic Group | Unknown | + + + Author + + + | Author | [facility] | | | and [place] | + + + | Organization | [facility] | | | and [...] Team Providers + +------+ + | Care Guide Setter Name | Role | Phone | + [...] Provider Unknown | | | | | [place], [place] | [phone] | | | | | [address] | | | | | | [phone] | | | +--------+ + + + [...] [place] | | | | | | [address] | | | | | | | | +--------+---------+ + + + documented as of this encounter Visit Diagnoses Not on filedocumented in this encounter"
--- OUTSIDE RECORDS SUMMARY | ~2019-09-16 | XMS | Clinical Summary ---
Demographics + + + | Address | [address] | | | [place] [address] | + + + | Home Phone | | + + + | Preferred Language | Unknown | + + + | Marital Status | | + + + | Sikh Affiliation | Unknown | + + + | Race | Unknown | + + + | Ethnic Group | Unknown | + + + Author + + + | Author | [facility] (Historical as of | | | 05-07-19) | + + + | Organization | [facility] (Historical as of | | | 05-07-19) | + + + | Address | [...] Team Providers + +------+ + | Care Files Supervisor Name | Role | Phone | + +------+ + | Silva Castillo | PP | | + +------+ + Allergies + + + + + + | Active Allergy | Reactions | Severity | Noted | Comments | | | | | Date | | + + + + + + | Codeine | Nausea Only | Low | 07/29/20 | | | | | | 16 | | + + + + + + | Indapamide | Other (See Comments) | Medium | 07/02/20 | [place] poorly, no | | | | | 18 | energy | + + + + + + Current Medications + + +---------+---------+------+------+-------+ | Prescription | Sig. | Disp. | Refills | Star | End | Statu | | | | | | t | Date | s | | | | | | Date | | | + + +---------+---------+------+------+-------+ | metFORMIN | Take 500 mg by mouth | | | | | Activ | | (GLUCOPHAGE) 500 MG | Before eavning | | | | | e | | tablet | meal. | | | | | | + + +---------+---------+------+------+-------+ | warfarin | Take 2.5 mg by mouth | | | | | Activ | | (COUMADIN) 2.5 MG | daily. 2.5mg daily | | | | | e | | tabletIndications: | except Fridays; 5mg | | | | | | | Monitored by [facility] | | | | | | | | [facility] | | | | | | | | clinic | | | | | | | + + +---------+---------+------+------+-------+ | diltiazem | Take 1 tablet by | 30 | 11 | 03/21 | | Activ | | (CARDIZEM) 30 MG | mouth as needed. For | tablet | | 2/20 | | e | | tablet | breakthrough | | | 18 | | | | | Atrial fib not | | | | | | | | controlled by | | | | | | | | sotalol | | | | | | + + +---------+---------+------+------+-------+ | potassium chloride | Take 2 capsules by | 360 | 3 | 07 | | Activ | | (MICRO-K) 10 MEQ CR | mouth 2 (two) times | capsule | | 20 | | e | | capsule | daily. | | | 18 | | | + + +---------+---------+------+------+-------+ | | Take 1 tablet by | 90 | 3 | 06/21 | | Activ | | hydrochlorothiazide | mouth daily. | tablet | | 10/10 | | e | | (HYDRODIURIL) 12.5 | | | | 18 | | | | MG tablet | | | | | | | + + +---------+---------+------+------+-------+ | magnesium oxide | TAKE ONE TABLET BY | 90 | 3 | 05/2 | | Activ | | (MAG-OX) 400 MG TABS | MOUTH EVERY DAY | tablet | | 06/10 | | e | | tablet | | | | 19 | | | + + +---------+---------+------+------+-------+ | levothyroxine | TAKE 1 TABLET BY | 90 | 3 | 05/2 | | Activ | | (SYNTHROID) 88 MCG | MOUTH EVERY MORNING | tablet | | 06/10 | | e | | tablet | BEFORE BREAKFAST | | | 19 | | | + + +---------+---------+------+------+-------+ | amiodarone | Take 1 tablet by | 30 | 11 | 05/3 | 05/3 | Activ | | (PACERONE) 400 MG | mouth daily. 1 | tablet | | 1/20 | 0/20 | e | | tablet | tablet daily for 3 | | | 19 | 20 | | | | months and then 1/2 | | | | | | | | tablet/day | | | | | | | | thereafter. Take | | | | | | | | with food | | | | | | + + +---------+---------+------+------+-------+ | lisinopril | Take 1 tablet by | 90 | 1 | 08/0 | 08/0 | Activ | | (ZESTRIL) 10 MG | mouth nightly. | tablet | | 5/20 | 4/20 | e | | tablet | | | | 19 | 20 | | + + +---------+---------+------+------+-------+ Active Problems + + + | Problem | Noted Date | + + + | Acquired hypothyroidism [...] tolerate | | a higher sitting blood pressure.12/14/2018Improvement in symptoms | | since Lisinopril and HCTZ were lowered. | + + + + + | Pulmonary hypertension (HCC) | 03/19/2017 | + + + + + | Overview: With echo on 06/09/16. PA systolic pressures were | | in the mid 60s. I strongly encouraged her to get a sleep study | | since she may have sleep apnea that is causing this.06/10/2017 | | Again, encouraged sleep study. 11/09/2017 Again, encouraged sleep | | study. | |11/09/2017 | | Again, encouraged sleep study. | + + + + + | Paroxysmal atrial fibrillation (HCC) | 07/29/2016 | + + + + [...] sinus rhythm will be | | maintained long-term.06/10/2017Shtyrel did not tolerate sotalol 80 mg | | twice daily but is amenable to a [...] would recommend transitioning to | | amiodarone, instead.11/09/2017Continue sotalol 40 mg twice daily. | | She is also taking diltiazem 30 mg as needed for breakthrough | | palpitations occurring less than once per month. She is very | | happy on this regimen.07/22/2018Continue sotalol 40 mg twice | | daily. Her QTC is too prolonged to increase the dose any further. | | She is also taking diltiazem 30 mg as needed for breakthrough | | palpitations occurring less than once per week. She is currently | | happy on this regimen. Other option would be Amiodarone, which | | would also be reasonable given her age. We discussed the | | possibility of amiodarone therapy if her breakthrough | | palpitations continue to worsen. She was amenable to changing if | | they did, but preferred to stay on low-dose Sotalol for now. | | 12/14/2018Continue sotalol 40 mg twice daily. Her QTC is too | | prolonged to increase the dose any further. She is also taking | | diltiazem 30 mg as needed for breakthrough palpitations occurring | | less than once per week. She is currently happy on this regimen. | | At my last visit, we discussed the possibility of amiodarone | | therapy if her breakthrough palpitations continue to worsen but | | she does not wish to pursue this medication. 7 day event monitor. | | Check labwork. QTC today was 4536Breakthrough AFIB on | | Sotalol. Changed to Amiodarone. Loading with 400mg daily until | | May 22, then lowering to 200mg daily. QTC today was 415. | | Amiodarone monitoring every 6 months. | + + [...] all possible given her | | orthostatic lightheadedness03/16/2019BP at target today. | + + + + + | Type 2 diabetes mellitus without complication, without long-term | 07/29/2016 | | current use of insulin (HCC) | | + + + Family History + + +------+ + | [...] + | Maternal Grandfather | | | [place],CVA | | | | (Age | | [...] | | | + +---+---+---+ + + +---------+ + | Alcohol Use | Drinks/We | oz/Week | Comments | | | ek | | | + + +---------+ + | No | 0 | 0.0 | | | | Standard | | | | | drinks or | | | | | | | | | | equivalen | | | | | t | | | + + +---------+ + + + + | Sex Assigned at | Date Recorded | | | | + + + | Not on file | | + + + Last Filed Vital Signs + + + + | Vital Sign | Reading | Time Taken | + + + + | Blood Pressure | 132/70 | 03/16/2019 1:46 PM PDT | + + + + | Pulse | 88 | 03/16/2019 1:46 PM PDT | + + + + | Temperature | - | - | + + + + | Respiratory Rate | 20 | 10/04/2018 12:59 PM PST | + + + + | Oxygen Saturation | 97% | 03/16/2019 1:46 PM PDT | + + + + | Inhaled Oxygen | - | - | | Concentration | | | + + + + | Weight | 66.6 kg (146 lb 12.8 | 03/16/2019 1:46 PM PDT | | | oz) | | + + + + | Height | 170.2 cm (5' 7") | 03/16/2019 1:46 PM PDT | + + + + | Body Mass Index | 22.99 | 03/16/2019 1:46 PM PDT | + + + + Plan of Treatment + + + + + | Health Maintenance | Due Date | Last Done | Comments | + + + + + | Diabetic Eye Exam | | | | | | 3 | | | + + + + + | Diabetic Foot Exam | | | | | | 3 | | | + + + + + | Hemoglobin A1c | | | | | | 3 | | | + + + + + | Microalbumin | | | | | Screening | 3 | | | + + + + + | Vaccine: | | | | | Dtap/Tdap/Td (1 - | 2 | | | | Tdap) | | | | + + + + + | Vaccine: Zoster (1 | | | | | of 2) | 3 | | | + + + + + | DEXA SCAN SCREENING | | | | | | 8 | | | + + + + + | Vaccine: | | | | | Pneumococcal 65+ | 8 | | | | Low/Medium Risk (1 | | | | | of 2 - PCV13) | | | | + + + + + | Vaccine: Influenza | | | | | (#1) | 9 | | | + + + + + Results Not on filefrom Last 3 Months Insurance + +--------+ +------+-------+ + | Payer | Benefi | Subscriber | Type | Phone | Address | | | t Plan | ID | | | | | | / | | | | | | | Group | | | | | + +--------+ +------+-------+ + | MEDICARE | MEDICA | [id number] | | | [address] | | | RE | | | | [place] [address] | | | IP-OP | | | | | + +--------+ +------+-------+ + | ODS HEALTH PLAN | ODS | [id number] | | | | | | HEALTH | | | | | | | PLAN | | | | | + +--------+ +------+-------+ + + +--------+ +--------+ + + | Guarantor Name | Accoun | Relation to | Date | Phone | Billing Address | | | t Type | Patient | of | | | | | | | | | | + +--------+ +--------+ + + | GABY DEL RIO | Person | Self [birth year] Home: | [address] | | | al/Fam | | 1931 | [phone] | [place] | | | kana | | | [phone] | + +--------+ +--------+ + +
--- OUTSIDE RECORDS SUMMARY | ~2019-09-16 | XMS | Encounter Summary ---
Demographics + + + | Address | [address] | | | [place] [address] | + + + | Home Phone | | + + + | Preferred Language | Unknown | + + + | Marital Status | | + + + | Methodist Affiliation | 1027 | + + + | Race | Unknown | + + + | Ethnic Group | Unknown | + + + Author + + + | Author | [facility] | | | and [place] | + + + | Organization | [facility] | | | [...] Team Providers + +------+ + | Care Lane Attendant Name | Role | Phone | + +------+ + | No, Physician | PCP | Unavailable | + +------+ + Encounter Details +--------+ + + + + | Date | Type | Department | Care Team | Description | +--------+ + + + + | 08/12/ | Documentati | [facility] | Fiordaliza Natalie Flores, | | | 2019 | on | CARDIOLOGY [place] | Terminal Block Assembler | | | | | [address] | | | | | | [place], [place] | | | | | | [address] | | | | | | [phone] | | | +--------+ + + + [...] | | | | | [place], [place] | | | | | | [address] | | | | | | | | +--------+---------+ + + + documented as of this encounter Procedures + +--------+ + + + | Procedure Name | Priori | Date/Time | Associated Diagnosis | Comments | | | ty | | | | + +--------+ + + + | EXTERNAL LAB: MICHELLE | Routin | 07/26/2019 | | Results [...] + + documented in this encounter Results External Lab: [facility] (07/26/2019 9:46 AM PST) + + + [...] + + | REFERENCE LAB | [address] | [place] [id number] | [phone] | | [facility] | | | | + + + + + T4Tonny (07/26/2019 9:46 AM PST) + + + [...] + + | REFERENCE LAB | [address] | [place] [address] | [phone] | | [facility] | | | | [...] + + | REFERENCE LAB | [address] | [place] [address] | [phone] | | [facility] | | [...] + + + | REFERENCE LAB | [address] | [place] [address] | [phone] | | [facility] | | | | + + + + + documented in this encounter Visit Diagnoses Not on filedocumented in this encounter"
--- OUTSIDE RECORDS SUMMARY | ~2019-09-16 | XMS | Encounter Summary ---
Demographics + + + | Address | [address] | | | [place] [address] | + + + | Home Phone | | + + + | Preferred Language | Unknown | + + + | Marital Status | | + + + | Mandaen Affiliation | 1027 | + + + | Race | Unknown | + + + | Ethnic Group | Unknown | + + + Author + + + | Author | [facility] | | | and [place] | + + + | Organization | [facility] | | | [...] Team Providers + +------+ + | Care Foreign Policy Officer Name | Role | Phone | + +------+ + | No, Physician | PCP | Unavailable | + +------+ + Encounter Details +--------+ + + + + | Date | Type | Department | Care Team | Description | +--------+ + + + + | 07/01/ | Orders Only | [facility] | Nilam Perkins | | | 2017 | | CARDIOLOGY [place] | [address] | | | | | [address] | [address] | | | | | [address] | [place] [address] | | | | | [place] | [phone] | | | | | [address] | | | | | | [phone] | | | +--------+ + + + [...] [place] | | | | | | [id number] | | | | | | | | +--------+---------+ + + + documented as of this encounter Visit Diagnoses Not on filedocumented in this encounter"
--- OUTSIDE RECORDS SUMMARY | ~2019-09-16 | XMS | Encounter Summary ---
Demographics + + + | Address | [address] | | | [place] [address] | + + + | Home Phone | | + + + | Preferred Language | Unknown | + + + | Marital Status | | + + + | Restoration Affiliation | 1027 | + + + | Race | Unknown | + + + | Ethnic Group | Unknown | + + + Author + + + | Author | [facility] | | | and [place] | + + + | Organization | [facility] | | | [...] Team Providers + +------+ + | Care Steam Fitter Supervisor Maintenance Name | Role | Phone | + +------+ + | Silva Castillo | PCP | | | PA | | | + +------+ + Encounter Details +--------+ + + + + | Date | Type | Department | Care Team | Description | +--------+ + + + + | 03/20/ | Orders Only | [facility] | Darrell Dozier, | | | 2017 | | CARDIOLOGY [place] | [address] | | | | | [address] | [place], [place] | | | | | [place], [place] | [address] | | | | | [address] | | | | | | [phone] | | | +--------+ + + + [...] [address] | | | | | | [place], [place] | | | | | | [address] | | | | | | | | +--------+---------+ + + + documented as of this encounter Procedures + +--------+ + + + | Procedure Name | Priori | Date/Time | Associated Diagnosis | Comments | | | ty | | | | + +--------+ + + + | T3, TOTAL | Routin | 03/20/2017 | | Results for this | | | e | 11:08 AM | | procedure are in the | | | | PDT | | results section. | + +--------+ + + + | TSH | Routin | 03/20/2017 | | Results for this | | | e | 11:08 AM | | procedure are in the | | | | PDT | | results section. | + +--------+ + + + | T4, FREE | Routin | 03/20/2017 | | Results for this | | | e | 11:08 AM | | procedure are in the | | | | PDT | | results section. | + +--------+ + + + | MAGNESIUM | Routin | 03/20/2017 | | Results for this | | | e | 11:08 AM | | procedure are in the | | | | PDT | | results section. | + +--------+ + + + | BASIC METABOLIC | Routin | 03/20/2017 | | Results for this | | PANEL | e | 11:08 AM | | procedure are in the | | | | PDT | | results section. | + +--------+ + + + documented in this encounter Results T3 (03/20/2017 11:08 AM PDT) + + + + + + | Component | Value | Ref Range | Performed | Pathologist | | | | | At | Signature | + + + + + + | T3, Total | 78.90 (A) | 80 - 200 | EXTERNAL | | | | | [...] | | | + +---------+ + + TSH (03/20/2017 11:08 AM PDT) + +-------+ + + + | Component | Value | Ref Range | Performed | Pathologist | | | | | At | Signature | + +-------+ + + + | TSH | 1.35 | 0.270 - 4.20 | EXTERNAL | | | | | uIU/mL | LAB | | + +-------+ + + + + + | Specimen | + + | Blood specimen | | (specimen) | + + + +---------+ + + | Performing | Address | City/State/Zipcode | Phone Number | | Organization | | | | + +---------+ + + | EXTERNAL LAB | | | | + +---------+ + + T4, Free (03/20/2017 11:08 AM PDT) + +-------+ + + + | Component | Value | Ref Range | Performed | Pathologist | | | | | At | Signature | + +-------+ + + + | FREE T4 | 1.65 | 0.71 - 1.7 | EXTERNAL | | | (REF) | | | LAB | | + +-------+ + + + + + | Specimen | + + | Blood specimen | | (specimen) | + + + +---------+ + + | Performing | Address | City/State/Zipcode | Phone Number | | Organization | | | | + +---------+ + + | EXTERNAL LAB | | | | + +---------+ + + Magnesium (03/20/2017 11:08 AM PDT) + +-------+ + + + | Component | Value | Ref Range | Performed | Pathologist | | | | | At | Signature | + +-------+ + + + | Magnesium | 1.9 | 1.7 - 2.5 mg/dL | EXTERNAL [...] + +---------+ + + Basic Metabolic Panel (03/20/2017 11:08 AM PDT) + + + + + + | Component | Value | Ref Range | Performed | Pathologist | | | | | At | Signature | + + + + + + | Glucose, | 100 | 70 - 100 mg/dL | EXTERNAL | | | Fasting | | | LAB | | + + + + + + | BUN | 30 (A) | 6 - 23 mg/dL | EXTERNAL | | | | | | LAB | | + + + + + + | Creatinine | 0.52 (A) | 0.70 - 1.11 | EXTERNAL | | | | | mg/dL | LAB | | + + + + + + | BUN/Creatin | 57.7 (A) | 6.0 - 28.6 | EXTERNAL | | | ine Ratio | | | LAB | | + + + + + + | Calcium | 9.7 | 8.4 - 10.2 | EXTERNAL | | | | | mg/dL | LAB | | + + + + + + | Na | 140 | 132 - 143 | EXTERNAL | | | | | mmol/L | LAB | | + + + + + + | K | 3.9 | 3.6 - 5.1 | EXTERNAL | | | | | mmol/L | LAB | | + + + + + + | Cl | 102 | 95 - 112 mmol/L | EXTERNAL | | | | | | LAB | | + + + + + + | CO2 | 27 | 19 - 31 mmol/L | EXTERNAL | | | | | | LAB | | + + + + + + | Anion Gap | 14.9 | 7 - 21 mmol/L | EXTERNAL | | | | | | LAB | | + + + + + + | Estimated | 112 | mg/dL | EXTERNAL | | | GFR [...]
--- OUTSIDE RECORDS SUMMARY | ~2019-09-16 | XMS | Encounter Summary ---
Demographics + + + | Address | [address] | | | [place] [address] | + + + | Home Phone | | + + + | Preferred Language | Unknown | + + + | Marital Status | | + + + | Zoroastrianism Affiliation | 1027 | + + + | Race | Unknown | + + + | Ethnic Group | Unknown | + + + Author + + + | Author | [facility] | | | and [place] | + + + | Organization | [facility] | | | [...] Team Providers + +------+ + | Care Garbage Collector Driver Name | Role | Phone | + +------+ + | No, Physician | PCP | Unavailable | + +------+ + Encounter Details +--------+ + + + + | Date | Type | Department | Care Team | Description | +--------+ + + + + | 08/12/ | Documentati | [facility] | Fiordaliza Natalie Flores, | | | 2019 | on | CARDIOLOGY [place] | Overcoil Stepper | | | | | [address] | | | | | | [place], [place] | | | | | | [address] | | | | | | [phone] | | | +--------+ + + + [...] | | | | | [place], [place] | | | | | | [address] | | | | | | | [...] + + | REFERENCE LAB | [address] | [place] [address] | [phone] | | [facility] | | | | [...] REFERENCE LAB | [address] | [place] [address] | [phone] | | [facility] | | | | [...] + + | REFERENCE LAB | [address] [facility] [address] | [place] [address] | [phone] | | [facility] | | [...] + + + | REFERENCE LAB | [address] | [place] [address] | [phone] | | [facility] | | | | + + + + + documented in this encounter Visit Diagnoses Not on filedocumented in this encounter"
--- OUTSIDE RECORDS SUMMARY | ~2019-09-16 | XMS | Clinical Summary ---
Demographics + + + | Address | [address] | | | [place] [address] | + + + | Home Phone | | + + + | Preferred Language | Unknown | + + + | Marital Status | | + + + | Buddhist Affiliation | Unknown | + + + | Race | Unknown | + + + | Ethnic Group | Unknown | + + + Author + + + | Author | [facility] (Historical as of | | | 05-07-19) | + + + | Organization | [facility] (Historical as of | | | 05-07-19) [...] Team Providers + +------+ + | Care Server Engineer Name | Role | Phone | + [...] (See Comments) | Medium | 07/02/20 | [place] poorly, no | | | | | [...] + | Maternal Grandfather | | | [place],CV[place] | | | | (Age | | [...] +------+-------+ + | MEDICARE | MEDICA | [id number] | | | [address] | | | RE | | | | [place] [address] | | | IP-OP | | | | | + +--------+ +------+-------+ + | ODS HEALTH PLAN | ODS | [id number] | | | | | | HEALTH [...] Self | [birth year] | Home: | [address] | | | al/Fam | | 1931 | [phone] | [place] | | | [place] | | | [phone] | [phone] | + +--------+ +--------+ + +
--- OUTSIDE RECORDS SUMMARY | ~2019-09-16 | XMS | Encounter Summary ---
Demographics + + + | Address | [address] | | | [place] [address] | + + + | Home Phone | | + + + | Preferred Language | Unknown | + + + | Marital Status | | + + + | Oriental Orthodox Affiliation | 1027 | + + + | Race | Unknown | + + + | Ethnic Group | Unknown | + + + Author + + + | Author | [facility] | | | and [place] | + + + | Organization | [facility] | | | [...] Team Providers + +------+ + | Care Intellectual Property Legal Assistant Name | Role | Phone | + +------+ + | No, Physician | PCP | Unavailable | + +------+ + Encounter Details +--------+ + + + + | Date | Type | Department | Care Team | Description | +--------+ + + + + | 02/18/ | Orders Only | [facility] | DozierDarrell olmos Richard, | | | 2018 | | CARDIOLOGY [place] Weber MD [address] | | | | | [address] | [place], [place] | | | | | [place], [place] | [address] | | | | | [address] | | | | | | [phone] | | | +--------+ + + + [...] [place] | | | | | | [address] | | | | | | | | +--------+---------+ + + + documented as of this encounter Visit Diagnoses Not on filedocumented in this encounter"
--- OUTSIDE RECORDS SUMMARY | ~2019-09-16 | XMS | Encounter Summary ---
Demographics + + + | Address | [address] | | | [place] [address] | + + + | Home Phone | | + + + | Preferred Language | Unknown | + + + | Marital Status | | + + + | Christian Affiliation | 1027 | + + + | Race | Unknown | + + + | Ethnic Group | Unknown | + + + Author + + + | Author | [facility] | | | and [place] | + + + | Organization | [facility] | | | and [...] Team Providers + +------+ + | Care Panel Saw Operator Name | Role | Phone | [...] + + | 08/23/ | Telephone | [facility] | Karson Bo, | Lab Results | | 2019 | | CARDIOLOGY [place] | RN | | | | | [address] | | | | | | [place], [place] | | | | | | [address] | | | | | | [phone] | | | +--------+ + + + [...]
--- OUTSIDE RECORDS SUMMARY | ~2019-09-16 | XMS | Clinical Summary ---
Demographics + + + | Address | [address] | | | [place] [address] | + + + | Home Phone | | + + + | Preferred Language | Unknown | + + + | Marital Status | | + + + | Adventism Affiliation | 1027 | + + + | Race | Unknown | + + + | Ethnic Group | Unknown | + + + Author + + + | Author | [facility] | | | and [place] | + + + | Organization | [facility] | | | [...] Team Providers + +------+ + | Care Oracle Database Architect Name | Role | Phone | + [...] (See Comments) | Medium | 07/02/20 | [place] poorly, no | | | | | [...] | | | | | | | ([facility]) | | | | | [...] | | 2018 | on | | Hand Trimmer | | +--------+ + + + + [...] + | Maternal Grandfather | | | [place],CVA | | | | (Age | | [...] [place] | | | | | | [address] | | | | | | | [...] | | | | | by [employer] [place] Read Only, | | | | | | [employer] Stephanie ([id number]), | | | | | | deputy editor in chief Yousif Carrillo | | | | | [...] + + + | REFERENCE LAB | [facility] | [place] [address] | [phone] | | [facility] | | | | [...] | [address] | [place] [address] | [phone] | | [facility] | | [...] + + | REFERENCE LAB | [address] [facility] | [place] [address] | [phone] | | [facility] | | | | [...] + + + | REFERENCE LAB | [address] [place] [address] | [place] [address] | [phone] | | [facility] | | [...] + +--------+ | MEDICARE | MEDICA | [id number] | 03/21/19 | [phone] | | Medica | | | RE | | 98-Pre | 5 | | re | | | PART A | | sent | | | | | | AND B | | | | | | + +--------+ +--------+ + +--------+ | MODA | MODA | [id number] | 09/21/19 | [phone] | [address] | Indemn | | | HEALTH | | 19-Pre | 9 | [phone] | ity | | | MDCR | | sent | | [place], | | | | [place] | | | | [place] [address] | | + +--------+ +--------+ + +--------+ [...] | | al/Fam | | 1931 | [phone] | [place] | | | [place] | | | 3 (Home) | [address] | + +--------+ +--------+ + + Advance Directives + + + + + | Type | Date Recorded | Patient | Explanation | | | | Wire Preparation Worker | | + + + + + | Power of | | | | | Lockstitch Front Maker | | | | + + + + + | Advance | | | | | Directive | | | | + + + + +
--- OUTSIDE RECORDS SUMMARY | ~2019-09-16 | XMS | Encounter Summary ---
Demographics + + + | Address | [address] | | | [place] [address] | + + + | Home Phone | | + + + | Preferred Language | Unknown | + + + | Marital Status | | + + + | Gnosticism Affiliation | 1027 | + + + | Race | Unknown | + + + | Ethnic Group | Unknown | + + + Author + + + | Author | [facility] | | | and [place] | + + + | Organization | [facility] | | | [...] Team Providers + +------+ + | Care Instrumentation Specialist Name | Role | Phone | + [...] [address] | | | | | [place], [place] | [place] [address] | | | | | [address] | [phone] | | | | | [phone] | | | +--------+ + + + [...] [place] | | | | | | [address] | | | | | | | [...] TR Vmax: 1.80 m/s | | | Furniture Painter: Authenticated by: SAM SWEENEY MD Report Date/Time: [...] cmLVIDd: 4.32 cmLVPWd: 1.04 cmLVOT Area: 4.23 [id number] Diam: 2.32 cm%FS: 33.19 | | %EF(Teich): [...] mlLAESV Index (A-L): 23.31 ml/m2LAAs A2C: 16.28 [id number] A-L | | A2C: 39.29 mlLALs A2C: 5.72 cmLAAs A4C: 15.54 [id number] A-L A4C: 40.28 mlLALs | | A4C: 5.09 cmRAAs: 16.74 cm3HYXTK A-L: 50.04 mlRAESV MOD: 47.77 mlRALs: 4.75 | | cmAo Diam: 2.66 cmLA Diam: 4.18 cmLA/Ao: 1.56TAPSE: 1.70 cmAV maxP.14 | | mmHgAV meanP.80 mmHgAV Vmax: 1.01 m/Lala Vmean: 0.80 m/Lala VTI: 24.28 cmAVA | | Vmax: 2.71 cm2AVA (VTI): 2.33 zv1FQHC Vmax: 0.00 cm2/m2AVAI (VTI): 0.00 | | cm2/m2LVOT maxP.70 mmHgLVOT meanP.99 mmHgLVSI Dopp: 31.32 ml/m2LVSV Dopp: | | 56.70 mlLVOT Vmax: 0.65 m/sLVOT Vmean: 0.48 m/sLVOT VTI: 13.39 cmMV A Ariel: | | 0.45 m/sMV DecT: 208.40 msMV E Ariel: 0.89 m/sMV E/A Ratio: 1.97MV PHT: 60.43 | | msMVA By PHT: 3.64 vl2Eekmzd e': 0.04 m/sSeptal E/e': 20.81Lateral e': 0.08 | | m/sLateral E/e': 10.28PV maxP.44 mmHgPV Vmax: 0.78 m/sRAP: 5 mmHgRVSP: | | 18.03 mmHgTR maxP.03 mmHgTR Vmax: 1.80 m/s Furniture Painter:Authenticated by: | | Marizol PARMAR Date/Time: 02-24-2018 [...] |TR Vmax: 1.80 m/s | | | |Furniture Painter: | |Authenticated by: SAM SWEENEY MD | [...]
--- OUTSIDE RECORDS SUMMARY | ~2019-09-16 | XMS | Encounter Summary ---
Demographics + + + | Address | [address] | | | [place] [address] | + + + | Home Phone | | + + + | Preferred Language | Unknown | + + + | Marital Status | | + + + | Gnosticist Affiliation | 1027 | + + + | Race | Unknown | + + + | Ethnic Group | Unknown | + + + Author + + + | Author | [facility] | | | and [place] | + + + | Organization | [facility] | | [...] Team Providers + +------+ + | Care Stock Checker Name | Role | Phone | + +------+ + | Silva Castillo | PCP | | | PA | | | + +------+ + Encounter Details +--------+ + + + + | Date | Type | Department | Care Team | Description | +--------+ + + + + | 03/20/ | Orders Only | [facility] | Darrell Dozier, | | | 2017 | | CARDIOLOGY [place] | [address] | | | | | [address] | [place], [place] | | | | | [place], [place] | [address] | | | | | [address] | | | | | | [phone] | | | +--------+ + + + [...] | | | | | [place], [place] | | | | | | [address] | | | | | | | [...]
--- OUTSIDE RECORDS SUMMARY | ~2019-09-16 | XMS | Encounter Summary ---
Demographics + + + | Address | [address] | | | [place] [address] | + + + | Home Phone | | + + + | Preferred Language | Unknown | + + + | Marital Status | | + + + | Judaism Affiliation | 1027 | + + + | Race | Unknown | + + + | Ethnic Group | Unknown | + + + Author + + + | Author | [facility] | | | and [place] | + + + | Organization | [facility] | | | [...] Team Providers + +------+ + | Care Choir Member Name | Role | Phone | + [...] + + | 08/23/ | Telephone | [facility] | Bette Helms ANP | Other | | 2019 | | CARDIOLOGY [place] | [address] | | | | | [address] | [place], [place] | | | | | [place], [place] | [address] | | | | | [address] | | | | | | [phone] | | | +--------+ + + + [...]
--- OUTSIDE RECORDS SUMMARY | ~2019-09-16 | XMS | Encounter Summary ---
Demographics + + + | Address | [address] | | | [place] [address] | + + + | Home Phone | | + + + | Preferred Language | Unknown | + + + | Marital Status | | + + + | Jehovah'S Witness Affiliation | 1027 | + + + | Race | Unknown | + + + | Ethnic Group | Unknown | + + + Author + + + | Author | [facility] | | | and [place] | + + + | Organization | [facility] | | | and [...] Team Providers + +------+ + | Care Instructional Technology Instructor Name | Role | Phone | + +------+ + | No, Physician | PCP | Unavailable | + +------+ + Encounter Details +--------+ + + + + | Date | Type | Department | Care Team | Description | +--------+ + + + + | 04/01/ | Orders Only | [facility] | Nilam Perkins | | | 2017 | | CARDIOLOGY [place] | [address] | | | | | [address] | [address] [address] | | | | | [address] | [place] [address] | | | | | [place] | [phone] | | | | | [address] | | | | | | [phone] | | | +--------+ + + + [...] [place] | | | | | | 797362 | | | | | | | | +--------+---------+ + + + documented as of this encounter Visit Diagnoses Not on filedocumented in this encounter"
--- OUTSIDE RECORDS SUMMARY | ~2019-09-16 | XMS | Encounter Summary ---
Demographics + + + | Address | [address] | | | [place] [address] | + + + | Home Phone | | + + + | Preferred Language | Unknown | + + + | Marital Status | | + + + | Mormon Affiliation | 1027 | + + + | Race | Unknown | + + + | Ethnic Group | Unknown | + + + Author + + + | Author | [facility] | | | and [place] | + + + | Organization | [facility] | | | and [...] Team Providers + +------+ + | Care Shirt Maker Name | Role | Phone | [...] + + | 07/20/ | Office | [facility] | Bette Helms ANP | Paroxysmal atrial | | 2019 | Visit | CARDIOLOGY [place] | [address] | fibrillation (HCC) | | | | [address] | [place], [place] | (Primary Dx); | | | | [place] | [address] | Hypertension goal BP | | | | [address] | | (blood pressure) < | | | | [phone] | | 140/80 | +--------+---------+ + + [...] reviewed and interpreted reveals AFlutter HR 81, MS , QRSD 82, Q TC 332 Greater [...] complication, without long-term current use of insulin ([facility]) 07/29/2016 HISTORY OF PRESENT ILLNESS This patient presents 07/20/2019 Reporting doing poorly with worsening fatigue in the last month. No chest pain or palpitations. No shortness of breath, PND or orthopnea. No signs or symptoms of bleeding. Compliant with medications. INR followed by Cou[facility] at [facility], INR was 2.0 yesterday. is ailing with dialysis and dementia, lots of life str essors. Very fatigued on current regimen and reporting some hair loss. Allergies Allergen Reactions Indapamide Other (See Comments) [place] poorly, no energy Codeine Nausea Only Nausea [...] reviewed and agree with ROS listed by ODAILS vega. All other systems are reviewed and [...] DOSE OF AMIODARONE. Natalie White Medic al Occupational Health Coordinator - 07/20/2019 1:45 PM Maris JACOBO Note- [...] [place] | | | | | | [address] | | | | | | | [...] | | | | | by [facility] [place] Read Only, | | | | | | [facility] Stephanie ([id number]), | | | | | | assistant [...]
--- OUTSIDE RECORDS SUMMARY | ~2019-09-16 | XMS | Clinical Summary ---
Demographics + + + | Address | [address] | | | [place] [address] | + + + | Home Phone | | + + + | Preferred Language | Unknown | + + + | Marital Status | | + + + | Voodoo Affiliation | Unknown | + + + | Race | Unknown | + + + | Ethnic Group | Unknown | + + + Author + + + | Author | [facility] (Historical as of | | | 05-07-19) | + + + | Organization | [facility] (Historical as of | | | 05-07-19) [...] Team Providers + +------+ + | Care Cyber Forensics Analyst Name | Role | Phone | + [...] (See Comments) | Medium | 07/02/20 | [place] poorly, no | | | | | [...] + | Maternal Grandfather | | | PR,CVA | | | | (Age | | [...] +------+-------+ + | MEDICARE | MEDICA | [id number] | | | [address] | | | [place] | | | | [place] [address] | | | IP-OP | | | | | + +--------+ +------+-------+ + | ODS HEALTH PLAN | ODS | [id number] | | | | | | HEALTH [...] Self | [birth year] Home: | [address] | | | al/Fam | | 1931 | [phone] | [place] | | | kana | | | [phone] | [address] | + +--------+ +--------+ + +
--- OUTSIDE RECORDS SUMMARY | ~2019-09-16 | XMS | Encounter Summary ---
Demographics + + + | Address | [address] | | | [place] [address] | + + + | Home Phone | | + + + | Preferred Language | Unknown | + + + | Marital Status | | + + + | Scientologist Affiliation | 1027 | + + + | Race | Unknown | + + + | Ethnic Group | Unknown | + + + Author + + + | Author | [facility] | | | and [place] | + + + | Organization | [facility] | | | and [...] Team Providers + +------+ + | Care Supersonic Engineer Name | Role | Phone | [...] + + | 05/12/ | Office | [facility] | Nilam Perkins | Paroxysmal atrial | | 2019 | Visit | CARDIOLOGY [place] | [address] | fibrillation (HCC) | | | | [address] | [place] | (Primary Dx); | | | | [address] | [place] [address] | Hypertension goal BP | | | | [place] | [phone] | (blood pressure) < | | | | [address] | | 140/80; Pulmonary | | | | [phone] | | hypertension (HCC); | | | [...] history of paroxysmal atrial fib since 2009 ,[id number] VASC score of 5, essential h ypertension, [...] from 62-67 previously. Pulmonic valve normal, mild TN. No pericardial e ffusion. IVC WNL, CVP [...] GFR 112 INR: 09/28/2017: 2.0 Labs: 05/10/2019: [facility]: CBC: WBC 6.5, RBC 3.88, hemoglobin 12, hematocrit 36.8, platelets 227. INR 1.5. CMP: Glucose 172, BUN 22, creatinine 0.85, GFR 63, sodium 143, pot assium 3.8, chloride 108, albumin 3.2, total bili 0.6, AST 10, ALT 9, alk phos 64, troponin T <0.010 EKG: EKG 2016: Normal sinus rhythm with sinus arrhythmia, rate 67 bpm, TN 144 ms, QRS 82 m s, QTC 439 mm, were compared to EKG in May 2016,T wave inversion has now resolved EK: Sinus rhythm. Rate 73 bpm, TN 150 ms, QRS 68 ms, QTC 449 ms EK06/18: Normal sinus rhythm and nonspecific ST T wave abnormality, rate 87 bpm, TN 146 ms, QRS 80 ms, QTC 445 ms (personally reviewed by me in the office today) EK01/28/2018: Normal sinus rhythm, possible left atrial enlargement, left ventricular hyp ertrophy, nonspecific ST abnormality. Rate 77 bpm, TN 144 ms, QRS 76 ms, QTC 434 ms, lisette ochoa personally reviewed by me EK03/16/2019: Sinus rhythm with occasional PVC. Rate 82 bpm, TN 150 ms, QRS 80 ms, QTC 4 50 ms, tracing personally reviewed by me EK05/10/2019: ([facility]). 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 Rate 115 bpm, QRS 86 ms, QTC 520 ms, tracing personally reviewed by me EK05/12/2019: Sinus rhythm with frequent and consecutive PVCs, LVH with repolarization ab normality, old septal infarct. Rate 82 bpm, TN 146 ms, QRS 82 ms, QTC 462 [...] I have instructed her to see the [facility] weekly to monitor her INR when [...] 2-3 to be monit ored by the [facility] Coumadin clinic. I will see her back [...] past surgical history. Problem list. Juliette QUIROZ [facility] 05/12/2019 Cristin garcia in this [...] [place] | | | | | | [address] | | | | | | | [...] | | | | | by [facility] [place] Read Only, | | | | | | [facility] Stephanie ([id number]), | | | | | | electronic news gathering editor Yousif Carrillo | | | | | | [phone]) on 05/12/2019 | | | | | [...]
--- OUTSIDE RECORDS SUMMARY | ~2019-09-16 | XMS | Encounter Summary ---
Demographics + + + | Address | [address] | | | [place] [address] | + + + | Home Phone [...] Team Providers + +------+ + | Care Pari Mutuel Clerk Name | Role | Phone | [...] + + | 08/23/ | Telephone | [facility] | Karson Bo, | Lab Results | | 2019 | | CARDIOLOGY [place] | RN | | | | | [address] | | | | | | [place], [place] | | | | | | [address] | | | | | | [phone] | | | +--------+ + + + [...]
--- OUTSIDE RECORDS SUMMARY | ~2019-09-16 | XMS | Encounter Summary ---
Demographics + + + | Address | [address] | | | [place] [address] | + + + | Home Phone | | + + + | Preferred Language | Unknown | + + + | Marital Status | | + + + | Islam Affiliation | 1027 | + + + | Race | Unknown | + + + | Ethnic Group | Unknown | + + + Author + + + | Author | [facility] | | | and [place] | + + + | Organization | [facility] | | [...] Team Providers + +------+ + | Care Collaborative Teacher Name | Role | Phone | + +------+ + | No, Physician | PCP | Unavailable | + +------+ + Encounter Details +--------+ + + + + | Date | Type | Department | Care Team | Description | +--------+ + + + + | 07/01/ | Orders Only | [facility] | Nilam Perkins | | | 2017 | | CARDIOLOGY [place] | [address] | | | | | [address] | [address] [address] | | | | | [address] | [place] [address] | | | | | [place] | [phone] | | | | | [address] | | | | | | [phone] | | | +--------+ + + + [...] | 2019 | Visit | | [address] | | | | | | [place] | | | | | | [address] | | | | | | | | +--------+---------+ + + + documented as of this encounter Visit Diagnoses Not on filedocumented in this encounter"
--- OUTSIDE RECORDS SUMMARY | ~2019-09-16 | XMS | Encounter Summary ---
Demographics + + + | Address | [address] | | | [place] [address] | + + + | Home Phone | | + + + | Preferred Language | Unknown | + + + | Marital Status | | + + + | Worship Affiliation | 1027 | + + + | Race | Unknown | + + + | Ethnic Group | Unknown | + + + Author + + + | Author | [facility] | | | and [place] | + + + | Organization | [facility] | | [...] Team Providers + +------+ + | Care Arboriculture Teacher Name | Role | Phone | + +------+ + | No, Physician | PCP | Unavailable | + +------+ + Encounter Details +--------+ + + + + | Date | Type | Department | Care Team | Description | +--------+ + + + + | 08// | Orders Only | [facility] | Nilam Perkins | | | 2019 | | CARDIOLOGY [place] | [address] | | | | | [address] | [address] [address] | | | | | [address] | [place] [address] | | | | | [place] | [phone] | | | | | [address] | | | | | | [phone] | | | +--------+ + + + [...] [place] | | | | | | [id number] | | | | | | | | +--------+---------+ + + + documented as of this encounter Visit Diagnoses Not on filedocumented in this encounter"
--- OUTSIDE RECORDS SUMMARY | ~2019-09-16 | XMS | Encounter Summary ---
Demographics + + + | Address | [address] | | | [place] [address] | + + + | Home Phone | | + + + | Preferred Language | Unknown | + + + | Marital Status | | + + + | Jew Affiliation | 1027 | + + + [...] Team Providers + +------+ + | Care Master At Arms Name | Role | Phone | + [...] + + | 08/24/ | Office | [facility] | Bette Helms ANP | Atrial fibrillation, | | 2019 | Visit | CARDIOLOGY [place] | [address] | unspecified type | | | | [address] | [place], [place] | (HCC) (Primary Dx); | | | | [place], [place] | [address] | Paroxysmal atrial | | | | [address] | | fibrillation (HCC); | | | | [phone] | | Hypertension goal BP | | [...] reveals NSR with NSST changes HR 72, ND 164, QRSD 84, QTC 459 EP PROBLEMS [...] complication, without long-term current use of insulin ([facility]) 07/29/2016 HISTORY OF PRESENT ILLNESS This patient [...] Allergies Allergen Reactions Indapamide Other (See Comments) [place] poorly, no energy Codeine Nausea Only Nausea [...] | | | | | [place] | | | | | | [address] | | | | | | | [...] | | | | | by [facility] [place] Read Only, | | | | | | [facility] Hayley ([id number]), | | | | | | website/blog editor Yousif Carrillo | | | | | | [phone]) on 08/24/2019 | | | | | [...]
--- OUTSIDE RECORDS SUMMARY | ~2019-09-16 | XMS | Encounter Summary ---
Demographics + + + | Address | [address] | | | [place] [address] | + + + | Home Phone [...] Team Providers + +------+ + | Care Tunnel Drier Operator Name | Role | Phone | + +------+ + | Silva Castillo | PCP | | | PA | | | + +------+ + Encounter Details +--------+ + + + + | Date | Type | Department | Care Team | Description | +--------+ + + + + | 03/20/ | Orders Only | [facility] | Darrell Dozier, | | | 2017 | | CARDIOLOGY [place] | [address] | | | | | [address] | [place], [place] | | | | | [place], [place] | [address] | | | | | [address] | | | | | | [phone] | | | +--------+ + + + [...] | | | | | [place], [place] | | | | | | [address] | | | | | | | [...]
--- OUTSIDE RECORDS SUMMARY | ~2019-09-16 | XMS | Encounter Summary ---
Demographics + + + | Address | [address] | | | [place] [address] | + + + | Home Phone [...] Team Providers + +------+ + | Care Sales And Training Specialist Name | Role | Phone | + +------+ + | No, Physician | PCP | Unavailable | + +------+ + Encounter Details +--------+ + + + + | Date | Type | Department | Care Team | Description | +--------+ + + + + | 04/01/ | Orders Only | [facility] | Nilam Perkins | | | 2017 | | CARDIOLOGY [place] | [address] | | | | | [address] | [address] [address] [address] | | | | | [address] | [place] [address] | | | | | [place] | [phone] | | | | | [address] | | | | | | [phone] | | | +--------+ + + + [...] [place] | | | | | | [address] | | | | | | | | +--------+---------+ + + + documented as of this encounter Visit Diagnoses Not on filedocumented in this encounter"
--- OUTSIDE RECORDS SUMMARY | ~2019-09-16 | XMS | Encounter Summary ---
Demographics + + + | Address | [address] | | | [place] [address] | + + + | Home Phone | | + + + | Preferred Language | Unknown | + + + | Marital Status | | + + + | Rastafari Affiliation | 1027 | + + + | Race | Unknown | + + + | Ethnic Group | Unknown | + + + Author + + + | Author | [facility] | | | and [place] | + + + | Organization | [facility] | | | [...] Team Providers + +------+ + | Care Mathematical Technician Name | Role | Phone | + +------+ + | Silva Castillo | PCP | | | PA | | | + +------+ + Encounter Details +--------+ + + + + | Date | Type | Department | Care Team | Description | +--------+ + + + + | 06/09/ | Orders Only | [facility] | Rebeca Akiachak | | | 2015 | | CONVERSION [address] | MD [address] | | | | | [address] | | | | | [place] | [place] [address] | | | | | [address] | [phone] | | | | | [phone] | | | +--------+ + + + [...] [place] | | | | | | [address] | | | | | | | [...] | function NML, Grade 2 diastolic abnormality, [place] visually estimates | | | LVEF 65-70%. [...] | | | Grade 2 diastolic abnormality, [place] visually estimates LVEF 65-70%. | | | [...] structurally normal. | | | Tricuspid Valve: Hnmn-pq-nmztbfrm tricuspid regurgitation present. | | | Pulmonic [...] Large hepatic cyst. | | | MEASUREMENTS Station Baggage Agent: KAE Authenticated by: | | | Klaus Jon DO Report Date/Time: -- [id number] | | + + + + + | Procedure Note | + + | Adal Greenberg Conversion - 05/13/2019 10:47 AM PDT Patient Name: Bruna Del Rio | | of : 1930 Performing Physician: Klaus Jon | | DO INDICATIONS A | | -fib CONCLUSIONS 1. See Dictation. TDS. Sinus. 2. LV dimensions and systolic | | function NML, Grade 2 diastolic abnormality, [place] visually estimates LVEF 65-70%. | | Mild [...] valve appears | | structurally normal.Tricuspid Valve: Bdjm-ie-wezzyhpv tricuspid regurgitation | | present.Pulmonic Valve: Pulmonic valve appears structurally normal.Pulmonic Valve: Mild | | pulmonic regurgitation.Pericardium: There is no pericardial effusion.IVC/Hepatic Veins: | | The IVC is normal size (1.5-2.5cm) and collapses >50% with sniff, consistent with | | central venous pressures of 5-10mmHg.Mass: Large hepatic cyst. MEASUREMENTS | | Station Baggage Agent: Daneticated by: Klaus Gayle Date/Time: -- | | [id number] IMPRESSION: 1. See Dictation. TDS. Sinus. 2. LV dimensions and | | systolic function NML, Grade 2 diastolic abnormality, [place] visually estimates LVEF | | 65-70%. Mild [...] valve appears structurally normal. | |Tricuspid Valve: Plqc-ni-xzepoujb tricuspid regurgitation present. | |Pulmonic Valve: Pulmonic valve appears structurally normal. | |Pulmonic Valve: Mild pulmonic regurgitation. | |Pericardium: There is no pericardial effusion. | |IVC/Hepatic Veins: The IVC is normal size (1.5-2.5cm) and collapses >50% with sniff, consis tent with central venous pressures of 5-10mmHg. | |Mass: Large hepatic cyst. | | | |MEASUREMENTS | | | | | |Station Baggage Agent: DBS | |Authenticated by: Klaus Jon DO | |Report Date/Time: -- [id number] | | | |IMPRESSION: | |1. See Dictation. TDS. Sinus. 2. LV dimensions and systolic function NML, Grade 2 diastol ic abnormality, [place] visually estimates LVEF 65-70%. Mild LAE (by [...]
--- OUTSIDE RECORDS SUMMARY | ~2019-09-16 | XMS | Encounter Summary ---
Demographics + + + | Address | [address] | | | [place] [address] | + + + | Home Phone | | + + + | Preferred Language | Unknown | + + + | Marital Status | | + + + | Presybeterian Affiliation | 1027 | + + + | Race | Unknown | + + + | Ethnic Group | Unknown | + + + Author + + + | Author | [facility] | | | and [place] | + + + | Organization | [facility] | | [...] Team Providers + +------+ + | Care Foreman Shipping Department Name | Role | Phone | + [...] Provider Unknown | | | | | [place], [place] | [phone] | | | | | [address] | | | | | | [phone] | | | +--------+ + + + [...] [place] | | | | | | [address] | | | | | | | | +--------+---------+ + + + documented as of this encounter Visit Diagnoses Not on filedocumented in this encounter"
--- OUTSIDE RECORDS SUMMARY | ~2019-09-16 | XMS | Encounter Summary ---
Demographics + + + | Address | [address] | | | [place] [address] | + + + | Home Phone | | + + + | Preferred Language | Unknown | + + + | Marital Status | | + + + | Orthodox Affiliation | 1027 | + + + | Race | Unknown | + + + | Ethnic Group | Unknown | + + + Author + + + | Author | [facility] | | | and [place] | + + + | Organization | [facility] | | [...] Team Providers + +------+ + | Care Party Plan Sales Director Name | Role | Phone | + +------+ + | No, Physician | PCP | Unavailable | + +------+ + Encounter Details +--------+ + + + + | Date | Type | Department | Care Team | Description | +--------+ + + + + | 08// | Orders Only | [facility] | Nilam Perkins | | | 2019 | | CARDIOLOGY [place] | [address] | | | | | [address] | [address] | | | | | [address] | [place] [address] | | | | | [place] | [phone] | | | | | [address] | | | | | | [phone] | | | +--------+ + + + [...] [place] | | | | | | [id number] | | | | | | | | +--------+---------+ + + + documented as of this encounter Visit Diagnoses Not on filedocumented in this encounter"
--- OUTSIDE RECORDS SUMMARY | ~2019-09-16 | XMS | Encounter Summary ---
Demographics + + + | Address | [address] | | | [place] [address] | + + + | Home Phone | | + + + | Preferred Language | Unknown | + + + | Marital Status | | + + + | Nondenominational Affiliation | 1027 | + + + | Race | Unknown | + + + | Ethnic Group | Unknown | + + + Author + + + | Author | [facility] | | | and [place] | + + + | Organization | [facility] | | [...] Team Providers + +------+ + | Care Dope Edger Name | Role | Phone | + +------+ + | No, Physician | PCP | Unavailable | + +------+ + Encounter Details +--------+ + + + + | Date | Type | Department | Care Team | Description | +--------+ + + + + | 02/16/ | Orders Only | [facility] | Bette Helms, TIA | | | 2018 | | CARDIOLOGY [place] | [address] | | | | | [address] | [place], [place] | | | | | [place], [place] | [address] | | | | | [address] | | | | | | [phone] | | | +--------+ + + + [...] [place] | | | | | | [id number] | | | | | | | | +--------+---------+ + + + documented as of this encounter Visit Diagnoses Not on filedocumented in this encounter"
--- OUTSIDE RECORDS SUMMARY | ~2019-09-16 | XMS | Encounter Summary ---
Demographics + + + | Address | [address] | | | [place] [address] | + + + | Home Phone | | + + + | Preferred Language | Unknown | + + + | Marital Status | | + + + | Baptist Affiliation | 1027 | + + + | Race | Unknown | + + + | Ethnic Group | Unknown | + + + Author + + + | Author | [facility] | | | and [place] | + + + | Organization | [facility] | | | [...] Team Providers + +------+ + | Care Inspection And Testing Supervisor Name | Role | Phone | [...] [address] | | | | | [place], [place] | [place] [address] | | | | | [address] | [phone] | | | | | [phone] | | | +--------+ + + + [...] [place] | | | | | | [address] | | | | | | | [...] TR Vmax: 1.80 m/s | | | Book Coverer: Authenticated by: SAM SWEENEY MD Report Date/Time: [...] cmLVIDd: 4.32 cmLVPWd: 1.04 cmLVOT Area: 4.23 [id number] Diam: 2.32 cm%FS: 33.19 | | %EF(Teich): [...] mlLAESV Index (A-L): 23.31 ml/m2LAAs A2C: 16.28 [id number] A-L | | A2C: 39.29 mlLALs A2C: 5.72 cmLAAs A4C: 15.54 [id number] A-L A4C: 40.28 mlLALs | | A4C: 5.09 cmRAAs: 16.74 [id number] A-L: 50.04 mlRAESV MOD: 47.77 mlRALs: 4.75 | | cmAo Diam: 2.66 cmLA Diam: 4.18 cmLA/Ao: 1.56TAPSE: 1.70 cmAV maxP.14 | | mmHgAV meanP.80 mmHgAV Vmax: 1.01 m/Lala Vmean: 0.80 m/Lala VTI: 24.28 cmAVA | | Vmax: 2.71 cm2AVA (VTI): 2.33 [id number] Vmax: 0.00 cm2/m2AVAI (VTI): 0.00 | | cm2/m2LVOT maxP.70 mmHgLVOT meanP.99 mmHgLVSI Dopp: 31.32 ml/m2LVSV Dopp: | | 56.70 mlLVOT Vmax: 0.65 m/sLVOT Vmean: 0.48 m/sLVOT VTI: 13.39 cmMV A Ariel: | | 0.45 m/sMV DecT: 208.40 msMV E Ariel: 0.89 m/sMV E/A Ratio: 1.97MV PHT: 60.43 | | msMVA By PHT: 3.64 [id number] e': 0.04 m/sSeptal E/e': 20.81Lateral e': 0.08 | | m/sLateral E/e': 10.28PV maxP.44 mmHgPV Vmax: 0.78 m/sRAP: 5 mmHgRVSP: | | 18.03 mmHgTR maxP.03 mmHgTR Vmax: 1.80 m/s Book Coverer:Authenticated by: | | Marizol PARMAR Date/Time: 02-24-2018 [...] |TR Vmax: 1.80 m/s | | | |Book Coverer: | |Authenticated by: SAM SWEENEY MD | [...]
--- OUTSIDE RECORDS SUMMARY | ~2019-09-16 | XMS | Encounter Summary ---
Demographics + + + | Address | [address] | | | [place] [address] | + + + | Home Phone | | + + + | Preferred Language | Unknown | + + + | Marital Status | | + + + | Yazidism Affiliation | 1027 | + + + | Race | Unknown | + + + | Ethnic Group | Unknown | + + + Author + + + | Author | [facility] | | | and [place] | + + + | Organization | [facility] | | | [...] Team Providers + +------+ + | Care Astrochemist Name | Role | Phone | + +------+ + | No, Physician | PCP | Unavailable | + +------+ + Encounter Details +--------+ + + + + | Date | Type | Department | Care Team | Description | +--------+ + + + + | 08/12/ | Documentati | [facility] | Fiordaliza Natalie Flores, | | | 2019 | on | CARDIOLOGY [place] | Education Rn | | | | | [address] | | | | | | [place], [place] | | | | | | [address] | | | | | | [phone] | | | +--------+ + + + [...] | | | | | [place], [place] | | | | | | [address] | | | | | | | [...] + + | REFERENCE LAB | [address] | [place] [address] | [phone] | | [facility] | | | | [...] REFERENCE LAB | [address] | [place] [address] | [phone] | | [facility] | | | | [...] + + | REFERENCE LAB | [address] | [place] [address] | [phone] | | [facility] | | [...] + + + | REFERENCE LAB | [address] | [place] [address] | [phone] | | [facility] | | | | + + + + + documented in this encounter Visit Diagnoses Not on filedocumented in this encounter"
--- OUTSIDE RECORDS SUMMARY | ~2019-09-16 | XMS | Encounter Summary ---
Demographics + + + | Address | [address] | | | [place] [address] | + + + | Home Phone | | + + + | Preferred Language | Unknown | + + + | Marital Status | | + + + | Yarsanism Affiliation | 1027 | + + + | Race | Unknown | + + + | Ethnic Group | Unknown | + + + Author + + + | Author | [facility] | | | and [place] | + + + | Organization | [facility] | | | [...] Team Providers + +------+ + | Care Building Engineer Name | Role | Phone | + +------+ + | No, Physician | PCP | Unavailable | + +------+ + Encounter Details +--------+ + + + + | Date | Type | Department | Care Team | Description | +--------+ + + + + | 04/01/ | Orders Only | [facility] | Nilam Perkins | | | 2017 | | CARDIOLOGY [place] | [address] | | | | | [address] | [address] | | | | | [address] | [place] [address] | | | | | [place] | [phone] | | | | | [address] | | | | | | [phone] | | | +--------+ + + + [...] 2019 | Visit | | [address] | | | | | | [place] | | | | | | [id number] | | | | | | | | +--------+---------+ + + + documented as of this encounter Visit Diagnoses Not on filedocumented in this encounter"
--- OUTSIDE RECORDS SUMMARY | ~2019-09-16 | XMS | Encounter Summary ---
Demographics + + + | Address | [address] | | | [place] [address] | + + + | Home Phone | | + + + | Preferred Language | Unknown | + + + | Marital Status | | + + + | Anabaptist Affiliation | 1027 | + + + [...] Team Providers + +------+ + | Care Trip Follower Name | Role | Phone | + +------+ + PCP | Unavailable | + +------+ + Encounter Details +--------+ + + + + | Date | Type | Department | Care Team | Description | +--------+ + + + + | 01/27/ | Hospital | [facility] | | | | 2001 | Encounter | MED CTR XRAY [address] | | | | | | [address] | | | | | | [place] [address] | | | | | | [phone] | | | +--------+ + + + [...] [place] | | | | | | [address] | | | | | | | | +--------+---------+ + + + documented as of this encounter Visit Diagnoses Not on filedocumented in this encounter"
--- OUTSIDE RECORDS SUMMARY | ~2019-09-16 | XMS | Encounter Summary ---
Demographics + + + | Address | [address] | | | [place] [address] | + + + | Home Phone | | + + + | Preferred Language | Unknown | + + + | Marital Status | | + + + | Anabaptist Affiliation | 1027 | + + + | Race | Unknown | + + + | Ethnic Group | Unknown | + + + Author + + + | Author | [facility] | | | and [place] | + + + | Organization | [facility] | | | and [...] Team Providers + +------+ + | Care Fashion Editor Name | Role | Phone | + [...] | | 2019 | on | CARDIOLOGY [place] | [facility] | 05/18/2019) | | | | [address] | | | | | | [place], [place] | | | | | | [address] | | | | | | [phone] | | | +--------+ + + + [...] [place] | | | | | | [address] | | | | | | | | +--------+---------+ + + + documented as of this encounter Visit Diagnoses Not on filedocumented in this encounter"
[~2019-09-16 10:04] MED LIST changes: +AMIODARONE HCL200 MG PO; +BACTRIM DS TAB1 EACH PO; +CARDIZEM30 MG PO; +COUMADIN2.5 MG PO; +HYDROCHLOROTH12.5 M1 PO; +KLOR-CON 1010 MEQ PO; -KLOR-CON M2020 MEQ PO; +PACERONE200 MG PO; +SYNTHROID100 MCG PO; +ZESTRIL10 MG PO
--- NOTE | 2019-09-16 14:40 | NUR ---
1405: PT ARRIVED TO [facility] AND WAS ORIENTED TO HER ROOM AND THE PRECAUTIONS AND THE USE OF HER CALL ALCOCER. PT NOW RESTING IN HER BED AND THE ASSESSMENT HAS BEEN STARTED.
--- NOTE | 2019-09-16 14:42 | NUR ---
SAT WAS 100% ON 3L, O2 WAS REMOVED AND SAT IS NOW 93%. PT REMAINS ON PULSE OX.
--- NOTE | 2019-09-16 14:53 | NUR ---
Medications reconciled using pharmacy records and patient medication list
--- NOTE | 2019-09-16 15:09 | NUR ---
PT HAD BEEN MEDICATED FOR PAIN ORDERED, SEE EMAR. PT NOW STATES HER PAIN HAS DECREASED TO A 4/10 FROM A 7. HER SAT DECREASED TO 86% ON ROOM AIR, O2 REPLACED AT 2L VIA NC AND HER SAT INCREASED TO 99%. PT NOW SPEAKING WITH THE DC STEAMING CABINET TENDER ISAIAH SALGADO.
--- NOTE | 2019-09-16 15:27 | NUR ---
SAT IS NOW 100% ON 2L VIA NC AND SHE REMAINS ON PULSE OX.
--- NOTE | 2019-09-16 15:48 | NUR ---
Pt was living independently at home. Fell and fx R hip today. Will need SNF placement for NWB or Toe touch weight bearing x 2 months. Uses walker, has BSC, will need a transfer bench for bathing. She retired and active in the community. Sons live in the area and assist her.
--- NOTE | 2019-09-16 15:57 | NUR ---
Pt lying in her bed and she now states her pain is acceptable at a 5/10. The pt's son "Jacob" remains in the room. Gaby just ordered some food at this time.
--- NOTE | 2019-09-16 15:59 | NUR ---
TALKED WITH PT REGARDING TO HER HIP FRACTURE AND WHAT IT MEANS FOR HER FUTURE. WE TALKED ABOUT THE POSSIBLE NECESSITY FOR HER TO GO TO A LONG TERM FACILITY, PT STATES SHE KNOWS THIS IS GOING TO HAPPEN. PT UNDERSTANDS HER HIP FRACTURE AND THE TREATMENT FOR IT. WILL CONT TEACHING WITH PT.
--- NOTE | 2019-09-16 17:23 | NUR ---
Pt eating her dinner at this time. She states her pain is under good control while at rest.
--- NOTE | 2019-09-16 18:46 | NUR ---
SAT 100% ON 2L VIA NC, O2 TURNED OFF. PT VISITING WITH HER FAMILY AND SHE STATES THAT HER PAIN IS UNDER CONTROL AT THIS TIME.
--- NOTE | 2019-09-16 19:14 | NUR ---
PT REPORT RECIEVED FROM ABAD SALGADO. PT VISITING WITH FAMILY IN ROOM. NO NEEDS, CALL LIGHT IN REACH.
--- NOTE | 2019-09-16 21:30 | NUR ---
PT ASSESSMENT COMPLETED. NO INSULIN COVERAGE INDICATED. CMS INTACT IN RLE. NO OTHER NEEDS AT THIS TIME.
--- NOTE | 2019-09-16 22:00 | NUR ---
IV ATTEMPT X2 BY THIS NURSE. CHARGE NURSE CALLED IN TO [facility]. FIELD START IN RIGHT AC WORKING WELL STILL. RNs DECIDED TO NOT TRY A 3RD ATTEMP AND WILL ADVISE MORNING SHIFT OF ATTEMPTS.
--- NOTE | 2019-09-16 22:12 | NUR ---
VITALS AND I&OS DONE AND CHARTED. BEDSIDE TABLE AND CALL LIGHT IN REACH.
--- NOTE | 2019-09-16 22:38 | NUR ---
PT AWAKE IN ROOM. NEW BAG OF IV FLUID PROVIDED. NO OTHER NEEDS. CALL LIGHT IN REACH.
--- NOTE | 2019-09-17 00:26 | NUR ---
PT RESTING IN BED, EYES CLOSED. RR 16, EVEN, UNLABORED. CALL LIGHT IN REACH. PT IS NPO AT THIS TIME.
--- NOTE | 2019-09-17 02:35 | NUR ---
PT RESTING IN BED, EYES CLOSED. RR 12, EVEN, UNLABORED. CALL LIGHT IN REACH.
--- NOTE | 2019-09-17 04:34 | NUR ---
PT AWAKE IN ROOM. ASSESSMENT, VS AND I&O COMPLETED. BLADDER SCAN ATTEMPTED. UNABLE TO FIND BLADDER. DOCKERY ADJUSTED AND EMPTIED. NO OTHER NEEDS. CALL LIGHT IN REACH.
--- NOTE | 2019-09-17 05:31 | NUR ---
PT HAS NOT SLEPT WELL TONIGHT. SHE DENIES PAIN, NAUSEA. CMS INTACT IN RLE. DOCKERY IN PLACE, TOLERATED WELL. IV CDI, WNL, FLUSHED WELL. ATTEMPTED 2ND IV X2 WITHOUT SUCCESS. PT HAS BEEN NPO SINCE MIDNIGHT, TOLERATED WELL. VSS, UO SUFFICIENT, A&O X4.
--- NOTE | 2019-09-17 06:46 | NUR ---
PT AWAKE IN ROOM. PT WIPED DOWN WITH CHLORHEXADINE WIPES FOR SURGERY, CLEAN GOWN. ALL BUT 2 RINGS OF HER JEWELERY REOMED, THEY WOULD NOT COME OFF. OTHER JEWELERY, 2 EARRINGS, PLACED IN BAGGIE WITH NAME STICKER INTO HER PURSE IN ROOM CLOSET. NO OTHER NEEDS AT THIS TIME. CALL LIGHT IN REACH.
--- NOTE | 2019-09-17 08:13 | NUR ---
PATIENT RESTING IN BED, WAITING FOR SURGERY. PATIENT PERFORMED AM CARE. CALL LIGHT IN REACH. NO OTHER NEEDS AT THIS TIME.
--- NOTE | 2019-09-17 08:26 | NUR ---
PT AWAKE, A&OX4; FORGETFUL AT TIMES. PT DENIES NEEDS AT THIS TIME. PERSONAL SUPPLIES AND CALL LIGHT WITHIN REACH.
--- NOTE | 2019-09-17 11:19 | NUR ---
PT BACK TO FLOOR FROM SURGERY. PT AWAKE, A&OX4. 2L OXYGEN PER NC APPLIED PT SAT LEVEL IS 88%; IMMEDIATE INCREASE TO 94% SAT POST 02 ADMION. CHARLENE DRESSING TO RIGHT HIP; SET TO 6L FLASHING GREEN. VS STABLE. DOCKERY INTACT, PATENT CLR YELLOW URINE. CLOSE TO RN STATION. NO NEEDS AT THIS TIME. NO IV AT THIS TIME, ROXANN RN IN ATTEMPTING IV PLACEMENT AT THIS TIME. NO NEEDS.
--- NOTE | 2019-09-17 11:22 | NUR ---
09/17/19 1122 RichardMichaela LE 1015: PATIENT IS COUGHIN ON ARRIVAL TO PACU. PATIENT IS SUCTIONED AND SHE TOLERATES THAT WELL. PATIENT IS DENYING PAIN AT THIS TIME. PATIENT REPORTS FEELING COLD. WARM BLANKETS GIVEN. LE 1045: OXYGEN IS REMOVED. PATIENT IS ON ROOM ARE AND OXYGEN SATURATION IS 93-97%. RIGHT AC IV IS LEAKING. IV ATTEMPT IN LEFT FOREARM IS UNSUCCESSFUL BY ME. 2ND ATTEMPT IN LEFT FOREARM IS UNSUCCESSFUL BY ME. 3RD ATTEMPT IN LEFT UPPER ARM WITH SITE RITE ULTRASOUND SUCCESSFUL. RIGHT AC IV DISCONTINUED. LEFT UPPER ARM IV INFILTRATES AND IV IS DC WNL. GAUZE AND COBAN PLACED OVER EACH SITE. PARALEGAL LEGAL SECRETARY NOTIFIED OF FAILED IV ATTEMPTS AND NAOMI LEY WILL ATTEMPT AN ULTRASOUND IV ON THIS PATIENT ONCE SHE RETURNS TO HER [facility] ROOM. PATIENT TOLERATES IV ATTEMPTS WELL. LARGE BRUISE NOTED AT 1ST ATTEMPT SITE. IT IS NOTED PATIENT IS ON COUMADIN. NO ACTIVE BLEEDING NOTED.
--- NOTE | 2019-09-17 12:00 | NUR ---
ADMIN ONE TAB NORCO 7.5/325MG PO FOR REPORTS OF 6/10 PAIN. SNACK PROVIED.
--- NOTE | 2019-09-17 12:18 | NUR ---
PT AWAKE, A&OX4. PT ON 2L OXYGEN, SAT LEVEL OF 95%. VS STABLE. DRESSING CDI TO RIGHT HIP; ON Q SET AT 6; FLASHING GREEN. PT TOLERATING A SNACK WELL. PERSONAL SUPPLIES AND CALL LIGHT WITHIN REACH. NO NEEDS AT THIS TIME.
--- NOTE | 2019-09-17 13:11 | NUR ---
VITAL SIGNS STABLE. PT A&OX4. PT ON 2l OXYGEN, SAT LEVEL OF 95%, RESP EVEN AND NON LABORED. RIGHT HIP DRESSING CDI; ON Q SET AT 6; FLASHING GREEN. DOCKERY PATENT, CLEAR YELLOW OUTPUT. PERSONAL SUPPLIES AND CALL LIGHT WITHIN REACH.
--- NOTE | 2019-09-17 13:50 | EKG ---
[facility] [address] [place] [address] Signed Sinus rhythm with occasional premature ventricular complexes Left ventricular hypertrophy with repolarization abnormality Abnormal ECG When compared with ECG of 10-MAY-2019 15:13, Sinus rhythm has replaced Atrial fibrillation Vent. rate has decreased BY [address] no longer depressed in Inferior leads Confirmed by WALKER LOAIZA MD ([id number]) on 09/17/2019 1:50:20 PM Electronically Signed By: WALKER LOAIZA MD 09/17/19 1350 PATIENT NAME: OSWALD OJEDAASIA WEAVER Electrocardiogram DATE OF : 34 PHYSICIAN: WALKER LOAIZA MD REPORT #: [id number] REPORT IS CONFIDENTIAL AND NOT TO BE RELEASED WITHOUT AUTHORIZATION
--- NOTE | 2019-09-17 14:19 | NUR ---
PT DOING WELL, A&PX4, ON RA, SAT 100%. PT REPORTS IMPROVED RIGHT HIP PAIN. CHARLENE INTACT, CHARLENE DRESSING CDI; FLASHING GREE. ON Q SET TO 6. PT HAS NO NEEDS. PERSONAL SUPPLIES AND CALL LIGHT WITHIN REACH. CMS INTACT.
--- NOTE | 2019-09-17 17:08 | NUR ---
NORCO 7.5/325MG PO ADMIN AT THIS TIME FOR REPORTS OF 7/10 RIGHT HIP PAIN.
--- NOTE | 2019-09-17 18:08 | NUR ---
PT CONFUSED; SHE ASKED ME IF HER FAMILY WAS LAUGHING IN THE HALLWAY. REORIENTED PT AND SHE THEN STATED "I KEEP THINKING I'M AT HOME AND PEOPLE ARE IN THE HALLWAY". I REMINDED HER THAT SHE IS IN THE HOSPITAL AND HAD HIP SURGERY; PT APPEARS TO REORIENT FAIRLY. BED ALARM INTACT.
--- NOTE | 2019-09-17 18:55 | NUR ---
RECEIVED REPORT FROM NAOMI EDWARDS. pt RESTING IN BED. RATED PAIN 0/10 "WHEN I'M JUST RESTING HERE" DRESSING INTACT, SMALL DROP OF SHADOWING. ONQ PUMP DRESSING HAD SMALL AMOUNT OF DRAINAGE, REINFORCED. WHITEBOARD UPDATED. NO REQUESTS AT THIS TIME. CRYOCUFF IN PLACE. CALL LIGHT WITHIN REACH.
--- NOTE | 2019-09-17 20:10 | NUR ---
pt DESAT TO 79%, O2 SAT THEN INCREASED QUICKLY. pt SAT 94% ON ROOM AIR. RT INFORMED.
--- NOTE | 2019-09-17 21:51 | NUR ---
VITALS AND I&OS DONE AND CHARTED. FILLED CRYO. FRESH WATER GIVEN. BEDSIDE TABLE AND CALL LIGHT IN REACH. PT NEEDS NOTHING AT THIS TIME.
--- NOTE | 2019-09-17 21:52 | NUR ---
pt RESTING IN BED. DENIES PAIN AT THIS TIME. ASSESSMENT DONE. CHARLENE DRESSING CDI, FLASHING GREEN. SCANT DRAINAGE NOTED. CRYOCUFF IN PLACE, NEW ICE. SCDS ON. DOCKERY CARE DONE. MEDICATIONS GIVEN (SEE MAR). NO REQUESTS AT THIS TIME. CALL LIGHT WITHIN REACH.
--- NOTE | 2019-09-17 22:02 | NUR ---
CPOX ALARMING, GOOD PLETH O2 SAT 76%. O2 SAT INCREASED TO 90% ON ROOM AIR AND THEN DIPPED AGAIN BELOW 90%. RT IN ROOM TO EVALUATE. ON 1L O2 VIA NC A TRIAL TO KEEP O2 SAT ABOVE 90%.
--- NOTE | 2019-09-18 00:17 | NUR ---
ROUNDED ON pt. RESTING WITH EYES CLOSED, RESPIRATIONS REGULAR AND UNLABORED. O2 SAT 97% ON 0.5L O2. CALL LIGHT WITHIN REACH.
--- NOTE | 2019-09-18 01:14 | NUR ---
pt RESTING WITH EYES CLOSED, PERIODS OF APNEA NOTED. ON 1L O2 TO MAINTAIN SATS. IV MEDICATION GIVEN (SEE MAR). CALL LIGHT WITHIN REACH.
--- NOTE | 2019-09-18 01:52 | NUR ---
VITALS AND I&OS DONE AND CHARTED. CHECKED CRYO. BEDSIDE TABLE AND CALL LIGHT WITHIN REACH. PT NEEDS NOTHING MORE AT THIS TIME.
--- NOTE | 2019-09-18 03:31 | NUR ---
WITH THE HELP OF RT CLARENCE WE BOOSTED PT UP IN HER BED TO HER COMFORT. BEDSIDE TABLE AND CALL LIGHT IN REACH. CHECKED HER CRYO. PT NEEDS NOTHING MORE AT THIS TIME.
--- NOTE | 2019-09-18 05:25 | NUR ---
FIELD CLERK IN ROOM. MEDICATIONS GIVEN (SEE MAR). pt REPORTED SLEEPING DURING THE SHIFT. NO REQUESTS AT THIS TIME. CALL LIGHT WITHIN REACH. TV REMOTE IN HAND.
--- NOTE | 2019-09-18 06:25 | NUR ---
pt RESTED MOST OF SHIFT. SCHEDULED PAIN MEDS. ONQ PUMP. CHARLENE DRESSING INTACT, SCANT SHADOWING. CRYOCUFF AND SCDS IN PLACE. pt CONFUSED ABOUT OCCASSIONALLY OTHERWISE ALERT AND ORIENTED. IV PAIN MEDS AND ABX. DOCKERY IN PLACE. HAS NOT AMBULATED. DESAT'S WHILE SLEEPING TO HIGH 70'S, 1L O2 TO MAINTAIN SATS. SATS >90 ON ROOM AIR WHILE AWAKE. HAS NOT USED CALL LIGHT.
--- NOTE | 2019-09-18 09:10 | NUR ---
PT SITTING UP IN BED ALERT UPON ENTERING ROOM APPROX 0830. PT ORIENTED TO SELF, LOCATION AND MONTH. ANSWERS "IT'S 1897" IN REFERENCE TO THE CURRENT YEAR. PT EASILY REORIENTED. REPORTS DIZZINESS AND STATES "WHEN I LOOK AT THINGS SOMETIMES IT LOOKS LIKE THERE ARE TWO OF THEM, LIKE THE CLOCK." PT ALSO REPORTS TROUBLE SWALLOWING, NOTED THAT PT HOLDS FLUIDS IN MOUTH FOR QUITE A WHILE BEFORE ATTEMPTING SWALLOW. PT ATE A FEW BITES OF OMELETTE AND DRANK SOME TOMATO JUICE, TOOK PILLS. INITIALLY NO SIGNS OF DISTRESS WHILE EATING BUT SHORTLY AFTER PT HAD A LARGE UNMEASURED EMESIS. PT COUGHING FREQUENTLY. LUNGS COURSE WITH INSPIRATORY AND EXPIRATORY WHEEZES NOTED. O2 SAT 92-96% ON RA. STROKE ASSESSMENT NEGATIVE AT THIS TIME. BOTH DR. LOAIZA AND DR. BROWN NOTIFIED OF CONFUSION, DOUBLE VISION, DIFFICULTY SWALLOWING, AND EMESIS. PT DENIES PAIN. ONQ PUMP AT 6ML/HR, SCANT AMOUNT OF BLOODY DRAIANGE UNDER OPSITE. CHARLENE DRESSING IN PLACE, SCANT AMOUNT OF OLD BLOOD NOTED. SCD'S IN PLACE BRITTANY STROUD. PT MADE NPO. CALL LIGHT WITHIN REACH.
--- NOTE | 2019-09-18 10:15 | NUR ---
P.T. JUST FINISHING UP WITH PT ASSISTING HER TO GET SETTLED BACK IN BED. REPROTS THAT PT WAS ONLY ABLE TO STAND FOR A QUICK SECOND BUT BEGAN VOMITING, 200ML. WAS UNABLE TO STAND AGAIN AFTER THAT. PT RATES PAIN IN RIGHT HIP 2/. DENIES NAUSEA STATES "IT JUST CAME UP". CURRENTLY SITTING UP IN POSITION OF COMFORT. SCD'S IN PLACE BLE, CRYO CUFF TO RIGHT HIP. NOTED INCREASED BLOODY DRAINAGE TO ONQ PUMP INSERTION SITE, CONTAINED WITHIN DRESSING, WILL CONT TO MONITOR CLOSELY. CALL LIGHT WITHIN REACH.
--- NOTE | 2019-09-18 11:49 | NUR ---
PT DESATTED TO 88% ON RA WHILE ASLEEP. PLACED ON 2LNC, SATTING 96%. CALL LIGHT WITHIN REACH.
--- NOTE | 2019-09-18 14:31 | NUR ---
PT ATE MASHED POTATOES AND CHOPPED SOFT PASTA FOR LUNCH, VINCENT WELL. STILL REPORTS SLIGHT DIFFICULTY SWALLOWING BUT PASSED BEDSIDE SWALLOW EVAL. DR. LOAIZA AWARE. PT DENIES PAIN. MEDICATED WITH SCHEDULED TYLENOL. CALL LIGHT WITHIN REACH.
--- NOTE | 2019-09-18 14:33 | NUR ---
PT WEANED TO RA. SATTING 99% ON RA WHILE AWAKE.
--- NOTE | 2019-09-18 17:38 | NUR ---
PT SITTING UP IN BED WATCHING TV WAITING FOR DINNER. DENIES PAIN OR OTHER CONCERNS AT THIS TIME. CALL LIGHT WITHIN REACH.
--- NOTE | 2019-09-18 19:15 | NUR ---
RECEIVED REPORT FROM NAOMI MONTES. pt RESTING IN BED ON 2L O2, SAT >90%. WHITEBOARD UPDATED. CALL LIGHT WITHIN REACH.
--- NOTE | 2019-09-18 21:13 | NUR ---
PATIENT IS RESTING IN BED. DECEMBER CAT HOOKER TAKING VITALS. PATIENT DENIES ANY COMMENTS, QUESTIONS OR CONCERNS. NO NEEDS NOTED. CALL LIGHT IN REACH. ALARM ON FOR SAFETY.
--- NOTE | 2019-09-18 21:40 | NUR ---
ASSESSMENT DONE. pt DENIES PAIN AT THIS TIME. SCHEDULED MEDICATIONS GIVEN (SEE MAR). DOCKERY CARE DONE. DRESSING CDI, NO NEW DRAINAGE NOTED. CHARLENE BLINKING GREEN. CRYOCUFF IN PLACE. CALL LIGHT WITHIN REACH.
--- NOTE | 2019-09-18 21:50 | NUR ---
ROUNDED CHARGE. PATIENT IS RESTING IN BED. PATIENT DENIES ANY NEEDS. SIERRA RN PRESENT IN ROOM. CALL LIGHT IN REACH.
--- NOTE | 2019-09-19 00:07 | NUR ---
ROUNDED ON pt. RESTING IN BED. TV TURNED OFF PER REQUEST. CALL LIGHT WITHIN REACH.
--- NOTE | 2019-09-19 03:00 | NUR ---
ROUNDED ON pt. RESTING WITH EYES CLOSED, RESPIRATIONS REGULAR AND UNLABORED. CALL LIGHT WITHIN REACH.
--- NOTE | 2019-09-19 03:08 | NUR ---
pt SITTING ON SIDE OF BED. PROVIDED MORE COFFEE PER REQUEST. NO FURTHER REQUESTS AT THIS TIME. ASSESSMENT DONE. CALL LIGHT WITHIN REACH.
--- NOTE | 2019-09-19 05:30 | NUR ---
ASSESSMENT DONE. NO CHANGE IN CHARLENE DRESSING. pt DENIES PAIN AT THIS TIME. MEDICATIONS GIVEN (SEE MAR). CALL LIGHT WITHIN REACH.
--- NOTE | 2019-09-19 05:30 | NUR ---
VITALS AND I&OS DONE AND CHARTED. CRYO FILLED . FRESH WATER GIVEN. GARBAGES EMPTIED. BEDSIDE TABLE AND CALL LIGHT IN REACH.
--- NOTE | 2019-09-19 06:14 | NUR ---
pt RESTED ON AND OFF DURING SHIFT. CHARLENE DRESSING CDI, NO NEW DRAINAGE NOTED. ONQ PUMP AND CRYOCUFF IN PLACE. SCDS. pt DENIED PAIN DURING SHIFT. DOCKERY VOIDING QS. USES CALL LIGHT APPROPRIATELY.
--- NOTE | 2019-09-19 07:34 | NUR ---
PT ALERT AND ORIENTED PT REPORTS SHE HAS HAD MORE PAIN AT THROAT THAN AT HIP POST OPERATIVE, MD AWARE, REPORTS FROM SURGERY THAT INTUBATION WAS DIFFICULT DURING SURGICAL PROCEDURE.
--- NOTE | 2019-09-19 07:48 | NUR ---
Called [facility] and left message requesting room availability.
--- NOTE | 2019-09-19 08:01 | NUR ---
Chart faxed to [facility] for review. Awaiting confirmation of room.
--- NOTE | 2019-09-19 09:00 | OR ---
[facility] [address] [place], [place] [address] Signed DATE OF OPERATION: 09/17/2019 SURGEON: Isabel Tanner MD PREOPERATIVE DIAGNOSIS: Intertrochanteric hip fracture, right, nondisplaced. POSTOPERATIVE DIAGNOSIS: Intertrochanteric hip fracture, right, nondisplaced. PROCEDURE PERFORMED: Open reduction and internal fixation of right hip. TEAM PRIMARY CARE PHYSICIAN: None. ANESTHESIA: General. BLOOD LOSS: 100 mL. IMPLANTS: Two hole 135 DHS with a 90 mm lag screw. BRIEF HISTORY: Gaby is an 88-year-old female, who suffered a ground level fall yesterday while feeding her cat. She was admitted to the hospital, cleared by Medicine Service last night and was scheduled for surgery this morning. Risks, benefits, and alternatives were discussed with her and her family. DESCRIPTION OF PROCEDURE: Once consent was obtained, she was taken to the operating room. After adequate anesthesia, she was placed on the fracture table. The left leg was flexed, abducted, and externally rotated on a well-padded leg pop. The right was placed in a foot traction, but no traction was applied. It was internally rotated and slightly abducted. Image intensifier was brought in and the reduction was found to be anatomic still. The hip was then prepped and draped in a standard sterile fashion. Incision was made laterally. A 3-inch incision was made, carried through the skin and subcutaneous tissue. The IT band was divided longitudinally. The vastus lateralis was then split Electronically Signed By: ISABEL TANNER MD 09/19/19 0900 PATIENT NAME: GABY OJEDA OPERATIVE REPORT DATE OF : 34 REPORT #: [id number] PHYSICIAN: ISABEL TANNER MD PCP: CALLIE GERMAN PAC REPORT IS CONFIDENTIAL AND NOT TO BE RELEASED WITHOUT AUTHORIZATION [facility] [address], [place] [address] Signed bluntly and elevated anteriorly and posteriorly. The guide pin for the DHS set was then placed against the lateral femur and centered in the femur. The guide pin was advanced from the lateral cortex across the femoral neck into a center-center position on the head. This was then measured to a 90. This was then overdrilled to 90 and the triple reamer was placed over the guide pin and the drill was advanced until it was well-seated. The guide pin was replaced and the lag screw was then placed over the guide pin and advanced until it was in center-center position in the head. Once this was accomplished, the two hole DHS was placed over this and advanced until it was flushed with the lateral femur. The plate was aligned with the femur and screw holes were drilled and appropriate length screws were placed. Final radiographs showed anatomic reduction, good placement of the screw and sideplate. Wounds were copiously irrigated with antibiotic solution. On-Q pain pump was placed in the anterior portion of the hip superficial to the capsule and just below the IT band. The IT band was then closed using #1 Stratafix, subcutaneous tissue with #1 Stratafix, and the skin with josé antonio. Wounds were dressed with a CHARLENE wound VAC dressing and OpSite for the On-Q pump. She was then awakened, taken to the recovery room in satisfactory condition. All sponge, needle, and instrument counts were correct. Isabel Tanner MD BA/MODL /[id number] Copies: ~ Electronically Signed By: ISABEL TANNER MD 09/19/19 0900 PATIENT NAME: GABY OJEDA MEG OPERATIVE REPORT DATE OF : 34 REPORT #: [id number] PHYSICIAN: ISABEL TANNER MD PCP: CALLIE GERMAN PAC REPORT IS CONFIDENTIAL AND NOT TO BE RELEASED WITHOUT AUTHORIZATION
--- NOTE | 2019-09-19 09:30 | NUR ---
Called and spoke with [facility] as [facility] out today. He will review chart and call me back.
--- NOTE | 2019-09-19 09:36 | NUR ---
PT UP TO BEDSIDE COMMODE THEN TO RECLINER, 2 PERSON MODERATE ASSIST WITH FWW, TOE TOUCH WT ONLY ON RIGHT. PT REPORT INCREASE OF PAIN TO 8/10 WITH ACTIVITY. 5/10 WITH REST NOW. PT GIVEN 1 TAB PO PRN NORCO AT THIS TIME, WITH PUDDING.
--- NOTE | 2019-09-19 09:40 | NUR ---
[facility] called, can accept pt today. Unable to guarantee admit for tomorrow. Called into OR and spoke with Dr. Tanner. He will write orders for discharge for today.
--- NOTE | 2019-09-19 10:03 | NUR ---
PATIENT SITTING IN CHAIR WITH FEET UP WATCHING TV. CCRYO FILLED. LINENS CHANGED. PATIENT DID ORAL CARE. PATIENT SAID BED BATH MAYBE LATER. CALL LIGHT IN REACH. NO FURTHER NEEDS AT THIS TIME.
--- NOTE | 2019-09-19 11:02 | NUR ---
PT WORKING WITH OCCUPATIONAL THERAPY AT THIS TIME. SHE REPROTS PAIN HAS IMPROVED TO 2/10 AT THIS TIME.
--- NOTE | 2019-09-19 13:00 | NUR ---
Orders completed by Dr. Tanner for SNF and faxed to [facility]. He called later and stated they were ok and pt is accepted to [facility]. RX for pain and resumption of warfarin written by Dr Carrillo after call to the OR as SNF needs hard copy. Staff will call ambulance for transport when pt is ready to go. Per RT pt is a two person assist and unable to situp for the ride to [place].
--- NOTE | 2019-09-19 13:23 | NUR ---
PATIENT IN CHAIR WATCHING TV. CALL LIGHT IN REACH. NO FURTHER NEEDS AT THIS TIME. WARM BLANKET GIVEN.
--- NOTE | 2019-09-19 13:24 | NUR ---
DOCKERY CATHETER REMOVED AT THIS TIME. PER ORDER
--- NOTE | 2019-09-19 13:55 | NUR ---
PT REPORTS PAIN 3-4/10 AT THIS TIME. NORCO 1 TAB POPRN GIVEN FOR PAIN COVERAGE AND FOR PAIN MANAGEMENT FOR TRANSPORT TO [facility] IN [place].
--- NOTE | 2019-09-19 13:59 | NUR ---
SONAM SOW CALLED TO UPDATE ON DISCHARGE PLAN TO [facility] AND THAT TRANSPORT HAS BEEN CALLED.
--- NOTE | 2019-09-19 14:30 | NUR ---
UPDATED ON PT STATUS AND NOT HAVING FIRST VOID SINCE DOCKERY REMOVED AT 1330 THIS AFTERNOON.
--- NOTE | 2019-09-19 14:44 | NUR ---
BEDSIDE REPORT TO EMS PT TO BE TRANSPORTED AT THIS TIME. IV SITE REMOVED WNL. PT ALERT AND REPORTS PAIN IS WELL MANAGED AT REST. PT HAS PJ PANTS FROM HOSPITAL ON.
--- NOTE | 2019-09-19 14:56 | NUR ---
REPORT CALLED TO CHULA SALGADO AT [facility].
== END 2019-09-19 14:40 | DRG 482 ==
LOC: ED 10:04 → MS 13:46
PROVIDERS: ADMIT Specialist
PROC: 0QS604Z Reposition Right Upper Femur with Internal Fixation Device, Open Approach (ICD-10-PCS; principal; 2019-09-17 08:00)
DX: S72.144A Nondisplaced intertrochanteric fracture of right femur, initial encounter for closed fracture (principal); I48.0 Paroxysmal atrial fibrillation; M19.90 Unspecified osteoarthritis, unspecified site; I25.10 Atherosclerotic heart disease of native coronary artery without angina pectoris; E11.9 Type 2 diabetes mellitus without complications; I10 Essential (primary) hypertension; E03.9 Hypothyroidism, unspecified; R13.10 Dysphagia, unspecified; Y93.89 Activity, other specified; W18.30XA Fall on same level, unspecified, initial encounter; Y92.009 Unspecified place in unspecified non-institutional (private) residence as the place of occurrence of the external cause; Z79.899 Other long term (current) drug therapy; Z79.01 Long term (current) use of anticoagulants; Z79.84 Long term (current) use of oral hypoglycemic drugs
CPT/HCPCS: 36415; 51702; 51798; 71045; 72192; 73502; 80048; 80053; 81001; 83735; 85025; 85610; 93005; 93010; 94762; 97162; 97165; 97530; 99285-25; A9270; C1713; J0131; J0690; J1170; J3010; J3480

== ENCOUNTER 2020-11-24 12:22 | Emergency (ER) | payer MEDICARE, OTHER ==
[~2020-11-24] VITALS: Ht 170.2 cm; Wt 62.6 kg
[~2020-11-24 12:22] MED LIST changes: +WARFARIN SODIUM2 MG PO
[2020-11-24] MEDS ORDERED: CALCIUM 600 +1 EAC5 PO (12:55)
[2020-11-24] MEDS ORDERED: IRON CHEWS15 MG (12:55)
--- NOTE | 2020-11-24 18:17 | EKG ---
[facility] [address] [place] [address] Signed Normal sinus rhythm T wave abnormality, consider anterior ischemia Abnormal ECG When compared with ECG of 16-SEP-2019 10:35, premature ventricular complexes are no longer present Confirmed by JESSICA WINTER MD ([id number]) on 11/24/2020 6:17:13 PM Electronically Signed By: JESSICA WINTER MD 11/24/20 1817 PATIENT NAME: JUANY OJEDA MEG Electrocardiogram DATE OF : 34 PHYSICIAN: JESSICA WINTER MD REPORT #: [id number] REPORT IS CONFIDENTIAL AND NOT TO BE RELEASED WITHOUT AUTHORIZATION
== END 2020-11-24 16:25 | disposition home or self-care (01) ==
LOC: ED 12:22
DX: S00.83XA Contusion of other part of head, initial encounter (principal); G93.89 Other specified disorders of brain; W01.198A Fall on same level from slipping, tripping and stumbling with subsequent striking against other object, initial encounter; I10 Essential (primary) hypertension; I48.91 Unspecified atrial fibrillation; E03.9 Hypothyroidism, unspecified; Z88.5 Allergy status to narcotic agent; Z79.899 Other long term (current) drug therapy; Z79.01 Long term (current) use of anticoagulants
CPT/HCPCS: 70450; 70486; 80048; 81001; 84484; 85025; 85610; 93005; 93010; 99284-25

== ENCOUNTER 2021-10-17 17:56 | Emergency (ER) | payer MEDICARE, OTHER ==
[~2021-10-17] VITALS: Ht 170.2 cm; Wt 69.7 kg
[~2021-10-17 17:56] MED LIST changes: +CALCIUM 600 +1 EAC5 PO; +FUROSEMIDE20 MG PO; +IRON CHEWS15 MG
== END 2021-10-17 22:18 | disposition home or self-care (01) ==
LOC: ED 17:56
DX: S00.03XA Contusion of scalp, initial encounter (principal); S80.212A Abrasion, left knee, initial encounter; I10 Essential (primary) hypertension; I48.91 Unspecified atrial fibrillation; E03.9 Hypothyroidism, unspecified; Z88.8 Allergy status to other drugs, medicaments and biological substances; Z79.01 Long term (current) use of anticoagulants; Z79.890 Hormone replacement therapy; Z79.899 Other long term (current) drug therapy; W18.30XA Fall on same level, unspecified, initial encounter
CPT/HCPCS: 70450; 72125; 85610; 99284-25

== ENCOUNTER 2021-11-16 00:06 | Emergency (ER) | payer MEDICARE, OTHER ==
--- OUTSIDE RECORDS SUMMARY | 2021-11-16 00:14 | XMS ---
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 Svetlana VISIT COUNT (12 MO.) 3 [facility] TOTAL 3 NOTE: Visits indicate total known visits. ED/UCC VISIT TRACKING (12 MO.) 11/16/2021 00:07 [facility] TYPE: Emergency COMPLAINT: - HEAD INJURY 10/17/2021 17:56 [facility] TYPE: Emergency COMPLAINT: - FALL,HEAD INJ DIAGNOSES: - Allergy status to other drugs, medicaments and biological substances - Other intermodal dispatcher (current) drug therapy - Hypothyroidism, unspecified - Unspecified injury of head, initial encounter - Abrasion, left knee, initial encounter - medical terminologist (current) use of anticoagulants - Contusion of scalp, initial encounter - Fall on same level, unspecified, initial encounter - Essential (primary) hypertension - Unspecified atrial fibrillation - Hormone replacement therapy 11/24/2020 12:[address] [facility] [place] TYPE: Emergency COMPLAINT: - FALL, FACE INJ DIAGNOSES: - medical terminologist (current) use of anticoagulants - Contusion of other part of head, initial encounter - Other specified disorders of brain - Hypothyroidism, unspecified - Essential (primary) hypertension - Unspecified atrial fibrillation - Other jail (current) drug therapy - Allergy status to narcotic agent - Fall on same level from slipping, tripping and stumbling with subsequent striking against other object, initial encounter INPATIENT VISIT TRACKING (12 MO.) No inpatient visits to display in this time frame [id number]
== END 2021-11-16 01:10 | disposition home or self-care (01) ==
LOC: ED 00:06
DX: S06.0X0A Concussion without loss of consciousness, initial encounter (principal); I10 Essential (primary) hypertension; I48.91 Unspecified atrial fibrillation; E03.9 Hypothyroidism, unspecified; Z88.5 Allergy status to narcotic agent; Z79.01 Long term (current) use of anticoagulants; Z79.899 Other long term (current) drug therapy; W19.XXXA Unspecified fall, initial encounter; W22.8XXA Striking against or struck by other objects, initial encounter
CPT/HCPCS: 36415; 70450; 80048; 85025; 85610; 85730; 99284-25; A9270

== ENCOUNTER 2021-11-19 10:28 | Emergency (ER) | payer MEDICARE, OTHER ==
[~2021-11-19] VITALS: Ht 170.2 cm; Wt 69.7 kg
--- OUTSIDE RECORDS SUMMARY | 2021-11-19 10:34 | XMS ---
PreManage Notification: JUANY OJEDA Security Mechanical Drawing Teacher Events No recent Security Events currently on file CRITERIA MET - [facility] - 2 Visits in 30 Days CARE PROVIDERS CALLIE GERMAN Physician [place]man Current PHONE: Unknown VERA Vasquez [facility] Current PHONE: [phone] Joe BAI Nurse Practitioner: Family Current PHONE: [phone] Fox has no Care Guidelines for this patient. Svetlana VISIT COUNT (12 MO.) [address] [facility] TOTAL 4 NOTE: Visits indicate total known visits. ED/UCC VISIT TRACKING (12 MO.) 11/19/2021 10:30 [facility] TYPE: Emergency COMPLAINT: - FATIGUED, NAUSEA, CHEST PAIN, SWOLLEN FEET 11/16/2021 00:07 [facility] TYPE: Emergency COMPLAINT: - HEAD INJURY DIAGNOSES: - Hypothyroidism, unspecified - Concussion without loss of consciousness, initial encounter - Unspecified fall, initial encounter - Striking against or struck by other objects, initial encounter - residential (current) use of anticoagulants - Unspecified injury of head, initial encounter - Allergy status to narcotic agent - Essential (primary) hypertension - Other termite control service representative (current) drug therapy - Unspecified atrial fibrillation 10/17/2021 17:56 [facility] TYPE: Emergency COMPLAINT: - FALL,HEAD INJ DIAGNOSES: - Allergy status to other drugs, medicaments and biological substances - Other termite control service representative (current) drug therapy - Hypothyroidism, unspecified - Unspecified injury of head, initial encounter - Abrasion, left knee, initial encounter - intermodal owner operator truck driver (current) use of anticoagulants - Contusion of scalp, initial encounter - Fall on same level, unspecified, initial encounter - Essential (primary) hypertension - Unspecified atrial fibrillation - Hormone replacement therapy 11/24/2020 12:23 [facility] TYPE: Emergency COMPLAINT: - FALL, FACE INJ DIAGNOSES: - intermodal owner operator truck driver (current) use of anticoagulants - Contusion of other part of head, initial encounter - Other specified disorders of brain - Hypothyroidism, unspecified - Essential (primary) hypertension - Unspecified atrial fibrillation - Other termite control service representative (current) drug therapy - Allergy status to narcotic agent - Fall on same level from slipping, tripping and stumbling with subsequent striking against other object, initial encounter INPATIENT VISIT TRACKING (12 MO.) No inpatient visits to display in this time frame [id number]
[2021-11-19] MEDS ORDERED: AMIODARONE HCL200 MG PO (12:50)
[2021-11-19] MEDS ORDERED: NITROGLYCERIN0.4 MG SL (14:18)
--- NOTE | 2021-11-20 07:22 | EKG ---
[facility] [address] [place], [place] [address] Signed Normal sinus rhythm Septal infarct , age undetermined Abnormal ECG No previous ECGs available Confirmed by JESSICA WINTER MD ([id number]) on 11/20/2021 7:22:30 AM Electronically Signed By: JESSICA WINTER MD 11/20/21721 PATIENT NAME: JUANY OJEDA MEG Electrocardiogram DATE OF : 34 PHYSICIAN: JESSICA WINTER MD REPORT #: [id number] REPORT IS CONFIDENTIAL AND NOT TO BE RELEASED WITHOUT AUTHORIZATION
--- NOTE | 2021-11-20 07:24 | EKG ---
[facility] [address] [place], [place] [address] Signed Sinus bradycardia Septal infarct (cited on or before 19-NOV-2021) T wave abnormality, consider anterior ischemia Abnormal ECG When compared with ECG of 19-NOV-2021 10:36, (Unconfirmed) No significant change was found Confirmed by JESSICA WINTER MD ([id number] on 11/20/2021 7:24:29 AM Electronically Signed By: JESSICA WINTER MD 11/20/21 0724 PATIENT NAME: LYNETTEJUANY MEG Electrocardiogram DATE OF : 34 PHYSICIAN: JESSICA WINTER MD REPORT #: [id number] REPORT IS CONFIDENTIAL AND NOT TO BE RELEASED WITHOUT AUTHORIZATION
== END 2021-11-19 15:15 | disposition home or self-care (01) ==
LOC: ED 10:28
DX: I20.9 Angina pectoris, unspecified (principal); I10 Essential (primary) hypertension; I48.91 Unspecified atrial fibrillation; E03.9 Hypothyroidism, unspecified; Z88.5 Allergy status to narcotic agent; Z79.01 Long term (current) use of anticoagulants; Z79.899 Other long term (current) drug therapy
CPT/HCPCS: 36415; 71045; 80053; 83735; 84484; 85025; 85730; 93005; 93010; 99285-25

== ENCOUNTER 2022-09-04 14:35 | Emergency (ER) | payer MEDICARE, OTHER ==
[~2022-09-04] VITALS: Ht 170.2 cm; Wt 57.0 kg
[~2022-09-04 14:35] MED LIST changes: +CEPHALEXIN500 MG PO; +NITROGLYCERIN0.4 MG SL
== END 2022-09-04 18:37 | disposition home or self-care (01) ==
LOC: ED 14:35
DX: S09.90XA Unspecified injury of head, initial encounter (principal); I10 Essential (primary) hypertension; I48.91 Unspecified atrial fibrillation; E03.9 Hypothyroidism, unspecified; Z88.5 Allergy status to narcotic agent; Z79.01 Long term (current) use of anticoagulants; Z79.899 Other long term (current) drug therapy; W06.XXXA Fall from bed, initial encounter
CPT/HCPCS: 70450; 99284-25